=== PATIENT | male | born 1930 | race Caucasian/White ===

== ENCOUNTER 2017-02-25 15:06 | Inpatient (IN) | payer OTHER ==
[~2017-02-25] VITALS: Ht 185.4 cm; Wt 75.6 kg
[~2017-02-25 15:06] MED LIST: FLUT0.15 NAE; FOLI1TAB7 PO; HYDR200T5 PO; METH2.5T PO; MULTTAB58 PO; NUTR-706 PO; PRED1SUS OPL; SENN-61 PO
[2017-02-25] MEDS ORDERED: ONDANSETRON INJ 2 MG/ML 2 ML VIAL ONE (15:18)
[2017-02-25] MEDS ORDERED: PRED-301 PO (15:47)
[2017-02-25] MEDS ORDERED: SODIUM CHLORIDE 0.9% 1000ML 1,000 ML IV STA ×3 (16:12→21:43)
[2017-02-25] MEDS ORDERED: FAMOTIDINE 20MG/102 ML D5W IV STA (16:12)
--- NOTE | 2017-02-25 16:18 | EMERGENCY ROOM VISIT NOTE ---
History Report prepared by Michele: Mikki Riggs Under the Supervision of: Dr. Sampson Kenny M.D. First contact with patient: 16:02 Chief Complaint: VOMITING Stated Complaint: difficulty swallowing Nursing Triage Summary: pt arrived als reported felt throat closing then started with thick mucus and drive heving then to vomiting bile pt and report this happened before pt had to have 1/2 stomach removed 2011 ( stomach tissue) caused buring in the throat was on feeding tube for 8 months bladder [id number] History of Present Illness The patient is a 86 year old male who presents to the Emergency Room with complaints of sudden difficulty swallowing beginning today. He states that he feels as if something is closing his throat and that it is painful to swallow. Per his , he had these symptoms 5 years ago and had a stomach resection and was placed on a feeding tube for 8 months. The patient has also been vomiting and has had bile in his stool. He denies fevers, chills, diarrhea, and constipation. The patient also denies chest pain and shortness of breath. He reports that he is not on any blood thinners. The patient has an ostomy because he has bladder cancer. Source of History: patient, spouse/significant other Onset: today Position: throat Quality: other (difficulty swallowing ) Timing: other (sudden) Associated Symptoms: + vomiting, + urinary symptoms (bile in stool), No fevers, No chills, No chest pain, No SOB, No diarrhea Review of Systems See HPI for pertinent positives and negatives. A total of ten systems were reviewed and were otherwise negative. Past Medical & Surgical Medical Problems: (1) Benign hypertension (2) Benign prostatic hyperplasia (3) Bladder cancer (4) Chronic ischemic heart disease (5) Gastroesophageal reflux disease (6) History of polyp of colon (7) Hyperlipidemia (8) Hypotension (9) s/p colonoscopy with polypectomy (10) s/p hemorrhoidectomy (11) s/p hernia repair (12) s/p lap cholecystectomy (13) s/p tonsillectomy (14) SBO (small bowel obstruction) Family History No pertinent family history stated. Social History Smoking Status: Never Smoker Alcohol Use: none Marital Status: Housing Status: lives with family Current/Historical Medications Scheduled Enteral Nutrition Formula (Ensure), 1 DOSE PO TID Hydroxychloroquine Sulfate (Plaquenil), 400 MG PO QPM Multiple Vitamin (Multivitamin), 1 TAB PO QAM Prednisone (Prednisone), 5 MG PO BID Senna (Senokot), 1 TAB PO BID Scheduled PRN Fluticasone Propionate (Nasal) (Flonase Allergy Relief), 2 SPRAYS BRITTNEY DAILY PRN for Nasal Congestion Allergies Coded Allergies: Piperacillin (Verified Allergy, Severe, SHORTNESS OF BREATH, 02/25/17) Tazobactam (Verified Allergy, Severe, SHORTNESS OF BREATH, 02/25/17) Sulfa Antibiotics (Verified Allergy, Unknown, SWELLING, 02/25/17) Propoxyphene (Verified Adverse Reaction, Unknown, BLOOD PRESSURE DROPS, ) Physical Exam Vital Signs Date Time Temp Pulse Resp B/P (MAP) Pulse Ox O2 Delivery O2 Flow Rate FiO2 02/25/17 21:59 75 22 104/77 93 Nasal Cannula 2.0 02/25/17 21:44 83 02/25/17 21:09 82 02/25/17 20:05 84 22 133/82 92 02/25/17 18:26 81 24 146/97 98 Room Air 02/25/17 17:05 72 18 174/93 100 Room Air 02/25/17 16:16 80 02/25/17 15:29 36.8 76 18 166/90 98 Room Air Physical Exam GENERAL: Awake, alert, chronically ill-appearing, fatigued HENT: Normocephalic, atraumatic. Oropharynx unremarkable. Dry mucous membranes. EYES: Normal conjunctiva. Sclera non-icteric. NECK: Supple. No nuchal rigidity. FROM. No JVD. RESPIRATORY: Clear to auscultation. CARDIAC: Regular rate, normal rhythm. Extremities warm and well perfused. Pulses equal. ABDOMEN: Soft, non-distended. No tenderness to palpation. No rebound or guarding. No masses. RECTAL: Deferred. MUSCULOSKELETAL: Chest examination reveals no tenderness. The back is symmetrical on inspection without obvious abnormality. There is no CVA tenderness to palpation. No joint edema. LOWER EXTREMITIES: Calves are equal size bilaterally and non-tender. No edema. No discoloration. NEURO: Normal sensorium. No sensory or motor deficits noted. SKIN: No rash or jaundice noted. Medical Decision & Procedures ER Provider Diagnostic Interpretation: X-ray: Per my interpretation, radiologist review. CHEST ONE VIEW PORTABLE CLINICAL HISTORY: sob dyspnea COMPARISON STUDY: 06/04/2012 FINDINGS: Interval radiopaque densities of both lung bases. Mild chronic right apical pleural thickening. No focal infiltrate. No cardiac enlargement. IMPRESSION: Chronic change. No acute process. The above report was generated using voice recognition software. It may contain grammatical, syntax or spelling errors. Electronically signed by: Shahbaz Chandra M.D. 02/25/2017 4:44 PM Dictated Date/Time: 02/25/2017 4:43 PM Radiology results as stated below per my review and radiologist interpretation: SOFT TISSUE NECK WITH CLINICAL HISTORY: dysphagia h/o cancer neoplasm. Dysphagia. TECHNIQUE: Transaxial acquisition with multi axial reformatted images COMPARISON STUDY: None FINDINGS: Major salivary glands appear unremarkable. The parotid and submandibular glands are unremarkable. No evidence for major airway compromise. The epiglottis is normal. Mild to moderate fullness of the soft tissues in the region of the larynx. The glottic and subglottic regions are unremarkable. Pulmonary apices show mild apical fibrotic changes in the right. There is no significant cervical adenopathy. IMPRESSION: 1. Mild/moderate laryngeal general edema. 2. No evidence for significant airway compromise. 3. No significant adenopathy, mass, or collection. The above report was generated using voice recognition software. It may contain grammatical, syntax or spelling errors. Electronically signed by: Shahbaz Chandra M.D. 02/25/2017 7:17 PM Dictated Date/Time: 02/25/2017 7:[address] WITH CONTRAST CT DOSE: HISTORY: dysphagia h/o cancer TECHNIQUE: Multiaxial CT images of the chest were performed following the intravenous administration of contrast. A dose lowering technique was utilized adhering to the principles of ALARA. COMPARISON: None. FINDINGS: No pneumothorax. No pleural effusions. Right middle lobe and left basilar clustered densities suggestive of prior barium aspiration. Mild laryngeal edema. Mild esophageal wall thickening/submucosal edema. No mediastinal or hilar lymphadenopathy. The heart is normal in size. No pericardial effusion. A single prominent left axillary lymph node measuring 16 x 9 mm. This measures subcentimeter in short axis diameter and therefore does not meet CT criteria for pathologic involvement. Coronary artery calcifications. The ascending thoracic aorta measures up to 3.8 cm in diameter. No evidence for aortic dissection. The main pulmonary arteries are patent. No suspicious lytic or blastic osseous lesions. Mild central bronchial wall thickening. The central airways are patent. Mild nodular groundglass densities within the infrahilar locations adjacent to the multiple clustered calcifications. A few faint tree-in-bud nodular opacities within the periphery the right lower lobe. A few linear scarlike densities within the lingula. IMPRESSION: 1. Mild laryngeal and esophageal submucosal edema. This is nonspecific but could be due to posttreatment changes. Clinical correlation recommended. 2. Bilateral infrahilar groundglass densities which could be due to mild inflammatory/infectious change or post radiation changes. 3. A few groundglass nodular/tree-in-bud densities seen within the lower lobes. This favors a a mild infectious bronchiolitis. 4. Cluster of calcifications/densities within the right middle lobe and left lower lobe. This may represent prior aspiration of barium. 5. A single prominent left axillary lymph node. Electronically signed by: Jayce Raman M.D. 02/25/2017 7:26 PM Dictated Date/Time: 02/25/2017 7:14 PM ABDOMEN AND PELVIS CT WITH IV CONTRAST CT DOSE: 2072.33 mGycm HISTORY: epigastric pain h/o cancer TECHNIQUE: Multiaxial CT images of the abdomen and pelvis were performed following the use of intravenous contrast. A dose lowering technique was utilized adhering to the principles of ALARA. COMPARISON STUDY: Abdomen and pelvis CT 10/07/2011. FINDINGS: A cluster of densities within the base of the left lower lobe may be due to prior aspiration of barium. Pneumatosis within the mid small bowel. Mild mesenteric edema surrounding the left side of the small bowel. Multiple small bowel diverticula. Distended loops of small bowel seen throughout the majority of the abdomen. The distal ileum is decompressed. Possible transition point within an ileal loop best seen on image 204 within the right side the abdomen. Therefore, these findings favor a small bowel obstruction. Normal appendix. Stomach is mild distended and fluid-filled. Postoperative changes within the stomach are again noted. Right lower quadrant ostomy. Bladder is identified and is likely surgically absent. Suggestion of an ileal loop diversion. Small bilateral renal cysts. No hydronephrosis. The adrenal glands, liver, and spleen are unremarkable. The pancreas enhances normally. Cholecystectomy. No retroperitoneal lymphadenopathy. The prostate gland is also surgically absent. No suspicious lytic or blastic osseous lesions. Multiple small bowel diverticula are noted. IMPRESSION: 1. Multiple distended gas and fluid-filled loops of small bowel seen throughout the abdomen. Possible transition point within the ileum within the right lower quadrant as described above. Therefore, this likely represents a small bowel obstruction. In addition, there are few small bowel loops within the right mid abdomen which demonstrate pneumatosis. This raises the possibility of ischemic bowel. Clinical correlation recommended. 2. Postoperative changes as described above. 3. Findings were discussed with Dr. Kenny at 7:15PM on 02/25/2017. Electronically signed by: Jayce Raman M.D. 02/25/2017 7:13 PM Dictated Date/Time: 02/25/2017 6:58 PM X-ray: Per my interpretation, radiologist review. CHEST ONE VIEW PORTABLE HISTORY: Hypoxia. COMPARISON: Chest CT 02/17/2017. FINDINGS: No pneumothorax. Stable basilar medial densities suggesting prior aspiration of barium. No new focal lung consolidations. No evidence for pulmonary edema. A few linear density left lung base and left midlung zone favor scarring/atelectasis. IMPRESSION: 1. Chronic changes as described above. No new focal lung consolidations. 2. Of note, the same day chest CT demonstrated laryngeal edema which may represent an allergic reaction. 3. Findings discussed with Dr. Kenny at 9:22 PM on 02/25/2017. Electronically signed by: Jayce Raman M.D. 02/25/2017 9:22 PM Dictated Date/Time: 02/25/2017 9:17 PM Laboratory Results 02/25/17 15:45 Red Blood Count 4.96, Mean Corpuscular Volume 89.3, Mean Corpuscular Hemoglobin 28.0, Mean Corpuscular Hemoglobin Concent 31.4, Mean Platelet Volume 9.7, Neutrophils (%) (Auto) 78.4, Lymphocytes (%) (Auto) 12.1, Monocytes (%) (Auto) 6.4, Eosinophils (%) (Auto) 1.6, Basophils (%) (Auto) 0.2, Neutrophils # (Auto) 6.73, Lymphocytes # (Auto) 1.04, Monocytes # (Auto) 0.55, Eosinophils # (Auto) 0.14, Basophils # (Auto) 0.02 02/25/17 15:45 Test 02/25/17 15:45 02/25/17 16:33 02/25/17 17:05 White Blood Count 8.59 K/uL (4.8-10.8) Red Blood Count 4.96 M/uL (4.7-6.1) Hemoglobin 13.9 g/dL (14.0-18.0) Hematocrit 44.3 % (42-52) Mean Corpuscular Volume 89.3 fL (80-100) Mean Corpuscular Hemoglobin 28.0 pg (25-34) Mean Corpuscular Hemoglobin Concent 31.4 g/dl (32-36) Platelet Count 232 K/uL (130-400) Mean Platelet Volume 9.7 fL (7.4-10.4) Neutrophils (%) (Auto) 78.4 % Lymphocytes (%) (Auto) 12.1 % Monocytes (%) (Auto) 6.4 % Eosinophils (%) (Auto) 1.6 % Basophils (%) (Auto) 0.2 % Neutrophils # (Auto) 6.73 K/uL (1.4-6.5) Lymphocytes # (Auto) 1.04 K/uL (1.2-3.4) Monocytes # (Auto) 0.55 K/uL (0.11-0.59) Eosinophils # (Auto) 0.14 K/uL (0-0.5) Basophils # (Auto) 0.02 K/uL (0-0.2) RDW Standard Deviation 48.7 fL (36.4-46.3) RDW Coefficient of Variation 15.0 % (11.5-14.5) Immature Granulocyte % (Auto) 1.3 % Immature Granulocyte # (Auto) 0.11 K/uL (0.00-0.02) Anion Gap 9.0 mmol/L (3-11) Est Creatinine Clear Calc Drug Dose 62.6 ml/min Estimated GFR () 85.9 Estimated GFR (Non- 74.2 BUN/Creatinine Ratio 31.0 (10-20) Calcium Level 9.0 mg/dl (8.5-10.1) Magnesium Level 2.2 mg/dl (1.8-2.4) Total Bilirubin 0.4 mg/dl (0.2-1) Direct Bilirubin 0.1 mg/dl (0-0.2) Aspartate Amino Transf (AST/SGOT) 21 U/L (15-37) Alanine Aminotransferase (ALT/SGPT) 24 U/L (12-78) Alkaline Phosphatase 68 U/L (45-117) Troponin I < 0.015 ng/ml (0-0.045) Total Protein 6.8 gm/dl (6.4-8.2) Albumin 3.2 gm/dl (3.4-5.0) Lipase 144 U/L (73-393) Lactic Acid Level 0.9 mmol/L (0.4-2.0) Urine Color DK YELLOW Urine Appearance CLOUDY (CLEAR) Urine pH 8.5 (4.5-7.5) Urine Specific [place] 1.015 (1.000-1.030) Urine Protein TRACE (NEG) Urine Glucose (UA) NEG (NEG) Urine Ketones NEG (NEG) Urine Occult Blood NEG (NEG) Urine Nitrite POS (NEG) Urine Bilirubin NEG (NEG) Urine Urobilinogen NEG (NEG) Urine Leukocyte Esterase MODERATE (NEG) Urine WBC (Auto) 10-30 /hpf (0-5) Urine RBC (Auto) 0-4 /hpf (0-4) Urine Hyaline Casts (Auto) 1-5 /lpf (0-5) Urine Epithelial Cells (Auto) 0-5 /lpf (0-5) Urine Bacteria (Auto) 2+ (NEG) Urine Crystals TRIPLE PHOSPHATE Laboratory results reviewed by me Medications Administered Medications (Trade) Dose Ordered Sig/Russ Route Start Time Stop Time Status Last Admin Dose Admin Ondansetron HCl (Zofran Inj) 4 mg STK-MED ONCE .ROUTE 02/25/17 15:18 02/25/17 15:19 DC 02/25/17 15:18 4 MG Sodium Chloride 1,000 ml @ 999 mls/hr Q1H1M STAT IV 02/25/17 16:12 02/25/17 17:12 DC 02/25/17 16:12 999 MLS/HR Famotidine (Pepcid 20mg/100 ml) 20 mg ONE STAT IV 02/25/17 16:12 02/25/17 16:20 DC 02/25/17 16:54 20 MG Ondansetron HCl (Zofran Inj) 4 mg NOW STAT IV 02/25/17 18:19 02/25/17 18:21 DC 02/25/17 18:23 4 MG Piperacillin Sod/ Tazobactam Sod (Zosyn Iv) 4.5 gm NOW STAT IV 02/25/17 19:31 02/25/17 19:36 DC 02/25/17 20:04 4.5 GM Sodium Chloride 1,000 ml @ 999 mls/hr Q1H1M STAT IV 02/25/17 19:31 02/25/17 20:31 DC 02/25/17 19:31 999 MLS/HR Vancomycin HCl 1500 mg/Sodium Chloride 530 ml @ 200 mls/hr NOW ONCE IV 02/25/17 20:00 02/25/17 22:38 DC 02/25/17 20:00 200 MLS/HR Cefepime HCl 2000 mg/Dextrose 112.5 ml @ 200 mls/hr NOW STAT IV 02/25/17 20:30 02/25/17 21:03 DC 02/25/17 20:30 200 MLS/HR Metronidazole (Flagyl / Nss) 500 mg NOW STAT IV 02/25/17 20:30 02/25/17 20:35 DC 02/25/17 20:59 500 MG Dexamethasone Sodium Phosphate (Decadron Inj) 10 mg NOW ONCE IV 02/25/17 21:30 02/25/17 21:31 DC 02/25/17 22:16 10 MG Sodium Chloride 1,000 ml @ 125 mls/hr Q8H STAT IV 02/25/17 21:43 02/26/17 00:35 DC 02/25/17 21:43 125 MLS/HR ECG Indication: vomiting Rate (beats per minute): 64 Rhythm: sinus with SA Findings: 1st degree AV block, nonspecific-ST abn (Anterolateral), other (no overt signs of acute ischemia, non-specific T wave abnormality anterolaterally) ED Course 1600: The patient was evaluated in room C8. A complete history and physical exam was performed. 1611: Ordered Famotidine 20 mg IV, Sodium Chloride 1,000 ml @ 999 mls/hr IV. 1818: Ordered Zofran Inj 4 mg IV. 1930: Ordered Sodium Chloride 1,000 ml @ 999 mls/hr IV, Zosyn Iv 4.5 gm IV, Vancomycin HCl 1.5 mg/Sodium Chloride 500.03 @ 200 mls/hr IV. 1941: Dr. Murphy discussed the case with Dr. Raman. 1954: Dr. Murphy discussed with me what Dr. Raman of radiology told him regarding the patient's radiology reports. 1999: Ordered Vancomycin HCl 1,500 mg/Sodium Chloride 530 ml @ 200 mls/hr IV. 2025: Dr. Murphy discussed the patient's case with Dr. Lopez, as I was on the phone. 2029: Ordered Metronidazole 500 mg IV, Cefepime HCl 2,000 mg/Dextrose 112.5 @ 200 mls/hr IV, Decadron Inj 10 mg IV. 2031: Dr. Murphy discussed with me what Dr. Lopez discussed about the patient. She will come down to evaluate the patient. 2109: I discussed the patient's case with Dr. Lopez. 2142: Ordered Sodium Chloride 1,000 ml @ 125 mls/hr IV. 2144: I spoke to Dr. Chu of [facility] who will admit him. 2199: Upon reexamination, the patient was resting. I discussed the test results and treatment plan with him. The patient will be evaluated for further management. Medical Decision I reviewed the patient's past medical history, medications, and the nursing notes as described above. Differentials include: gastritis, peptic ulcer, malignancy, ACS, pneumonia, and bronchitis. 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 On arrival patient appears chronically ill and uncomfortable but in no acute distress. Patient has mild epigastric discomfort but otherwise no peritoneal signs. Lungs are diminished at the bases otherwise clear. CT of the patient's abdomen and pelvis chest and soft tissue neck notable for numerous concerning finding including SBO with pneumatosis and concerning for ischemia, laryngeal edema likely secondary the patient's persistent bilious vomiting, numerous areas of ground glass opacities concerning for infection and inflammatory process question history of prior barium aspiration. Patient ordered for VAnc/zosyn but had allergic reaction to Zosyn with diffuse erythematous rash. Thus given Cefepime/flagyl. Of note, patient developed low blood pressure with systolic in the 90s after allergic episode without any wheezing. Bedside ultrasound shows collapsed IVC suggesting intravascular depletion. Thus the patient was given IV fluids with good effect with systolic blood pressure in the 100s. It is also possible that his blood pressure possibly due to his allergic reaction however considering patient was fluid responsive, no indication for epinephrine at this time. Given dexamethasone for his residual edema and has no signs of stridor at this time. Case d/w Dr. Lopez who evaluated patient and will follow the patient but given multiple processes ongoing at this time not surgical candidate. N/v controlled thus no need for NGT at this time. Case d/w [facility] hospitalist, Dr. Colon, who will admit the patient for further management. Medication Reconcilliation Current Medication List: was personally reviewed by me Blood Pressure Screening Patient's blood pressure: Elevated blood pressure Blood pressure disposition: Elevated BP felt to be situational Consults Time Called: 1939 Consulting Physician: Dr. Raman-Radiology Returned Call: 1941 Dr. Murphy discussed the case with Dr. Raman. Additional Consults: Time Called: 1949 Consulted Physician: Dr. Murphy Returned Call: 1954 Additional Comments: Dr. Murphy discussed with me what Dr. Raman of radiology told him regarding the patient's radiology reports. Time Called: 2019 Consulted Physician: Dr. Lopez-General Surgery Returned Call: 2025 Additional Comments: Dr. Murphy discussed the patient's case with Dr. Lopez, as I was on the phone. Impression Primary Impression: Sepsis Additional Impressions: Pneumonia Bowel obstruction UTI (urinary tract infection) Laryngeal edema Allergic reaction Critical Care I have personally spent greater than 50 minutes of critical care time in the direct management of this patient. This includes bedside care, interpretation of diagnostic studies, and testing, discussion with consultants, patient, and family members, and other required patient management activities. This 50 minutes is in excess of all separately billable procedures. Scribe Attestation The scribe's documentation has been prepared under my direction and personally reviewed by me in its entirety. I confirm that the note above accurately reflects all work, treatment, procedures, and medical decision making performed by me. Departure Information Dispostion Being Evaluated By Hospitalist Referrals (PCP) Patient Instructions My [facility] Problem Qualifiers
[2017-02-25 16:27] LABS: BASO % 0.2 %; BASO ABS # 0.02 K/uL (0-0.2); COMPLETE YES; EOS % 1.6 %; HEMATOCRIT 44.3 % (42-52); IG% 1.3 %; LYMPH % 12.1 %; LYMPH ABS # 1.04 K/uL (1.2-3.4); MEAN CELL VOLUME 89.3 fL (80-100); MEAN CORPUSCULAR HGB CONC 31.4 g/dl (32-36); MEAN PLATELET VOLUME 9.7 fL (7.4-10.4); MONO % 6.4 %; NEUT % 78.4 %; PLATELET COUNT 232 K/uL (130-400); RED BLOOD COUNT 4.96 M/uL (4.7-6.1); WHITE BLOOD COUNT 8.59 K/uL (4.8-10.8)
[2017-02-25 16:36] LABS: ALT/SGPT 24 U/L (12-78); BLOOD UREA NITROGEN 29 mg/dl (7-18); CARBON DIOXIDE 24 mmol/L (21-32); CHLORIDE 105 mmol/L (98-107); CREATININE 0.94 mg/dl (0.60-1.40); GLUCOSE 90 mg/dl (70-99); POTASSIUM 3.9 mmol/L (3.5-5.1); SODIUM 138 mmol/L (136-145)
[2017-02-25 16:43] LABS: ALKALINE PHOSPHATASE 68 U/L (45-117); AST/SGOT 21 U/L (15-37)
--- NOTE | 2017-02-25 16:45 | DIAGNOSTIC IMAGING REPORT ---
CHEST ONE VIEW PORTABLE CLINICAL HISTORY: sob dyspnea COMPARISON STUDY: 06/04/2012 FINDINGS: Interval radiopaque densities of both lung bases. Mild chronic right apical pleural thickening. No focal infiltrate. No cardiac enlargement. IMPRESSION: Chronic change. No acute process. The above report was generated using voice recognition software. It may contain grammatical, syntax or spelling errors. Electronically signed by: Shahbaz Chandra M.D. 02/25/2017 4:44 PM Dictated Date/Time: 02/25/2017 4:43 PM
[2017-02-25 17:31] LABS: URINE APPEARANCE CLOUDY (CLEAR); URINE BILIRUBIN NEG (NEG); URINE COLOR DK YELLOW; URINE EPITHELIAL CELL AUTO 0-5 /lpf (0-5); URINE NITRITE POS (NEG); URINE PH 8.5 (4.5-7.5); URINE SPECIFIC GRAVITY 1.015 (1.000-1.030); UROBILINOGEN NEG (NEG); ZZUR CULT IF INDIC CLEAN CATCH YES
[2017-02-25 17:32] LABS: MANUAL MICROSCOPIC REQUIRED? NO; REVIEW REQ? YES
[2017-02-25 17:34] LABS: SULFASALICYLIC ACID POS (NEG)
[2017-02-25] MEDS ORDERED: OPTIRAY 320 IV PRN (17:45)
[2017-02-25] MEDS ORDERED: ONDANSETRON INJ 2 MG/ML 2 ML VIAL IV STA (18:19)
--- NOTE | 2017-02-25 19:16 | DIAGNOSTIC IMAGING REPORT ---
ADDENDUM Findings were discussed with Dr. Murphy and not Dr. Kenny at 7:42 PM on 02/25/2017. Electronically signed by: Jayce Raman M.D. 02/25/2017 7:43 PM Dictated Date/Time: 02/25/2017 7:41 PM ORIGINAL REPORT ABDOMEN AND PELVIS CT WITH IV CONTRAST CT DOSE: 2072.33 mGycm HISTORY: epigastric pain h/o cancer TECHNIQUE: Multiaxial CT images of the abdomen and pelvis were performed following the use of intravenous contrast. A dose lowering technique was utilized adhering to the principles of ALARA. COMPARISON STUDY: Abdomen and pelvis CT 10/07/2011. FINDINGS: A cluster of densities within the base of the left lower lobe may be due to prior aspiration of barium. Pneumatosis within the mid small bowel. Mild mesenteric edema surrounding the left side of the small bowel. Multiple small bowel diverticula. Distended loops of small bowel seen throughout the majority of the abdomen. The distal ileum is decompressed. Possible transition point within an ileal loop best seen on image 204 within the right side the abdomen. Therefore, these findings favor a small bowel obstruction. Normal appendix. Stomach is mild distended and fluid-filled. Postoperative changes within the stomach are again noted. Right lower quadrant ostomy. Bladder is identified and is likely surgically absent. Suggestion of an ileal loop diversion. Small bilateral renal cysts. No hydronephrosis. The adrenal glands, liver, and spleen are unremarkable. The pancreas enhances normally. Cholecystectomy. No retroperitoneal lymphadenopathy. The prostate gland is also surgically absent. No suspicious lytic or blastic osseous lesions. Multiple small bowel diverticula are noted. IMPRESSION: 1. Multiple distended gas and fluid-filled loops of small bowel seen throughout the abdomen. Possible transition point within the ileum within the right lower quadrant as described above. Therefore, this likely represents a small bowel obstruction. In addition, there are few small bowel loops within the right mid abdomen which demonstrate pneumatosis. This raises the possibility of ischemic bowel. Clinical correlation recommended. 2. Postoperative changes as described above. 3. Findings were discussed with Dr. Kenny at 7:15PM on 02/25/2017. Electronically signed by: Jayce Raman M.D. 02/25/2017 7:13 PM Dictated Date/Time: 02/25/2017 6:58 PM
--- NOTE | 2017-02-25 19:19 | DIAGNOSTIC IMAGING REPORT ---
SOFT TISSUE NECK WITH CLINICAL HISTORY: dysphagia h/o cancer neoplasm. Dysphagia. TECHNIQUE: Transaxial acquisition with multi axial reformatted images COMPARISON STUDY: None FINDINGS: Major salivary glands appear unremarkable. The parotid and submandibular glands are unremarkable. No evidence for major airway compromise. The epiglottis is normal. Mild to moderate fullness of the soft tissues in the region of the larynx. The glottic and subglottic regions are unremarkable. Pulmonary apices show mild apical fibrotic changes in the right. There is no significant cervical adenopathy. IMPRESSION: 1. Mild/moderate laryngeal general edema. 2. No evidence for significant airway compromise. 3. No significant adenopathy, mass, or collection. The above report was generated using voice recognition software. It may contain grammatical, syntax or spelling errors. Electronically signed by: Shahbaz Chandra M.D. 02/25/2017 7:17 PM Dictated Date/Time: 02/25/2017 7:11 PM
--- NOTE | 2017-02-25 19:30 | DIAGNOSTIC IMAGING REPORT ---
CHEST CT WITH CONTRAST CT DOSE: HISTORY: dysphagia h/o cancer TECHNIQUE: Multiaxial CT images of the chest were performed following the intravenous administration of contrast. A dose lowering technique was utilized adhering to the principles of ALARA. COMPARISON: None. FINDINGS: No pneumothorax. No pleural effusions. Right middle lobe and left basilar clustered densities suggestive of prior barium aspiration. Mild laryngeal edema. Mild esophageal wall thickening/submucosal edema. No mediastinal or hilar lymphadenopathy. The heart is normal in size. No pericardial effusion. A single prominent left axillary lymph node measuring 16 x 9 mm. This measures subcentimeter in short axis diameter and therefore does not meet CT criteria for pathologic involvement. Coronary artery calcifications. The ascending thoracic aorta measures up to 3.8 cm in diameter. No evidence for aortic dissection. The main pulmonary arteries are patent. No suspicious lytic or blastic osseous lesions. Mild central bronchial wall thickening. The central airways are patent. Mild nodular groundglass densities within the infrahilar locations adjacent to the multiple clustered calcifications. A few faint tree-in-bud nodular opacities within the periphery the right lower lobe. A few linear scarlike densities within the lingula. IMPRESSION: 1. Mild laryngeal and esophageal submucosal edema. This is nonspecific but could be due to posttreatment changes. Clinical correlation recommended. 2. Bilateral infrahilar groundglass densities which could be due to mild inflammatory/infectious change or post radiation changes. 3. A few groundglass nodular/tree-in-bud densities seen within the lower lobes. This favors a a mild infectious bronchiolitis. 4. Cluster of calcifications/densities within the right middle lobe and left lower lobe. This may represent prior aspiration of barium. 5. A single prominent left axillary lymph node. Electronically signed by: Jayce Raman M.D. 02/25/2017 7:26 PM Dictated Date/Time: 02/25/2017 7:14 PM
[2017-02-25] MEDS ORDERED: PIPERACILLIN/TAZOBACTAM 4.5 GM/100ML D5W IV STA (19:31)
[2017-02-25] MEDS ORDERED: SODIUM CHLORIDE 0.9% IV STA (19:31)
[2017-02-25] MEDS ORDERED: VANCOMYCIN IV STA (19:31)
[2017-02-25] MEDS ORDERED: VANCOMYCIN INJ 1,500 MG in SODIUM CHLORIDE 0.9% 500ML 500 ML IV ONE (20:00)
[2017-02-25] MEDS ORDERED: CEFEPIME IV 2,000 MG in DEXTROSE 5% 100ML 100 ML IV STA (20:30)
[2017-02-25] MEDS ORDERED: METRONIDAZOLE 500MG / 100ML NSS IV STA (20:30)
--- NOTE | 2017-02-25 21:23 | DIAGNOSTIC IMAGING REPORT ---
CHEST ONE VIEW PORTABLE HISTORY: Hypoxia. COMPARISON: Chest CT 02/17/2017. FINDINGS: No pneumothorax. Stable basilar medial densities suggesting prior aspiration of barium. No new focal lung consolidations. No evidence for pulmonary edema. A few linear density left lung base and left midlung zone favor scarring/atelectasis. IMPRESSION: 1. Chronic changes as described above. No new focal lung consolidations. 2. Of note, the same day chest CT demonstrated laryngeal edema which may represent an allergic reaction. 3. Findings discussed with Dr. Kenny at 9:22 PM on 02/25/2017. Electronically signed by: Jayce Raman M.D. 02/25/2017 9:22 PM Dictated Date/Time: 02/25/2017 9:17 PM
[2017-02-25] MEDS ORDERED: DEXAMETHASONE SOD INJ 10 MG/ML VIAL IV ONE (21:30)
--- NOTE | 2017-02-25 21:50 | Surgery Consultation ---
Consultation Date of Consultation: Feb 25, 2017. Attending Physician: Reason for Consultation: Abdominal pain, nausea and vomiting, concern for SBO History of Present Illness Jeffrey Gutierrez is an 86 year old man with history of gastric volvulus s/p partial gastrectomy, gastrostomy tube x 8 months, bladder cancer s/p resection with ileal conduit creation who presented to the ED with complaint of difficulty swallowing and sensation that his throat was closing. Per his , he started having abdominal pain with burning feeling from reflux and eventual vomiting around 10am this morning. She states he frequently has reflux symptoms which cause burning of his esophagus and throat, and chronically has issues with swallowing. After he had the vomiting, he began having the difficulty swallowing and sensation of throat closing. He may have aspirated, because around the same time he started coughing and has had a cough productive of white sputum (notes earlier it was greenish) since this morning. Notes the coughing spells trigger gagging and retching, which exacerbate his throat symptoms. On exam, he currently denies any abdominal pain, nausea or vomiting. He was observed to start coughing and spit out white sputum, which triggered retching. Abdomen is soft, non distended, non tender to palpation, no rebound / guarding. Last BM was reported to be last night - normal / solid / formed, denies melena / hematochezia. States at baseline he has constipation for which he takes a daily stool softener; there have been no recent changes to his normal pattern. Ileal conduit has been functioning normally with clear / yellow urine reported. Denies fever, chills, headaches, dizziness, vision changes, chest pain, SOB, pain / numbness / swelling / tingling in extremities. Does not take any anticoagulation. Patient has a surgical history as follows: -Right inguinal hernia repair -Hemorrhoidectomy -Laparoscopic cholecystectomy -Partial gastrectomy -Gastrostomy tube -Bladder resection with ileal conduit creation Past Medical/Surgical History Medical History: (1) Benign hypertension (2) Benign prostatic hyperplasia (3) Bladder cancer (4) Chronic ischemic heart disease (5) Gastroesophageal reflux disease (6) History of polyp of colon (7) Hyperlipidemia Surgical History: (1) Colonoscopy with polypectomy (2) Hemorrhoidectomy (3) Right inguinal hernia repair (4) Laparoscopic cholecystectomy (5) Tonsillectomy (6) Partial Gastrectomy with gastrostomy tube placement (7) Bladder resection with ileal conduit creation Social History Smoking Status: Never Smoker Marital Status: Housing Status: lives with family Allergies Coded Allergies: Piperacillin (Verified Allergy, Severe, SHORTNESS OF BREATH, 02/25/17) Tazobactam (Verified Allergy, Severe, SHORTNESS OF BREATH, 02/25/17) Sulfa Antibiotics (Verified Allergy, Unknown, SWELLING, 02/25/17) Propoxyphene (Verified Adverse Reaction, Unknown, BLOOD PRESSURE DROPS, ) Home Medications Scheduled Enteral Nutrition Formula (Ensure), 1 DOSE PO TID Hydroxychloroquine Sulfate (Plaquenil), 400 MG PO QPM Multiple Vitamin (Multivitamin), 1 TAB PO QAM Prednisone (Prednisone), 5 MG PO BID Senna (Senokot), 1 TAB PO BID Scheduled PRN Fluticasone Propionate (Nasal) (Flonase Allergy Relief), 2 SPRAYS BRITTNEY DAILY PRN for Nasal Congestion Current Inpatient Medications Current Inpatient Medications Medications (Trade) Dose Ordered Sig/Russ Route Start Time Stop Time Status Last Admin Dose Admin Ioversol (Optiray 320) 100 ml UD PRN IV 02/25/17 17:45 03/01/17 17:44 Vancomycin HCl 1500 mg/Sodium Chloride 530 ml @ 200 mls/hr NOW ONCE IV 02/25/17 20:00 02/25/17 22:38 Review of Systems Constitutional: No fever, No chills, No sweats Eyes: No worsening of vision, No eye pain Respiratory: + cough, + sputum, + dyspnea on exertion Cardiovascular: No chest pain, No edema Abdomen: + pain, + nausea, + vomiting Integumentary: + rash (in ED s/p Zosyn administration) Physical Exam Date Time Temp Pulse Resp B/P (MAP) Pulse Ox O2 Delivery O2 Flow Rate FiO2 02/25/17 21:09 82 02/25/17 20:05 84 22 133/82 92 02/25/17 18:26 81 24 146/97 98 Room Air 02/25/17 17:05 72 18 174/93 100 Room Air 02/25/17 16:16 80 02/25/17 15:29 36.8 76 18 166/90 98 Room Air General Appearance: WD/WN, no apparent distress Head: normocephalic, atraumatic Eyes: normal inspection Neck: supple Respiratory/Chest: no respiratory distress, no accessory muscle use, + rhonchi (Coarse breath sounds bilaterally, cough productive of white sputum) Cardiovascular: regular rate, rhythm, no edema Abdomen/GI: non tender, soft (no rebound / guarding), + abnormal bowel sounds ( hypoactive), + pertinent finding (well healed midline incision, ileal conduit functioning) Extremities/Musculoskelatal: no pedal edema Neurologic/Psych: alert, normal mood/affect, oriented x 3 Skin: + pertinent finding (diffuse whole body erythema s/p zosyn administration ) Laboratory Results Last 24 Hours Test 02/25/17 15:45 02/25/17 16:33 02/25/17 17:05 White Blood Count 8.59 K/uL Red Blood Count 4.96 M/uL Hemoglobin 13.9 g/dL Hematocrit 44.3 % Mean Corpuscular Volume 89.3 fL Mean Corpuscular Hemoglobin 28.0 pg Mean Corpuscular Hemoglobin Concent 31.4 g/dl Platelet Count 232 K/uL Mean Platelet Volume 9.7 fL Neutrophils (%) (Auto) 78.4 % Lymphocytes (%) (Auto) 12.1 % Monocytes (%) (Auto) 6.4 % Eosinophils (%) (Auto) 1.6 % Basophils (%) (Auto) 0.2 % Neutrophils # (Auto) 6.73 K/uL Lymphocytes # (Auto) 1.04 K/uL Monocytes # (Auto) 0.55 K/uL Eosinophils # (Auto) 0.14 K/uL Basophils # (Auto) 0.02 K/uL RDW Standard Deviation 48.7 fL RDW Coefficient of Variation 15.0 % Immature Granulocyte % (Auto) 1.3 % Immature Granulocyte # (Auto) 0.11 K/uL Sodium Level 138 mmol/L Potassium Level 3.9 mmol/L Chloride Level 105 mmol/L Carbon Dioxide Level 24 mmol/L Anion Gap 9.0 mmol/L Blood Urea Nitrogen 29 mg/dl Creatinine 0.94 mg/dl Est Creatinine Clear Calc Drug Dose 62.6 ml/min Estimated GFR () 85.9 Estimated GFR (Non- 74.2 BUN/Creatinine Ratio 31.0 Random Glucose 90 mg/dl Calcium Level 9.0 mg/dl Total Bilirubin 0.4 mg/dl Direct Bilirubin 0.1 mg/dl Aspartate Amino Transf (AST/SGOT) 21 U/L Alanine Aminotransferase (ALT/SGPT) 24 U/L Alkaline Phosphatase 68 U/L Troponin I < 0.015 ng/ml Total Protein 6.8 gm/dl Albumin 3.2 gm/dl Lipase 144 U/L Lactic Acid Level 0.9 mmol/L Urine Color DK YELLOW Urine Appearance CLOUDY Urine pH 8.5 Urine Specific [place] 1.015 Urine Protein TRACE Urine Glucose (UA) NEG Urine Ketones NEG Urine Occult Blood NEG Urine Nitrite POS Urine Bilirubin NEG Urine Urobilinogen NEG Urine Leukocyte Esterase MODERATE Urine WBC (Auto) 10-30 /hpf Urine RBC (Auto) 0-4 /hpf Urine Hyaline Casts (Auto) 1-5 /lpf Urine Epithelial Cells (Auto) 0-5 /lpf Urine Bacteria (Auto) 2+ Urine Crystals TRIPLE PHOSPHATE Imagin02/25/17 CXR: FINDINGS: Interval radiopaque densities of both lung bases. Mild chronic right apical pleural thickening. No focal infiltrate. No cardiac enlargement. IMPRESSION: Chronic change. No acute process. 02/25/17 CT Neck: IMPRESSION: 1. Mild/moderate laryngeal general edema. 2. No evidence for significant airway compromise. 3. No significant adenopathy, mass, or collection. 02/25/17 CT Chest: IMPRESSION: 1. Mild laryngeal and esophageal submucosal edema. This is nonspecific but could be due to posttreatment changes. Clinical correlation recommended. 2. Bilateral infrahilar groundglass densities which could be due to mild inflammatory/infectious change or post radiation changes. 3. A few groundglass nodular/tree-in-bud densities seen within the lower lobes. This favors a a mild infectious bronchiolitis. 4. Cluster of calcifications/densities within the right middle lobe and left lower lobe. This may represent prior aspiration of barium. 5. A single prominent left axillary lymph node. 02/25/17 CT Abd / Pelvis with IV contrast (no PO): IMPRESSION: 1. Multiple distended gas and fluid-filled loops of small bowel seen throughout the abdomen. Possible transition point within the ileum within the right lower quadrant as described above. Therefore, this likely represents a small bowel obstruction. In addition, there are few small bowel loops within the right mid abdomen which demonstrate pneumatosis. This raises the possibility of ischemic bowel. Clinical correlation recommended. 2. Postoperative changes as described above. Assessment & Plan Jeffrey Gutierrez is an 86 year old man with extensive past surgical history including partial gastrectomy with temporary gastrostomy tube for gastric volvulus and bladder resection with ileal conduit creation (and reported repair of bowel injury during operation) for bladder cancer who presents with signs and symptoms concerning for a partial small bowel obstruction. He may have also had an aspiration event with the nausea and vomiting episodes earlier today. CT scan is concerning for partial small bowel obstruction, some loops with pneumatosis. He is currently comfortable, denies abdominal pain, abdominal exam benign. No current nausea or vomiting, although coughing spells do trigger gagging / retching. He is afebrile, vitals are stable and normal. No leukocytosis or lactic acidosis; labs are otherwise unremarkable. Recommend non operative management of small bowel obstruction at this time; with his surgical history, an operation would be extremely difficulty with high risk of potential complications. -Recommend medicine evaluation for admission to manage comorbidities and improve respiratory status -No acute surgical intervention indicated at this time. -Recommend antibiotics - IV Cipro / flagyl -NPO, consider NGT if nausea and vomiting return - however this may make the gagging / retching with throat irritation worse -Bowel rest, IV hydration, replete electrolytes as needed -Will closely trend abdominal exam -Trend labs - CBC, BMP, lactic acid -Will continue to follow closely. Carla Lopez MD 02/25/17
[2017-02-26] VITALS (7 sets, daily range): BP systolic 122–142; BP diastolic 76–87; PULSE 62–104; TEMP 36.4–37.3; O2SAT 95–100; Ht 185.4 cm; Wt 75.6 kg
[2017-02-26] MEDS ORDERED: ALBUT/IPRATROP 3MG/0.5MG NEB 3 ML VIAL INH STA (00:07)
[2017-02-26] MEDS ORDERED: ACETAMINOPHEN IV 650 MG in EMPTY BAG 0 ML IV PRN (00:15)
[2017-02-26] MEDS ORDERED: PROMETHAZINE HCL INJ 12.5 MG in SODIUM CHLORIDE 0.9% 50ML 50 ML IV PRN (00:15)
[2017-02-26] MEDS ORDERED: ONDANSETRON INJ 2 MG/ML 2 ML VIAL IV PRN (00:15)
[2017-02-26] MEDS ORDERED: KETOROLAC TROMETHAMINE 15 MG/ML VIAL IV. PRN (00:15)
[2017-02-26] MEDS ORDERED: ALBUT/IPRATROP 3MG/0.5MG NEB 3 ML VIAL INH PRN (00:15)
[2017-02-26] MEDS ORDERED: HYDROmorphone INJ 0.5 MG/0.5 ML SYR IV PRN (00:15)
[2017-02-26] MEDS ORDERED: INVANZ~PHARMACY CONSULT IN PROGRESS PRN (00:45)
[2017-02-26] MEDS ORDERED: NSS + 20MEQ KCL 1000ML 1,000 ML IV SCH (01:30)
[2017-02-26] MEDS: ERTAPENEM IV 1 GM in SODIUM CHLOR 0.9% AD-VAN 50ML IV SCH (01:51)
--- NOTE | 2017-02-26 03:34 | HISTORY & PHYSICAL EXAMINATION ---
DATE OF ADMISSION: 02/25/2017 PRIMARY CARE DOCTOR: Dr. Nash. CHIEF COMPLAINT: Vomiting, dysphagia . HISTORY OF PRESENT ILLNESS: History obtained from patient and records. Medical history significant for CAD, hypertension as per records, skin cancer status post surgery, bladder cancer status post surgery, rheumatoid arthritis on chronic steroid therapy, past tobacco abuse, aspiration risk, bowel obstruction sp surgery. History of MRSA Recent confinement last 2012 for dehydration. Yesterday, patient noted trouble swallowing, subsequent emesis, not much abdominal pain, good bowel movement, worsening of usual cough symptoms, productive of creamy yellow sputum after emesis. Patient brought to the Emergency Room. CT of the soft tissue neck showed moderate laryngeal edema. CT of the abdomen and pelvis showed multiple distended gas filled bowel loops with possible transition point, ileal right lower quadrant, possible small-bowel obstruction, possible ischemic colitis. CT chest showed bilateral ground-glass densities, infection versus post-radiation change. Patient given IV Vancomycin and Zosyn in the Emergency Room. Patient developed erythema after Zosyn infusion. Subsequently given Decadron. Patient currently feeling better. MEDICAL HISTORY: As above. Known aspiration risk as per swallow eval from September 2011 confinement. At that time, the patient was having PEG tube feedings. SURGERIES: Prostate biopsy, fulguration of large bladder tumor, hemorrhoidectomy, ex-lap bowel surgery, cataract surgery, complete cystectomy with ureteral ileal conduit at [facility] in July 2015, partial gastrectomy, hernia repair, skin cancer surgery. HOME MEDICATIONS: Include Ensure, fluticasone, Plaquenil, multivitamins, prednisone, and senna. ALLERGIES: PROPOXYPHENE, SULFA, ZOSYN. FAMILY HISTORY: There is a family history of throat, thyroid cancer, heart disease, diabetes, colon cancer. PERSONAL AND SOCIAL HISTORY: Past tobacco abuse, no chronic intake of alcoholic beverages. 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 REVIEW OF SYSTEMS: As per HPI. All other ROS negative. PHYSICAL EXAMINATION: VITAL SIGNS: Blood pressure was noted to be 130/82, pulse rate 84, RR 22, temperature 37 sats 92% on room air. GENERAL: Noted to be comfortable, no respiratory distress. SKIN: Flushed, dry and warm. HEENT: [place] palpebral conjunctivae. Dry mucosa. NECK: Supple, nontender. CHEST: Decreased breath sounds. Occasional wheeze. No chest wall tenderness. ABDOMEN: Healed incisional scars, ostomy noted. No overt tenderness. CARDIOVASCULAR: Regular rate and rhythm. Palpable lower extremity pulses. EXTREMITIES: No edema. No tenderness NEUROLOGIC: No gross focality, coherent. LABORATORY AND IMAGING DATA: Hemoglobin was noted to be 13.9, hematocrit 40 white cell count 8.5, platelets 232. Sodium 138, potassium 3.9, chloride 105, CO2 24, BUN 20, creatinine 0.9, glucose was noted to be 90. UA, nitrite positive. CT results as above. ASSESSMENT: 1. Small-bowel obstruction, possibly ischemic bowel history of recurrent bowel obstruction sp surgery history of bladder cancer status post surgery. Hx gastrectomy in the past. 2. Aspiration pneumonia secondary to above known aspiration risk. px not septic 3. Coronary artery disease as per records. 4. Hypertension, stable not on maintenance medications. 5. Past tobacco abuse. 6. Steroid dependent rheumatoid arthritis 7. hx MRSA PLAN: GMF bowel rest, IV fluids. Ertapenem for aspiration pneumonia and ischemic bowel, Surgery consult. RE SBO, possible ischemic bowel Patient has already been seen by Dr. Cedeno in the Emergency Room,. She recommends NGT decompression if w further emesis. Hydrocortisone 20 mg IV BID (home prednisone equivalent) while patient strictly NPO to avert adrenal insufficiency Resume home prednisone once diet advanced. Ffup swallow eval once diet advanced. DVT prophylaxis Lovenox subQ Full code DNR. MTDD
[2017-02-26 06:08] LABS: HEMATOCRIT 39.9 % (42-52); MEAN CELL VOLUME 89.9 fL (80-100); MEAN CORPUSCULAR HEMOGLOBIN 28.6 pg (25-34); MEAN CORPUSCULAR HGB CONC 31.8 g/dl (32-36); MEAN PLATELET VOLUME 9.2 fL (7.4-10.4); PLATELET COUNT 204 K/uL (130-400); RED BLOOD COUNT 4.44 M/uL (4.7-6.1); WHITE BLOOD COUNT 8.01 K/uL (4.8-10.8)
[2017-02-26 06:16] LABS: PROTHROMBIN TIME (PATIENT) 10.6 SECONDS (9.0-12.0)
[2017-02-26 06:33] LABS: COMPLETE YES; IG% 0.4 %; LYMPH % 4.4 %; LYMPH ABS # 0.35 K/uL (1.2-3.4); NEUT % 93.2 %
[2017-02-26 06:46] LABS: BUN/CREATININE RATIO 32.3 (10-20); CREATININE 0.81 mg/dl (0.60-1.40); POTASSIUM 4.8 mmol/L (3.5-5.1)
[2017-02-26] MEDS: SODIUM CHLORIDE 0.45% 1000ML 1,000 ML IV SCH ×2 (08:38→21:39)
[2017-02-26] MEDS: BISACODYL 10 MG SUPP PR SCH (08:39)
--- NOTE | 2017-02-26 08:43 | Surgery Progress Note ---
Surgery Progress Note Date of Service Feb 26, 2017. Subjective Post OP Day: HD # 1 + feeling well, + bowel movement, + pain controlled, No complaints, No chest pain, No SOB, No nausea, No vomiting No further nausea Throat does not hurt just slightly sore, no difficulty swallowing +bowel movement, no abdominal pain Objective Vital Signs: Date Time Temp Pulse Resp B/P (MAP) Pulse Ox O2 Delivery O2 Flow Rate FiO2 02/26/17 07:03 37.3 79 17 131/82 (98) 95 Room Air 02/26/17 06:21 96 Room Air 02/26/17 06:15 100 Nasal Cannula 2.0 02/26/17 01:31 37.2 104 18 122/83 (96) 100 Nasal Cannula 4.0 02/26/17 01:15 Nasal Cannula 2.0 02/26/17 00:22 90 18 121/73 93 Nasal Cannula 2.0 02/25/17 21:59 75 22 104/77 93 Nasal Cannula 2.0 02/25/17 21:44 83 02/25/17 21:09 82 02/25/17 20:05 84 22 133/82 92 02/25/17 18:26 81 24 146/97 98 Room Air 02/25/17 17:05 72 18 174/93 100 Room Air 02/25/17 16:16 80 02/25/17 15:29 36.8 76 18 166/90 98 Room Air General Appearance: WD/WN, no apparent distress Head: normocephalic, atraumatic Neck: trachea midline Respiratory/Chest: no respiratory distress, no accessory muscle use Abdomen: non tender, non distended, soft, + pertinent finding (Ileal Conduit funcition, clear yellow output) Laboratory Results: Results Past 24 Hours Test 02/25/17 15:45 02/25/17 16:33 02/25/17 17:05 02/26/17 05:53 Range/Units White Blood Count 8.59 8.01 4.8-10.8 K/uL Red Blood Count 4.96 4.44 4.7-6.1 M/uL Hemoglobin 13.9 12.7 14.0-18.0 g/dL Hematocrit 44.3 39.9 42-52 % Mean Corpuscular Volume 89.3 89.9 80-100 fL Mean Corpuscular Hemoglobin 28.0 28.6 25-34 pg Mean Corpuscular Hemoglobin Concent 31.4 31.8 32-36 g/dl Platelet Count 232 204 130-400 K/uL Mean Platelet Volume 9.7 9.2 7.4-10.4 fL Neutrophils (%) (Auto) 78.4 93.2 % Lymphocytes (%) (Auto) 12.1 4.4 % Monocytes (%) (Auto) 6.4 2.0 % Eosinophils (%) (Auto) 1.6 0.0 % Basophils (%) (Auto) 0.2 0.0 % Neutrophils # (Auto) 6.73 7.47 1.4-6.5 K/uL Lymphocytes # (Auto) 1.04 0.35 1.2-3.4 K/uL Monocytes # (Auto) 0.55 0.16 0.11-0.59 K/uL Eosinophils # (Auto) 0.14 0.00 0-0.5 K/uL Basophils # (Auto) 0.02 0.00 0-0.2 K/uL RDW Standard Deviation 48.7 50.3 36.4-46.3 fL RDW Coefficient of Variation 15.0 15.1 11.5-14.5 % Immature Granulocyte % (Auto) 1.3 0.4 % Immature Granulocyte # (Auto) 0.11 0.03 0.00-0.02 K/uL Sodium Level 138 143 136-145 mmol/L Potassium Level 3.9 4.8 3.5-5.1 mmol/L Chloride Level 105 114 98-107 mmol/L Carbon Dioxide Level 24 23 21-32 mmol/L Anion Gap 9.0 6.0 3-11 mmol/L Blood Urea Nitrogen 29 26 7-18 mg/dl Creatinine 0.94 0.81 0.60-1.40 mg/dl Est Creatinine Clear Calc Drug Dose 62.6 72.6 ml/min Estimated GFR () 85.9 94.6 Estimated GFR (Non- 74.2 81.6 BUN/Creatinine Ratio 31.0 32.3 10-20 Random Glucose 90 120 70-99 mg/dl Calcium Level 9.0 8.0 8.5-10.1 mg/dl Magnesium Level 2.2 1.8-2.4 mg/dl Total Bilirubin 0.4 0.2-1 mg/dl Direct Bilirubin 0.1 0-0.2 mg/dl Aspartate Amino Transf (AST/SGOT) 21 15-37 U/L Alanine Aminotransferase (ALT/SGPT) 24 12-78 U/L Alkaline Phosphatase 68 45-117 U/L Troponin I < 0.015 0-0.045 ng/ml Total Protein 6.8 6.4-8.2 gm/dl Albumin 3.2 3.4-5.0 gm/dl Lipase 144 73-393 U/L Lactic Acid Level 0.9 0.4-2.0 mmol/L Urine Color DK YELLOW Urine Appearance CLOUDY CLEAR Urine pH 8.5 4.5-7.5 Urine Specific [place] 1.015 1.000-1.030 Urine Protein TRACE NEG Urine Glucose (UA) NEG NEG Urine Ketones NEG NEG Urine Occult Blood NEG NEG Urine Nitrite POS NEG Urine Bilirubin NEG NEG Urine Urobilinogen NEG NEG Urine Leukocyte Esterase MODERATE NEG Urine WBC (Auto) 10-30 0-5 /hpf Urine RBC (Auto) 0-4 0-4 /hpf Urine Hyaline Casts (Auto) 1-5 0-5 /lpf Urine Epithelial Cells (Auto) 0-5 0-5 /lpf Urine Bacteria (Auto) 2+ NEG Urine Crystals TRIPLE PHOSPHATE NONE PRSENT Prothrombin Time 10.6 9.0-12.0 SECONDS Prothromb Time International Ratio 1.0 0.9-1.1 Test 02/26/17 07:42 Range/Units Lactic Acid Level 1.1 0.4-2.0 mmol/L Microbiology Results 02/25/17 Blood Culture, Received Pending 02/25/17 Blood Culture, Received Pending 02/26/17 Gram Stain, Received Pending 02/26/17 Sputum Culture, Received Pending 02/25/17 Urine Culture - Final, Complete THREE TYPES OF ORGANISMS PRESENT, ALL... Assessment & Plan 86 year-old male who presented to emergency department last evening with complaint of difficulty swallowing, sensation of throat closing, and vomiting. CT scan concerning for partial small bowel obstruction and pneumatosis. Feeling much better today. No abdominal pain. Afebrile, no leukocytosis, and lactic acid normal at 1.1 this am. Abdominal examination benign and positive bowel function overnight. Plan: Swallow eval, if normal may advance diet to clear liquids, advised to back off if any nausea or vomiting Continue IV fluids and pain management as needed Continue IV antibiotics Continue current medical management will follow, Dr. Little to cover this weekend Dr. Lopez has seen and examined patient, agrees with above
[2017-02-26] MEDS: ENOXAPARIN 30 MG/0.3 ML SYR SQ SCH (09:30)
[2017-02-26] MEDS: HYDROCORTISONE IV 20 MG in SYRINGE 0 ML IV SCH ×2 (09:30→21:39)
--- NOTE | 2017-02-26 16:43 | Progress Note ---
Internal Med Progress Note Date of Service: Feb 26, 2017. Provider Documentation: SUBJECTIVE: resting comfortably since he had gastric surgery he had couple of stretching of oesophagus with help of speech therapy he was able to eat almost regular diet if he can chew it last night had nausea and vomiting and abdominal pain feeling fine now no nausea no abdominal pain moved bowels today morning OBJECTIVE: Vital Signs-as noted below Exam: General-alert and awake. not in distress ENT-normal hearing Neck-no neck masses supple Lungs-cta b/l no wheezing or crackles Heart-s1 and s2 heard regular rate and rhythm no murmurs Abdomen-soft bowel sounds present non tender no distension Extremities-no erythema no edema Neuro-alert and awake moves extremities Lab data as noted below. 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 Hx gastrectomy in the past. improving moved bowels today lactic acid normal surgery on board 2. Aspiration pneumonia secondary to above known aspiration risk. on invanz 3. Dysphagia had speech therapy in past\ npo until evaluated by speech. 4. Coronary artery disease as per records. . 5. Past tobacco abuse. 6. 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 7. hx MRSA DVT PROPHYLAXIS Lovenox DISPOSITION to be determined Vital Signs: Date Time Temp Pulse Resp B/P (MAP) Pulse Ox O2 Delivery O2 Flow Rate FiO2 02/26/17 15:55 36.7 67 18 142/87 (105) 97 Room Air 02/26/17 09:10 75 95 02/26/17 07:18 Room Air 02/26/17 07:03 37.3 79 17 131/82 (98) 95 Room Air 02/26/17 06:21 96 Room Air 02/26/17 06:15 100 Nasal Cannula 2.0 02/26/17 01:31 37.2 104 18 122/83 (96) 100 Nasal Cannula 4.0 02/26/17 01:15 Nasal Cannula 2.0 02/26/17 00:22 90 18 121/73 93 Nasal Cannula 2.0 02/25/17 21:59 75 22 104/77 93 Nasal Cannula 2.0 02/25/17 21:44 83 02/25/17 21:09 82 02/25/17 20:05 84 22 133/82 92 02/25/17 18:26 81 24 146/97 98 Room Air 02/25/17 17:05 72 18 174/93 100 Room Air Lab Results: Results Past 24 Hours Test 02/25/17 17:05 02/26/17 05:53 02/26/17 07:42 Range/Units Urine Color DK YELLOW Urine Appearance CLOUDY CLEAR Urine pH 8.5 4.5-7.5 Urine Specific [place] 1.015 1.000-1.030 Urine Protein TRACE NEG Urine Glucose (UA) NEG NEG Urine Ketones NEG NEG Urine Occult Blood NEG NEG Urine Nitrite POS NEG Urine Bilirubin NEG NEG Urine Urobilinogen NEG NEG Urine Leukocyte Esterase MODERATE NEG Urine WBC (Auto) 10-30 0-5 /hpf Urine RBC (Auto) 0-4 0-4 /hpf Urine Hyaline Casts (Auto) 1-5 0-5 /lpf Urine Epithelial Cells (Auto) 0-5 0-5 /lpf Urine Bacteria (Auto) 2+ NEG Urine Crystals TRIPLE PHOSPHATE NONE PRSENT White Blood Count 8.01 4.8-10.8 K/uL Red Blood Count 4.44 4.7-6.1 M/uL Hemoglobin 12.7 14.0-18.0 g/dL Hematocrit 39.9 42-52 % Mean Corpuscular Volume 89.9 80-100 fL Mean Corpuscular Hemoglobin 28.6 25-34 pg Mean Corpuscular Hemoglobin Concent 31.8 32-36 g/dl Platelet Count 204 130-400 K/uL Mean Platelet Volume 9.2 7.4-10.4 fL Neutrophils (%) (Auto) 93.2 % Lymphocytes (%) (Auto) 4.4 % Monocytes (%) (Auto) 2.0 % Eosinophils (%) (Auto) 0.0 % Basophils (%) (Auto) 0.0 % Neutrophils # (Auto) 7.47 1.4-6.5 K/uL Lymphocytes # (Auto) 0.35 1.2-3.4 K/uL Monocytes # (Auto) 0.16 0.11-0.59 K/uL Eosinophils # (Auto) 0.00 0-0.5 K/uL Basophils # (Auto) 0.00 0-0.2 K/uL RDW Standard Deviation 50.3 36.4-46.3 fL RDW Coefficient of Variation 15.1 11.5-14.5 % Immature Granulocyte % (Auto) 0.4 % Immature Granulocyte # (Auto) 0.03 0.00-0.02 K/uL Prothrombin Time 10.6 9.0-12.0 SECONDS Prothromb Time International Ratio 1.0 0.9-1.1 Sodium Level 143 136-145 mmol/L Potassium Level 4.8 3.5-5.1 mmol/L Chloride Level 114 98-107 mmol/L Carbon Dioxide Level 23 21-32 mmol/L Anion Gap 6.0 3-11 mmol/L Blood Urea Nitrogen 26 7-18 mg/dl Creatinine 0.81 0.60-1.40 mg/dl Est Creatinine Clear Calc Drug Dose 72.6 ml/min Estimated GFR () 94.6 Estimated GFR (Non- 81.6 BUN/Creatinine Ratio 32.3 10-20 Random Glucose 120 70-99 mg/dl Calcium Level 8.0 8.5-10.1 mg/dl Lactic Acid Level 1.1 0.4-2.0 mmol/L Microbiology Results 02/25/17 Blood Culture, Received Pending 02/25/17 Blood Culture, Received Pending 02/26/17 Gram Stain - Final, Resulted 02/26/17 Sputum Culture, Resulted Pending 02/25/17 Urine Culture - Final, Complete THREE TYPES OF ORGANISMS PRESENT, ALL...
[2017-02-27] MEDS: ERTAPENEM IV 1 GM in SODIUM CHLOR 0.9% AD-VAN 50ML IV SCH (02:19)
[2017-02-27 07:35] VITALS: BP 153/87; PULSE 55; TEMP 36.5; O2SAT 98
[2017-02-27] MEDS: BISACODYL 10 MG SUPP PR SCH (09:00)
[2017-02-27] MEDS: HYDROCORTISONE IV 20 MG in SYRINGE 0 ML IV SCH ×3 (09:00→20:56)
--- NOTE | 2017-02-27 10:20 | Surgery Progress Note ---
Surgery Progress Note Date of Service Feb 27, 2017. Subjective +BM feeling much better. no n/v. no pain Objective Vital Signs: Date Time Temp Pulse Resp B/P (MAP) Pulse Ox O2 Delivery O2 Flow Rate FiO2 02/27/17 07:35 36.5 55 16 153/87 (109) 98 Room Air 02/27/17 00:15 Room Air 02/26/17 23:06 36.4 62 18 135/76 (95) 98 Room Air 02/26/17 16:10 Room Air 02/26/17 15:55 36.7 67 18 142/87 (105) 97 Room Air General Appearance: no apparent distress Head: normocephalic, atraumatic Neck: supple Respiratory/Chest: no respiratory distress, no accessory muscle use Abdomen: non tender, non distended, soft, + pertinent finding (ilioconduit functioning. ) Assessment & Plan 02/27/17 SBO clinically seems to have resolved ok to advance diet and d/c when tolerating pt requesting not to have swallowing test done. will continue to follow with you.
[2017-02-27] MEDS: ENOXAPARIN 30 MG/0.3 ML SYR SQ SCH (10:52)
[2017-02-27] MEDS: SODIUM CHLORIDE 0.45% 1000ML 1,000 ML IV SCH (12:17)
[2017-02-27 15:35] VITALS: BP 149/82; PULSE 58; TEMP 36.6; O2SAT 99
--- NOTE | 2017-02-27 18:13 | Progress Note ---
Internal Med Progress Note Date of Service: Feb 27, 2017. Provider Documentation: SUBJECTIVE: resting comfortably had a small amount of bowel movement today afebrile no nausea or sob will decide about swallow evaluation tomorrow OBJECTIVE: Vital Signs-as noted below Exam: General-alert and awake. not in distress ENT-normal hearing Neck-no neck masses supple Lungs-cta b/l no wheezing or crackles Heart-s1 and s2 heard regular rate and rhythm no murmurs Abdomen-soft bowel sounds present non tender no distension Extremities-no erythema no edema Neuro-alert and awake moves extremities Lab data as noted below. 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 Hx gastrectomy in the past. improving moved bowels today lactic acid normal surgery on board resolved 2. Aspiration pneumonia secondary to above known aspiration risk. on invanz 3. Dysphagia had speech therapy in past\ npo until evaluated by speech. patient to decide about video swallow evaluation tomorrow after again discussing with speech in presence of his 4. Coronary artery disease as per records. . 5. Past tobacco abuse. 6. 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 7. hx MRSA DVT PROPHYLAXIS Lovenox DISPOSITION to be determined Vital Signs: Date Time Temp Pulse Resp B/P (MAP) Pulse Ox O2 Delivery O2 Flow Rate FiO2 02/27/17 15:35 36.6 58 18 149/82 (104) 99 Room Air 02/27/17 07:57 Room Air 02/27/17 07:35 36.5 55 16 153/87 (109) 98 Room Air 02/27/17 00:15 Room Air 02/26/17 23:06 36.4 62 18 135/76 (95) 98 Room Air
[2017-02-27] MEDS: D5W AND NSS 1,000 ML IV SCH (20:56)
[2017-02-27 23:10] VITALS: BP 131/71; PULSE 57; TEMP 36.4; O2SAT 97
[2017-02-28] MEDS: ERTAPENEM IV 1 GM in SODIUM CHLOR 0.9% AD-VAN 50ML IV SCH (01:40)
[2017-02-28] MEDS: D5W AND NSS 1,000 ML IV SCH ×2 (05:05→14:54)
[2017-02-28 06:58] VITALS: BP 156/81; PULSE 51; TEMP 36.6; O2SAT 99
[2017-02-28] MEDS: BISACODYL 10 MG SUPP PR SCH (09:00)
[2017-02-28] MEDS: ENOXAPARIN 30 MG/0.3 ML SYR SQ SCH (09:02)
[2017-02-28] MEDS: HYDROCORTISONE IV 20 MG in SYRINGE 0 ML IV SCH ×2 (09:02→20:21)
--- NOTE | 2017-02-28 11:08 | Surgery Progress Note ---
Surgery Progress Note Date of Service Feb 28, 2017. Subjective + feeling well no pain or nausea. +BM yesterday Objective Vital Signs: Date Time Temp Pulse Resp B/P (MAP) Pulse Ox O2 Delivery O2 Flow Rate FiO2 02/28/17 07:15 Room Air 02/28/17 06:58 36.6 51 18 156/81 (106) 99 Room Air 02/27/17 23:34 Room Air 02/27/17 23:10 36.4 57 18 131/71 (91) 97 Room Air 02/27/17 15:40 Room Air 02/27/17 15:35 36.6 58 18 149/82 (104) 99 Room Air General Appearance: no apparent distress Head: normocephalic, atraumatic Neck: no JVD Respiratory/Chest: no respiratory distress, no accessory muscle use Abdomen: non tender, non distended, soft Assessment & Plan 02/28/17 continues to do well clinically awaiting swallowing test which pt has now agreed to after that can advance diet/discharge planning. no surgical plans 02/27/17 SBO clinically seems to have resolved ok to advance diet and d/c when tolerating pt requesting not to have swallowing test done. will continue to follow with you. 02/27/17 SBO clinically seems to have resolved ok to advance diet and d/c when tolerating pt requesting not to have swallowing test done. will continue to follow with you.
[2017-02-28 15:30] VITALS: BP 150/79; PULSE 74; TEMP 36.5; O2SAT 98
--- NOTE | 2017-02-28 17:59 | Progress Note ---
Internal Med Progress Note Date of Service: Feb 28, 2017. Provider Documentation: SUBJECTIVE: resting comfortably tolerating clears no cough or sob afebrile ok for video swallow test in am OBJECTIVE: Vital Signs-as noted below Exam: General-alert and awake. not in distress ENT-normal hearing Neck-no neck masses supple Lungs-cta b/l no wheezing or crackles Heart-s1 and s2 heard regular rate and rhythm no murmurs Abdomen-soft bowel sounds present non tender no distension Extremities-no erythema no edema Neuro-alert and awake moves extremities Lab data as noted below. 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 Hx gastrectomy in the past. lactic acid normal surgery on board resolved tolerating clears 2. Aspiration pneumonia secondary to above known aspiration risk. on Invanz 3. Dysphagia had speech therapy in past\ npo until evaluated by speech. tolerating clears plan for video swallow in am 4. Coronary artery disease as per records. . 5. Past tobacco abuse. 6. 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 7. hx MRSA DVT PROPHYLAXIS Lovenox DISPOSITION to be determined pt/ot Vital Signs: Date Time Temp Pulse Resp B/P (MAP) Pulse Ox O2 Delivery O2 Flow Rate FiO2 02/28/17 15:30 36.5 74 20 150/79 (102) 98 Room Air 02/28/17 07:15 Room Air 02/28/17 06:58 36.6 51 18 156/81 (106) 99 Room Air 02/27/17 23:34 Room Air 02/27/17 23:10 36.4 57 18 131/71 (91) 97 Room Air
[2017-02-28 23:30] VITALS: BP 148/85; PULSE 61; TEMP 36.7; O2SAT 96
[2017-03-01] MEDS: D5W AND NSS 1,000 ML IV SCH ×2 (00:23→11:06)
[2017-03-01] MEDS ORDERED: SODIUM CHLOR 0.9% IV SCH (02:00)
[2017-03-01] MEDS ORDERED: ERTAPENEM IV SCH (02:00)
[2017-03-01] MEDS ORDERED: AD VAN IV SCH (02:00)
[2017-03-01 07:13] VITALS: BP 163/94; PULSE 58; TEMP 36.9; O2SAT 97
[2017-03-01 07:31] LABS: BASO % 0.2 %; BASO ABS # 0.01 K/uL (0-0.2); COMPLETE YES; EOS % 3.2 %; HEMATOCRIT 38.1 % (42-52); IG% 1.1 %; LYMPH % 22.6 %; LYMPH ABS # 1.07 K/uL (1.2-3.4); MEAN CELL VOLUME 88.8 fL (80-100); MEAN CORPUSCULAR HEMOGLOBIN 28.4 pg (25-34); MEAN PLATELET VOLUME 9.3 fL (7.4-10.4); MONO % 8.4 %; NEUT % 64.5 %; PLATELET COUNT 208 K/uL (130-400); RED BLOOD COUNT 4.29 M/uL (4.7-6.1); WHITE BLOOD COUNT 4.74 K/uL (4.8-10.8)
[2017-03-01 07:57] LABS: BUN/CREATININE RATIO 12.7 (10-20); CREATININE 0.59 mg/dl (0.60-1.40); MAGNESIUM 1.9 mg/dl (1.8-2.4); POTASSIUM 3.3 mmol/L (3.5-5.1)
[2017-03-01] MEDS: BISACODYL 10 MG SUPP PR SCH (08:44)
[2017-03-01] MEDS: ENOXAPARIN 30 MG/0.3 ML SYR SQ SCH (08:44)
[2017-03-01] MEDS: HYDROCORTISONE IV 20 MG in SYRINGE 0 ML IV SCH (08:50)
--- NOTE | 2017-03-01 12:37 | DIAGNOSTIC IMAGING REPORT ---
VIDEO SWALLOW CLINICAL HISTORY: 86 years-old Male presenting with assess for aspiration, please schedule per order, dysphasia, history of GI bleed. TECHNIQUE: Video fluoroscopic evaluation of swallowing was performed in the AP and lateral projections in conjunction with speech pathology. The patient was administered various textures, including nectar-thick and thin liquid barium, a barium coated wafer, and barium pudding. COMPARISON: 10/12/2011. FINDINGS: There is delayed swallow reflex. Silent aspiration observed with thin liquids and nectar thick liquids. Intraesophageal reflux and residual in the valleculae and piriform sinuses noted. Administration of pudding consistency also demonstrated deep penetration/aspiration to the level of the vocal folds. No aspiration observed with administration of solids. Tertiary contractions also demonstrated. Fluoroscopy dosage (mGy): Not available. Fluoroscopy time: 2.8 minutes. Number of fluoroscopic spot images: 0. IMPRESSION: 1. Silent aspiration with thin liquids, nectar thick liquids, and pudding. No aspiration of solids. 2. 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 3. Please see the speech pathologist report for detailed findings and recommendations. Electronically signed by: Ken Baker M.D. 03/01/2017 12:36 PM Dictated Date/Time: 03/01/2017 12:32 PM
--- NOTE | 2017-03-01 14:04 | Surgery Progress Note ---
Surgery Progress Note Date of Service Mar 01, 2017. Subjective Post OP Day: HD # 4 + feeling well, + bowel movement, + flatus, + diet (tolerating clear liquids), No complaints, No chest pain, No SOB, No nausea, No vomiting Objective Vital Signs: Date Time Temp Pulse Resp B/P (MAP) Pulse Ox O2 Delivery O2 Flow Rate FiO2 03/01/17 07:15 Room Air 03/01/17 07:13 36.9 58 19 163/94 (117) 97 Room Air 02/28/17 23:30 36.7 61 16 148/85 (106) 96 Room Air 02/28/17 20:56 Room Air 02/28/17 15:30 36.5 74 20 150/79 (102) 98 Room Air General Appearance: WD/WN, no apparent distress Head: normocephalic, atraumatic Neck: trachea midline Respiratory/Chest: no respiratory distress, no accessory muscle use Abdomen: normal bowel sounds, non tender, non distended, soft, no organomegaly , no pulsatile mass, + pertinent finding (urostomy bag present) Laboratory Results: Results Past 24 Hours Test 03/01/17 07:04 Range/Units White Blood Count 4.74 4.8-10.8 K/uL Red Blood Count 4.29 4.7-6.1 M/uL Hemoglobin 12.2 14.0-18.0 g/dL Hematocrit 38.1 42-52 % Mean Corpuscular Volume 88.8 80-100 fL Mean Corpuscular Hemoglobin 28.4 25-34 pg Mean Corpuscular Hemoglobin Concent 32.0 32-36 g/dl Platelet Count 208 130-400 K/uL Mean Platelet Volume 9.3 7.4-10.4 fL Neutrophils (%) (Auto) 64.5 % Lymphocytes (%) (Auto) 22.6 % Monocytes (%) (Auto) 8.4 % Eosinophils (%) (Auto) 3.2 % Basophils (%) (Auto) 0.2 % Neutrophils # (Auto) 3.06 1.4-6.5 K/uL Lymphocytes # (Auto) 1.07 1.2-3.4 K/uL Monocytes # (Auto) 0.40 0.11-0.59 K/uL Eosinophils # (Auto) 0.15 0-0.5 K/uL Basophils # (Auto) 0.01 0-0.2 K/uL RDW Standard Deviation 48.1 36.4-46.3 fL RDW Coefficient of Variation 14.8 11.5-14.5 % Immature Granulocyte % (Auto) 1.1 % Immature Granulocyte # (Auto) 0.05 0.00-0.02 K/uL Sodium Level 145 136-145 mmol/L Potassium Level 3.3 3.5-5.1 mmol/L Chloride Level 114 98-107 mmol/L Carbon Dioxide Level 20 21-32 mmol/L Anion Gap 11.0 3-11 mmol/L Blood Urea Nitrogen 8 7-18 mg/dl Creatinine 0.59 0.60-1.40 mg/dl Est Creatinine Clear Calc Drug Dose 99.7 ml/min Estimated GFR () 107.8 Estimated GFR (Non- 93.0 BUN/Creatinine Ratio 12.7 10-20 Random Glucose 100 70-99 mg/dl Calcium Level 8.0 8.5-10.1 mg/dl Magnesium Level 1.9 1.8-2.4 mg/dl Assessment & Plan 86 year-old male who presented to emergency department om 02/25/2017 with complaint of difficulty swallowing, sensation of throat closing, and vomiting. CT scan concerning for partial small bowel obstruction and pneumatosis. Today feeling well, tolerating clears, slight leukocytosis but stable, afebrile. No abdominal pain, abdomen soft and nontender, + bowel sounds. Plan: From surgical standpoint, small bowel obstruction has resolved, no surgical intervention required May advance diet as tolerated and when appropriate given swallow test results. Continue medical management Surgical services signing off, please call with questions or concerns Discussed with Dr. Lopez who agrees with above.
[2017-03-01] MEDS ORDERED: POTASSIUM CHLORIDE 10 MEQ TABCR PO STA (14:24)
[2017-03-01 15:23] VITALS: BP 143/87; PULSE 64; TEMP 36.8; O2SAT 98
--- NOTE | 2017-03-01 16:57 | Discharge Instructions ---
Discharge Instructions Date of Service Mar 01, 2017. Admission Reason for Admission: SBO Discharge Discharge Diagnosis / Problem: SBO, aspiration? Discharge Goals Goal(s): Decrease discomfort, Improve function Activity Recommendations Activity Limitations: resume your previous activity . Instructions / Follow-Up Instructions / Follow-Up FOLLOWUP WITH FAMILY DOCTOR Bret Bonilla ON Feb AT 11:05AM. OUT PATIENT SPEECH THERAPY PER FAMILY DOCTOR REFERRAL. SPEECH THERAPY RECOMMENDATIONS: Speech Therapy Discharge Instructions * 1. Advance diet as tolerated to slippery mechanical soft. Avoid foods that are dry, thick, pasty, doughy. Use condiments such as butter/gravy/sauce to assist in making foods moist. 2. STRICT Aspiration and GERD precautions, NO straws. Fully upright for meals and for 30 minutes after meals are complete. Head of bed should be elevated to at least 30 degrees at all times, to include while asleep. 3. Safe swallow strategies: Chin tuck (hold chin to chest with food/liquid bolus in mouth, swallow with chin down) with Double swallow with each bite/sip. 4. Stringent oral care, to include brushing all surfaces of the mouth and tongue prior to and after meals, as well as before bed. This will reduce oral bacteria that can be aspirated in saliva. 5. Would benefit from outpatient speech therapy with focus on general pharyngeal strengthening exercises and further education/carryover of diet and safe swallow strategies. FOLLOWUP WITH ENT FOR MILD LARYNGEAL EDEMA Current Hospital Diet Patient's current hospital diet: AHA Diet (Heart Healthy), Regular Diet Discharge Diet Recommended Diet: AHA Diet (Heart Healthy) Diet Texture: Mechanical Soft (ground) Pending Studies Studies pending at discharge: no Medical Emergencies . Who to Call and When: Medical Emergencies: If at any time you feel your situation is an emergency, please call 911 immediately. . Non-Emergent Contact Non-Emergency issues call your: Primary Care Provider . . "Provider Documentation" section prepared by James Pedroza. . VTE Core Measure Inpt VTE Proph given/why not?: Enoxaparin (Lovenox)SQ
[2017-03-01 17:45] VITALS: BP 143/87; PULSE 64; TEMP 36.8; O2SAT 98
--- NOTE | 2017-03-01 19:07 | Progress Note ---
Internal Med Progress Note Date of Service: Mar 01, 2017. Provider Documentation: SUBJECTIVE: resting comfortably tolerated soft diet no cough or sob afebrile s/p video swallow today ok for discharge OBJECTIVE: Vital Signs-as noted below Exam: General-alert and awake. not in distress ENT-normal hearing Neck-no neck masses supple Lungs-cta b/l no wheezing or crackles Heart-s1 and s2 heard regular rate and rhythm no murmurs Abdomen-soft bowel sounds present non tender no distension Extremities-no erythema no edema Neuro-alert and awake moves extremities Lab data as noted below. 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 Hx gastrectomy in the past. lactic acid normal surgery on board resolved tolerating soft diet 2. Aspiration pneumonia secondary to above known aspiration risk. on Invanz cxr no infiltrates stable 3. Dysphagia had speech therapy in past\ npo until evaluated by speech. tolerating clears s/p video swallow and showed intermittent aspiration. patient want to be on mechanical soft diet out patient speech therapy. Speech therapy recommendations: Speech Therapy Discharge Instructions * 1. Advance diet as tolerated to slippery mechanical soft. Avoid foods that are dry, thick, pasty, doughy. Use condiments such as butter/gravy/sauce to assist in making foods moist. 2. STRICT Aspiration and GERD precautions, NO straws. Fully upright for meals and for 30 minutes after meals are complete. Head of bed should be elevated to at least 30 degrees at all times, to include while asleep. 3. Safe swallow strategies: Chin tuck (hold chin to chest with food/liquid bolus in mouth, swallow with chin down) with Double swallow with each bite/sip. 4. Stringent oral care, to include brushing all surfaces of the mouth and tongue prior to and after meals, as well as before bed. This will reduce oral bacteria that can be aspirated in saliva. 5. Would benefit from outpatient speech therapy with focus on general pharyngeal strengthening exercises and further education/carryover of diet and safe swallow strategies. 4. Coronary artery disease as per records. . 5. Past tobacco abuse. 6. 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 7. hx MRSA Discharged home Vital Signs: Date Time Temp Pulse Resp B/P (MAP) Pulse Ox O2 Delivery O2 Flow Rate FiO2 03/01/17 17:45 36.8 64 18 98 Room Air 10/2/17 15:45 Room Air 03/01/17 15:23 36.8 64 18 143/87 (105) 98 Room Air 03/01/17 07:15 Room Air 03/01/17 07:13 36.9 58 19 163/94 (117) 97 Room Air 02/28/17 23:30 36.7 61 16 148/85 (106) 96 Room Air 02/28/17 20:56 Room Air Lab Results: Results Past 24 Hours Test 03/01/17 07:04 Range/Units White Blood Count 4.74 4.8-10.8 K/uL Red Blood Count 4.29 4.7-6.1 M/uL Hemoglobin 12.2 14.0-18.0 g/dL Hematocrit 38.1 42-52 % Mean Corpuscular Volume 88.8 80-100 fL Mean Corpuscular Hemoglobin 28.4 25-34 pg Mean Corpuscular Hemoglobin Concent 32.0 32-36 g/dl Platelet Count 208 130-400 K/uL Mean Platelet Volume 9.3 7.4-10.4 fL Neutrophils (%) (Auto) 64.5 % Lymphocytes (%) (Auto) 22.6 % Monocytes (%) (Auto) 8.4 % Eosinophils (%) (Auto) 3.2 % Basophils (%) (Auto) 0.2 % Neutrophils # (Auto) 3.06 1.4-6.5 K/uL Lymphocytes # (Auto) 1.07 1.2-3.4 K/uL Monocytes # (Auto) 0.40 0.11-0.59 K/uL Eosinophils # (Auto) 0.15 0-0.5 K/uL Basophils # (Auto) 0.01 0-0.2 K/uL RDW Standard Deviation 48.1 36.4-46.3 fL RDW Coefficient of Variation 14.8 11.5-14.5 % Immature Granulocyte % (Auto) 1.1 % Immature Granulocyte # (Auto) 0.05 0.00-0.02 K/uL Sodium Level 145 136-145 mmol/L Potassium Level 3.3 3.5-5.1 mmol/L Chloride Level 114 98-107 mmol/L Carbon Dioxide Level 20 21-32 mmol/L Anion Gap 11.0 3-11 mmol/L Blood Urea Nitrogen 8 7-18 mg/dl Creatinine 0.59 0.60-1.40 mg/dl Est Creatinine Clear Calc Drug Dose 99.7 ml/min Estimated GFR () 107.8 Estimated GFR (Non- 93.0 BUN/Creatinine Ratio 12.7 10-20 Random Glucose 100 70-99 mg/dl Calcium Level 8.0 8.5-10.1 mg/dl Magnesium Level 1.9 1.8-2.4 mg/dl
--- NOTE | 2017-03-01 19:35 | Discharge Summary ---
Discharge Summary Date of Service Mar 01, 2017. Discharge Summary Admission Date: Feb 25, 2017 at 23:37 Discharge Date: Mar 01, 2017 Discharge Disposition: Home Principal Diagnosis: SBO ASPIRATION? Secondary Diagnoses/Problems: CAD, hypertension as per records, skin cancer status post surgery, bladder cancer status post surgery, rheumatoid arthritis on chronic steroid therapy, past tobacco abuse, aspiration risk, bowel obstruction sp surgery. History of MRSA Procedures: CT SOFT TISSUE NECK: 1. Mild/moderate laryngeal general edema. 2. No evidence for significant airway compromise. 3. No significant adenopathy, mass, or collection. CT CHEST: 1. Mild laryngeal and esophageal submucosal edema. This is nonspecific but could be due to posttreatment changes. Clinical correlation recommended. 2. Bilateral infrahilar groundglass densities which could be due to mild inflammatory/infectious change or post radiation changes. 3. A few groundglass nodular/tree-in-bud densities seen within the lower lobes. This favors a a mild infectious bronchiolitis. 4. Cluster of calcifications/densities within the right middle lobe and left lower lobe. This may represent prior aspiration of barium. 5. A single prominent left axillary lymph node. CT ABD/PELVIS: 1. Multiple distended gas and fluid-filled loops of small bowel seen throughout the abdomen. Possible transition point within the ileum within the right lower quadrant as described above. Therefore, this likely represents a small bowel obstruction. In addition, there are few small bowel loops within the right mid abdomen which demonstrate pneumatosis. This raises the possibility of ischemic bowel. Clinical correlation recommended. VIDEO SWALLOW: 1. Silent aspiration with thin liquids, nectar thick liquids, and pudding. No aspiration of solids. 2. 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 Consultations: GENERAL SURGERY Medication Reconciliation Continued Medications: Enteral Nutrition Formula (Ensure) Liq 1 DOSE PO TID Fluticasone Propionate (Nasal) (Flonase Allergy Relief) 50 Mcg/Act Spr 2 SPRAYS BRITTNEY DAILY PRN for Nasal Congestion Hydroxychloroquine Sulfate (Plaquenil) 200 Mg Tab 400 MG PO QPM, TAB Multiple Vitamin (Multivitamin) 1 Tab Tab 1 TAB PO QAM, TAB Prednisone (Prednisone) 5 Mg Tab 5 MG PO BID, TAB Senna (Senokot) 8.6 Mg Tab 1 TAB PO BID Admission Information HPI (per Admitting provider): History obtained from patient and records. Medical history significant for CAD, hypertension as per records, skin cancer status post surgery, bladder cancer status post surgery, rheumatoid arthritis on chronic steroid therapy, past tobacco abuse, aspiration risk, bowel obstruction sp surgery. History of MRSA Recent confinement last 2012 for dehydration. Yesterday, patient noted trouble swallowing, subsequent emesis, not much abdominal pain, good bowel movement, worsening of usual cough symptoms, productive of creamy yellow sputum after emesis. Patient brought to the Emergency Room. CT of the soft tissue neck showed moderate laryngeal edema. CT of the abdomen and pelvis showed multiple distended gas filled bowel loops with possible transition point, ileal right lower quadrant, possible small-bowel obstruction, possible ischemic colitis. CT chest showed bilateral ground-glass densities, infection versus post-radiation change. Patient given IV Vancomycin and Zosyn in the Emergency Room. Patient developed erythema after Zosyn infusion. Subsequently given Decadron. Patient currently feeling better. Physical Exam (per Admitting): VITAL SIGNS: Blood pressure was noted to be 130/82, pulse rate 84, RR 22, temperature 37 sats 92% on room air. GENERAL: Noted to be comfortable, no respiratory distress. SKIN: Flushed, dry and warm. HEENT: [place] palpebral conjunctivae. Dry mucosa. NECK: Supple, nontender. CHEST: Decreased breath sounds. Occasional wheeze. No chest wall tenderness. ABDOMEN: Healed incisional scars, ostomy noted. No overt tenderness. CARDIOVASCULAR: Regular rate and rhythm. Palpable lower extremity pulses. EXTREMITIES: No edema. No tenderness NEUROLOGIC: No gross focality, coherent Hospital Course 1.Partial Small-bowel obstruction, history of recurrent bowel obstruction sp surgery history of bladder cancer status post surgery. Hx gastrectomy in the past. question of ischemic bowel on ct scan .lactic acid normal surgery on board asymptomatic .resolved tolerating soft diet 2. Aspiration pneumonia secondary to above known aspiration risk. on Invanz cxr no infiltrates stable 3. Dysphagia had speech therapy in past\\ npo until evaluated by speech. tolerating clears s/p video swallow and showed intermittent aspiration. patient want to be on mechanical soft diet out patient speech therapy. Speech therapy recommendations: Speech Therapy Discharge Instructions * 1. Advance diet as tolerated to slippery mechanical soft. Avoid foods that are dry, thick, pasty, doughy. Use condiments such as butter/gravy/sauce to assist in making foods moist. 2. STRICT Aspiration and GERD precautions, NO straws. Fully upright for meals and for 30 minutes after meals are complete. Head of bed should be elevated to at least 30 degrees at all times, to include while asleep. 3. Safe swallow strategies: Chin tuck (hold chin to chest with food/liquid bolus in mouth, swallow with chin down) with Double swallow with each bite/sip. 4. Stringent oral care, to include brushing all surfaces of the mouth and tongue prior to and after meals, as well as before bed. This will reduce oral bacteria that can be aspirated in saliva. 5. Would benefit from outpatient speech therapy with focus on general pharyngeal strengthening exercises and further education/carryover of diet and safe swallow strategies. 4. Mild laryngeal edema f/u with ENT.received iv steroids. 5. Coronary artery disease as per records. . 6. Past tobacco abuse. 7. 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 8. hx MRSA Discharged home Total time spent on discharge = 35MINUTES This includes examination of the patient, discharge planning, medication reconciliation, and communication with other providers. Discharge Instructions Please take this sheet to every appointment for the next month Discharge Instructions Date of Service Mar 01, 2017. Admission Reason for Admission: SBO Discharge Discharge Diagnosis / Problem: SBO, aspiration? Discharge Goals Goal(s): Decrease discomfort, Improve function Activity Recommendations Activity Limitations: resume your previous activity . Instructions / Follow-Up Instructions / Follow-Up FOLLOWUP WITH FAMILY DOCTOR Bret Bonilla ON Feb AT 11:05AM. OUT PATIENT SPEECH THERAPY PER FAMILY DOCTOR REFERRAL. SPEECH THERAPY RECOMMENDATIONS: Speech Therapy Discharge Instructions * 1. Advance diet as tolerated to slippery mechanical soft. Avoid foods that are dry, thick, pasty, doughy. Use condiments such as butter/gravy/sauce to assist in making foods moist. 2. STRICT Aspiration and GERD precautions, NO straws. Fully upright for meals and for 30 minutes after meals are complete. Head of bed should be elevated to at least 30 degrees at all times, to include while asleep. 3. Safe swallow strategies: Chin tuck (hold chin to chest with food/liquid bolus in mouth, swallow with chin down) with Double swallow with each bite/sip. 4. Stringent oral care, to include brushing all surfaces of the mouth and tongue prior to and after meals, as well as before bed. This will reduce oral bacteria that can be aspirated in saliva. 5. Would benefit from outpatient speech therapy with focus on general pharyngeal strengthening exercises and further education/carryover of diet and safe swallow strategies. Current Hospital Diet Patient's current hospital diet: AHA Diet (Heart Healthy), Regular Diet Discharge Diet Recommended Diet: AHA Diet (Heart Healthy) Diet Texture: Mechanical Soft (ground) Pending Studies Studies pending at discharge: no Medical Emergencies . Who to Call and When: Medical Emergencies: If at any time you feel your situation is an emergency, please call 911 immediately. . Non-Emergent Contact Non-Emergency issues call your: Primary Care Provider . . "Provider Documentation" section prepared by James Pedroza. . VTE Core Measure Inpt VTE Proph given/why not?: Enoxaparin (Lovenox)SQ
== END 2017-03-01 18:00 | disposition home or self-care (01) | DRG 388 ==
LOC: EDBD 15:06 → C.EDC 15:08 → C.MSW 23:37 → ENRESERV 23:58
PROVIDERS: ADMIT Internal Medicine; ATTEND Internal Medicine
DX: K56.600 Partial intestinal obstruction, unspecified as to cause (principal); J69.0 Pneumonitis due to inhalation of food and vomit; I10 Essential (primary) hypertension; N40.0 Benign prostatic hyperplasia without lower urinary tract symptoms; E78.5 Hyperlipidemia, unspecified; K21.9 Gastro-esophageal reflux disease without esophagitis; Z88.2 Allergy status to sulfonamides; J38.4 Edema of larynx; R13.10 Dysphagia, unspecified; I25.10 Atherosclerotic heart disease of native coronary artery without angina pectoris; M06.9 Rheumatoid arthritis, unspecified; Z79.52 Long term (current) use of systemic steroids; Z86.14 Personal history of Methicillin resistant Staphylococcus aureus infection; Z86.51 Personal history of combat and operational stress reaction; Z90.3 Acquired absence of stomach [part of]

== ENCOUNTER 2017-04-05 20:22 | Observation (INO) | payer OTHER ==
[~2017-04-05] VITALS: Ht 185.4 cm; Wt 73.8 kg
[~2017-04-05 20:22] MED LIST changes: -FOLI1TAB7 PO; -METH2.5T PO; +PRED-301 PO; -PRED1SUS OPL
--- NOTE | 2017-04-05 21:03 | EMERGENCY ROOM VISIT NOTE ---
History Report prepared by Michele: Mallory Mckeon Under the Supervision of: Dr. Flavio Rain M.D. First contact with patient: 20:49 Chief Complaint: FEVER Stated Complaint: TEMP 102 COUGH,NOISE IN LUNGS History of Present Illness The patient is a 86 year old male who presents to the Emergency Room with complaints of a constant fever beginning today. The patient states that he developed a cough this morning and a fever of 102. He reports that he has a history of difficulty swallowing, fluid around the lungs, and aspiration. He denies any leg swelling, chest pain, syncope, changes in eating habits, and recent antibiotics. The patient notes that he has been having some headaches. Per review of the patient's history, the patient had a CT 1 month ago that showed a small bowel obstruction vs. ileus. He had evidence of aspiration with thin liquids. Source of History: patient Onset: today Position: other (global) Symptom Intensity: 102 Quality: other (fever) Timing: constant Associated Symptoms: + headache, + cough, No LOC, No chest pain Note: Denies any leg swelling. Review of Systems See HPI for pertinent positives & negatives. A total of 10 systems reviewed and were otherwise negative. Past Medical & Surgical Medical Problems: (1) Benign hypertension (2) Benign prostatic hyperplasia (3) Bladder cancer (4) Chronic ischemic heart disease (5) Gastroesophageal reflux disease (6) History of polyp of colon (7) Hyperlipidemia (8) Hypotension (9) s/p colonoscopy with polypectomy (10) s/p hemorrhoidectomy (11) s/p hernia repair (12) s/p lap cholecystectomy (13) s/p tonsillectomy (14) SBO (small bowel obstruction) Family History No pertinent family history stated. Social History Smoking Status: Never Smoker Alcohol Use: none Marital Status: Housing Status: lives with family Occupation Status: retired Current/Historical Medications Scheduled Enteral Nutrition Formula (Ensure), 1 DOSE PO TID Hydroxychloroquine Sulfate (Plaquenil), 400 MG PO QPM Magnesium Oxide (Magnesium), 500 MG PO QAM [place]-3 Fatty Acids (Fish Oil), 1,000 MG PO DAILY Prednisone (Prednisone), 5 MG PO BID Senna (Senokot), 1 TAB PO BID Scheduled PRN Fluticasone Propionate (Nasal) (Flonase Allergy Relief), 2 SPRAYS BRITTNEY DAILY PRN for Nasal Congestion Allergies Coded Allergies: Piperacillin (Verified Allergy, Severe, SHORTNESS OF BREATH, 04/05/17) Tazobactam (Verified Allergy, Severe, SHORTNESS OF BREATH, 04/05/17) Sulfa Antibiotics (Verified Allergy, Unknown, SWELLING, 04/05/17) Propoxyphene (Verified Adverse Reaction, Unknown, BLOOD PRESSURE DROPS, ) Physical Exam Vital Signs Date Time Temp Pulse Resp B/P (MAP) Pulse Ox O2 Delivery O2 Flow Rate FiO2 04/05/17 23:12 37.0 80 20 126/76 93 Room Air 04/05/17 20:46 37.5 100 20 138/84 92 Room Air Physical Exam GENERAL: Patient is ill appearing and in mild distress. HEENT: No acute trauma, normocephalic atraumatic, mucous membranes moist, no nasal congestion, no scleral icterus. NECK: No stridor, no adenopathy, no meningismus, trachea is midline. LUNGS: Diffuse crackles through the right lung field, mild crackles through the left. The patient is hypoxic at 89% on room air. HEART: Regular rate and rhythm. No murmurs, rubs, gallops appreciated. ABDOMEN: Soft, nontender, bowel sounds positive, no masses appreciated, no peritonitis. BACK: No midline tenderness, no CVA tenderness EXTREMITIES: Normal motion all extremities, no cyanosis, no edema. NEUROLOGIC: Alert and oriented, no acute motor or sensory deficits, no focal weakness, cranial nerves grossly intact. SKIN: No rash, no jaundice, no diaphoresis. Medical Decision & Procedures ER Provider Diagnostic Interpretation: X ray results are stated below per my interpretation and the radiologist's interpretation. CHEST ONE VIEW PORTABLE FINDINGS: Chronic changes at both lung bases including radiopaque densities at the mid and medial left base as well as right infrahilar region. As described previously this may be secondary to a prior episode of barium aspiration. Chronic atelectatic changes bilaterally considered chronic. No focal infiltrate. No acute infiltrate. IMPRESSION: Chronic change. No acute process. The above report was generated using voice recognition software. It may contain grammatical, syntax or spelling errors. Electronically signed by: Shahbaz Chandra M.D. 04/05/2017 9:43 PM Dictated Date/Time: 04/05/2017 9:41 PM Laboratory Results 04/05/17 21:12 Red Blood Count 4.58, Mean Corpuscular Volume 91.9, Mean Corpuscular Hemoglobin 29.3, Mean Corpuscular Hemoglobin Concent 31.8, Mean Platelet Volume 9.4, Neutrophils (%) (Auto) 79.8, Lymphocytes (%) (Auto) 8.1, Monocytes (%) (Auto) 10.2, Eosinophils (%) (Auto) 1.1, Basophils (%) (Auto) 0.3, Neutrophils # (Auto ) 6.29, Lymphocytes # (Auto) 0.64, Monocytes # (Auto) 0.80, Eosinophils # (Auto ) 0.09, Basophils # (Auto) 0.02 04/05/17 21:12 Test 04/05/17 21:12 04/05/17 21:20 White Blood Count 7.88 K/uL (4.8-10.8) Red Blood Count 4.58 M/uL (4.7-6.1) Hemoglobin 13.4 g/dL (14.0-18.0) Hematocrit 42.1 % (42-52) Mean Corpuscular Volume 91.9 fL (80-100) Mean Corpuscular Hemoglobin 29.3 pg (25-34) Mean Corpuscular Hemoglobin Concent 31.8 g/dl (32-36) Platelet Count 206 K/uL (130-400) Mean Platelet Volume 9.4 fL (7.4-10.4) Neutrophils (%) (Auto) 79.8 % Lymphocytes (%) (Auto) 8.1 % Monocytes (%) (Auto) 10.2 % Eosinophils (%) (Auto) 1.1 % Basophils (%) (Auto) 0.3 % Neutrophils # (Auto) 6.29 K/uL (1.4-6.5) Lymphocytes # (Auto) 0.64 K/uL (1.2-3.4) Monocytes # (Auto) 0.80 K/uL (0.11-0.59) Eosinophils # (Auto) 0.09 K/uL (0-0.5) Basophils # (Auto) 0.02 K/uL (0-0.2) RDW Standard Deviation 50.1 fL (36.4-46.3) RDW Coefficient of Variation 14.8 % (11.5-14.5) Immature Granulocyte % (Auto) 0.5 % Immature Granulocyte # (Auto) 0.04 K/uL (0.00-0.02) Prothrombin Time 10.3 SECONDS (9.0-12.0) Prothromb Time International Ratio 1.0 (0.9-1.1) Anion Gap 7.0 mmol/L (3-11) Est Creatinine Clear Calc Drug Dose 58.5 ml/min Estimated GFR () 77.9 Estimated GFR (Non- 67.2 BUN/Creatinine Ratio 33.1 (10-20) Calcium Level 9.0 mg/dl (8.5-10.1) Magnesium Level 2.1 mg/dl (1.8-2.4) Troponin I < 0.015 ng/ml (0-0.045) Pro-B-Type Natriuretic Peptide 352 pg/ml (0-1800) Bedside Lactic Acid Venous 0.99 mmol/L (0.90-1.70) Laboratory results as reviewed by me. Medications Administered Medications (Trade) Dose Ordered Sig/Russ Route Start Time Stop Time Status Last Admin Dose Admin Clindamycin Phosphate 600 mg/ Dextrose 54 ml @ 100 mls/hr ONE ONCE IV 04/05/17 22:15 04/05/17 22:47 DC 04/05/17 23:14 100 MLS/HR ECG Indication: other (fever) Rate (beats per minute): 91 Rhythm: normal sinus Findings: RBBB, ST depression (Anterior), no ectopy, other (no STEMI, QTC 474) ED Course 2048: The patient was evaluated in room B4. A complete history and physical exam was performed. 2158: I spoke to the patient. He wants to go home and wants and antibiotic. 2215: Clindamycin Phosphate 600mg/Dextrose 54ml @ 100mls/hr IV. 2215: Discussed the patient's case with Dr. Chu of [facility]. The patient will be evaluated for further treatment and disposition. 8: Upon reevaluation, the patient is doing well. Discussed results and treatment plan with the patient. He verbalized understanding and agreement with the treatment plan. The patient will be evaluated for further management. Medical Decision Differential: Infectious, Reactive Airway Disease, Pneumonia, Pneumothorax, COPD , CHF, ACS, Pulmonary Embolism, MSK, GI, Dissection, amongst other etiologies entertained. Pleasant 86 yr old male with known aspiration risk arrives with fevers and cough from home. No fever here though notes 102 at home. Right lung is quite poor sounding though CXR unremarkable which may be partially dehydration and likely it being early infection. Labs looking OK. Patient prefers to go home thus ambulatory trial attempted and he desaturates in to the 80s. I do not feel it safe for him to go home with this issue. Will start IV Clinda given likely aspiration in setting of recent hospitalization. He is not septic nor in shock. Discussed with Hospitalist who will evaluate further. Medication Reconcilliation Current Medication List: was personally reviewed by me Blood Pressure Screening Patient's blood pressure: Elevated blood pressure Blood pressure disposition: Elevated BP felt to be situational Consults Time Called: 2211 Consulting Physician: Dr. Kimberley Samuelskaycee Returned Call: 2214 Discussed the patient's case with Dr. Chu of [facility]. The patient will be evaluated for further treatment and disposition. Impression Primary Impression: Aspiration pneumonia Additional Impression: Hypoxia Scribe Attestation The scribe's documentation has been prepared under my direction and personally reviewed by me in its entirety. I confirm that the note above accurately reflects all work, treatment, procedures, and medical decision making performed by me. Departure Information Dispostion Being Evaluated By Hospitalist Referrals Bret Nash MD (PCP) Patient Instructions My [facility] Problem Qualifiers
[2017-04-05 21:25] LABS: HEMATOCRIT 42.1 % (42-52); MEAN CELL VOLUME 91.9 fL (80-100); MEAN CORPUSCULAR HEMOGLOBIN 29.3 pg (25-34); MEAN CORPUSCULAR HGB CONC 31.8 g/dl (32-36); MEAN PLATELET VOLUME 9.4 fL (7.4-10.4); PLATELET COUNT 206 K/uL (130-400); RED BLOOD COUNT 4.58 M/uL (4.7-6.1); WHITE BLOOD COUNT 7.88 K/uL (4.8-10.8)
[2017-04-05 21:33] LABS: PROTHROMBIN TIME (PATIENT) 10.3 SECONDS (9.0-12.0)
[2017-04-05 21:42] LABS: BLOOD UREA NITROGEN 34 mg/dl (7-18); BUN/CREATININE RATIO 33.1 (10-20); CARBON DIOXIDE 24 mmol/L (21-32); CHLORIDE 105 mmol/L (98-107); CREATININE 1.02 mg/dl (0.60-1.40); GLUCOSE 98 mg/dl (70-99); MAGNESIUM 2.1 mg/dl (1.8-2.4); POTASSIUM 4.2 mmol/L (3.5-5.1); SODIUM 136 mmol/L (136-145)
--- NOTE | 2017-04-05 21:44 | DIAGNOSTIC IMAGING REPORT ---
CHEST ONE VIEW PORTABLE CLINICAL HISTORY: fever dyspnea COMPARISON STUDY: 02/25/2017 FINDINGS: Chronic changes at both lung bases including radiopaque densities at the mid and medial left base as well as right infrahilar region. As described previously this may be secondary to a prior episode of barium aspiration. Chronic atelectatic changes bilaterally considered chronic. No focal infiltrate. No acute infiltrate. IMPRESSION: Chronic change. No acute process. The above report was generated using voice recognition software. It may contain grammatical, syntax or spelling errors. Electronically signed by: Shahbaz Chandra M.D. 04/05/2017 9:43 PM Dictated Date/Time: 04/05/2017 9:41 PM
[2017-04-05] MEDS ORDERED: OMEG10002 PO (22:07)
[2017-04-05] MEDS ORDERED: MAGN1CAP4 PO (22:08)
[2017-04-05 22:13] LABS: BASO % 0.3 %; BASO ABS # 0.02 K/uL (0-0.2); COMPLETE YES; EOS % 1.1 %; IG% 0.5 %; LYMPH % 8.1 %; LYMPH ABS # 0.64 K/uL (1.2-3.4); MONO % 10.2 %; NEUT % 79.8 %
[2017-04-05] MEDS ORDERED: CLINDAMYCIN IV 600 MG in DEXTROSE 5% 50ML 50 ML IV ONE (22:15)
[2017-04-05] MEDS ORDERED: SODIUM CHLORIDE 0.9% 1000ML 1,000 ML IV ONE (23:30)
[2017-04-06] VITALS (9 sets, daily range): BP systolic 104–149; BP diastolic 66–92; PULSE 61–81; TEMP 36.4–36.7; O2SAT 93–98; Ht 185.4 cm; Wt 73.8 kg
[2017-04-06] MEDS ORDERED: LEVALBUTEROL/IPRATROPIUM NEB INH STA (00:52)
[2017-04-06] MEDS ORDERED: ONDANSETRON INJ 2 MG/ML 2 ML VIAL IV PRN (01:00)
[2017-04-06] MEDS ORDERED: LEVALBUTEROL/IPRATROPIUM NEB INH PRN (01:00)
[2017-04-06] MEDS ORDERED: FLUTICASONE PROPIONATE NA SPR 16 GM BTL NAE PRN (01:00)
[2017-04-06] MEDS ORDERED: TRAMADOL HCL 50 MG TAB PO PRN (01:00)
[2017-04-06] MEDS ORDERED: ACETAMINOPHEN 325 MG TAB PO PRN (01:00)
[2017-04-06] MEDS ORDERED: IPRATROPIUM BROMIDE NEB SOLN 0.02% 2.5 ML VIAL INH STA (02:18)
[2017-04-06] MEDS ORDERED: LEVALBUTEROL 1.25MG/0.5ML NEB INH STA (02:18)
[2017-04-06] MEDS: LEVALBUTEROL 1.25MG/0.5ML NEB INH SCH ×3 (02:51→14:35)
[2017-04-06] MEDS: IPRATROPIUM BROMIDE NEB SOLN 0.02% 2.5 ML VIAL INH SCH ×3 (02:51→14:35)
[2017-04-06] MEDS ORDERED: LEVALBUTEROL/IPRATROPIUM NEB INH SCH (03:00)
[2017-04-06] MEDS ORDERED: METHYLPREDNISOLONE IV 20 MG in SYRINGE 0 ML IV STA (03:56)
[2017-04-06] MEDS: CLINDAMYCIN HCL 150 MG CAP PO SCH ×2 (06:00→14:05)
[2017-04-06] MEDS ORDERED: ENOXAPARIN 30 MG/0.3 ML SYR SQ SCH (06:00)
--- NOTE | 2017-04-06 07:29 | HISTORY & PHYSICAL EXAMINATION ---
DATE OF ADMISSION: 04/06/2017 PRIMARY CARE PHYSICIAN: Dr. Nash. CHIEF COMPLAINT: Cough. HISTORY OF PRESENT ILLNESS: History obtained from the patient and records. Medical history is significant for CVA, hypertension not on meds, skin cancer sp surgery; bladder cancer post surgery, RA on chronic steroid therapy, past tobacco abuse; history of aspiration risk; bowel obstruction status post surgery, hx MRSA; chronic anemia (baseline hemoglobin 12-13). known aspiration risk, Recent confinement last month for partial recurrent bowel obstruction. Resolved with conservative management. Patient also developed aspiration pneumonia. Patient completed Invanz. Speech evaluation by speech therapy, Discharge instructions given. This morning, the patient coughed junky yellow sputum. No chest pain, no shortness of breath. May have aspirated as per patient. Fever 102. Raspy cough symptoms. Patient seen at urgent care center and subsequently directed to the ER. Px received IV Clindamycin for possible aspiration pneumonitis. Later on, noted to be hypoxemic in the ER, 88 on room air. MEDICAL HISTORY: As above. SURGERIES: Urologic prostate biopsy, bladder tumor surgery, hemorrhoidectomy, bowel surgery, cataract surgery, partial gastrectomy, hernia, skin cancer surgery. HOME MEDICATIONS: Include Ensure, Flonase, Plaquenil, magnesium, fish oil, prednisone, and Senokot. ALLERGIES: ZOSYN, PROPOXYPHENE, SULFA, TAZOBACTAM. FAMILY HISTORY: Stroke, thyroid cancer, heart disease, diabetes. PERSONAL AND SOCIAL HISTORY: Past tobacco abuse. No chronic intake of alcohol. 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 REVIEW OF SYSTEMS: As per HPI, all other ROS negative. PHYSICAL EXAMINATION: VITAL SIGNS: Blood pressure was noted to be 126/76, pulse rate 80, RR 20, temperature 36.7, sats 88 on room air, 90 on 2 liters. GENERAL: Noted to be comfortable, slightly anxious, no respiratory distress. SKIN: Pallor, warm. HEENT: Partial alopecia , pale palpebral conjuctivae, edentulous, dry buccal mucosa. NECK: No JVD. Supple. No tenderness. CHEST: bilateral rhonchi, no tenderness. CV : Regular rate and rhythm, palpable LE pulses. ABDOMEN: Soft, nontender. Ostomy noted. EXTREMITIES: No edema, no tenderness, no gross deformity. NEUROLOGIC: Coherent, no gross focality. LABS: Hemoglobin 13.4, white blood cell count 9, platelets 206. Sodium 140, potassium 4.2, chloride 105, CO2 of 24, BUN 34, creatinine 1, glucose of 98. Chest x-ray showed chronic change, no focal infiltrate. ASSESSMENT: 1. Acute hypoxemic respiratory failure secondary to possible aspiration pneumonitis known aspiration risk no sepsis for now. No clear new infiltrates on x-ray 2. Rheumatoid arthritis on chronic prednisone 3. bladder cancer sp surgery 4. HTN not on meds 5. hx CAD as per records 6. Skin cancer status post surgery 7. chronic anemia, hemoglobin baseline 8. Past tobacco abuse 9. hx MRSA PLAN: GMF supplemental O2. Clindamycin, aspiration precautions. Nebs, RTC, p.r.n. Solu-Medrol 1 dose Followup swallow eval. DVT prophylaxis with Lovenox subQ. Full code. MTDD
[2017-04-06] MEDS ORDERED: CLINDAMYCIN CONSULT ACTIVE PRN ×2 (08:00)
[2017-04-06 08:44] LABS: BASO % 0.2 %; BASO ABS # 0.01 K/uL (0-0.2); COMPLETE YES; EOS % 0.5 %; HEMATOCRIT 39.6 % (42-52); IG% 0.5 %; LYMPH % 11.4 %; LYMPH ABS # 0.73 K/uL (1.2-3.4); MEAN CELL VOLUME 92.3 fL (80-100); MEAN CORPUSCULAR HEMOGLOBIN 28.9 pg (25-34); MEAN CORPUSCULAR HGB CONC 31.3 g/dl (32-36); MEAN PLATELET VOLUME 9.5 fL (7.4-10.4); MONO % 4.2 %; NEUT % 83.2 %; PLATELET COUNT 188 K/uL (130-400); RED BLOOD COUNT 4.29 M/uL (4.7-6.1); WHITE BLOOD COUNT 6.41 K/uL (4.8-10.8)
[2017-04-06] MEDS ORDERED: IV FLUIDS COMPLETED PRN (10:15)
[2017-04-06] MEDS ORDERED: SENNA 8.6 MG TAB PO SCH (13:00)
[2017-04-06] MEDS ORDERED: MOXI400T2 PO (14:58)
[2017-04-06] MEDS ORDERED: LCTX PO ×2 (14:58→15:02)
[2017-04-06] MEDS ORDERED: CLIN150C15 PO (15:02)
--- NOTE | 2017-04-06 15:04 | Discharge Instructions ---
Discharge Instructions Date of Service Apr 06, 2017. Admission Reason for Admission: COUGH Discharge Discharge Diagnosis / Problem: cough. aspiration pneumonitis? Discharge Goals Goal(s): Decrease discomfort, Improve function Activity Recommendations Activity Limitations: resume your previous activity . Instructions / Follow-Up Instructions / Follow-Up FOLLOWUP WITH FAMILY DOCTOR ON Mar AT 12:45PM. OUT PATIENT SPEECH THERAPY REFERRAL PER FAMILY DOCTOR. Speech Therapy Discharge Instructions * 1. Slippery mechanical soft. Avoid foods that are dry, thick, pasty, doughy. Use condiments such as butter/gravy/sauce to assist in making foods moist. 2. STRICT Aspiration and GERD precautions, NO straws. Fully upright for meals and for 30 minutes after meals are complete. Head of bed should be elevated to at least 30 degrees at all times, to include while asleep. 3. Safe swallow strategies: Chin tuck (hold chin to chest with food/liquid bolus in mouth, swallow with chin down) with Double swallow with each bite/sip. 4. Stringent oral care, to include brushing all surfaces of the mouth and tongue prior to and after meals, as well as before bed. This will reduce oral bacteria that can be aspirated in saliva. 5. Would benefit from outpatient speech therapy with focus on general pharyngeal strengthening exercises and further education/carryover of diet and safe swallow strategies. Current Hospital Diet Patient's current hospital diet: Regular Diet Discharge Diet Recommended Diet: Regular Diet Diet Texture: Mechanical Soft (ground) Pending Studies Studies pending at discharge: no Medical Emergencies . Who to Call and When: Medical Emergencies: If at any time you feel your situation is an emergency, please call 911 immediately. . Non-Emergent Contact Non-Emergency issues call your: Primary Care Provider . . "Provider Documentation" section prepared by James Pedroza. . VTE Core Measure Inpt VTE Proph given/why not?: Enoxaparin (Lovenox)SQ
--- NOTE | 2017-04-06 19:04 | Progress Note ---
Internal Med Progress Note Date of Service: Apr 06, 2017. Provider Documentation: SUBJECTIVE: resting comfortably cough much improved no sob now afebrile no chest pain wants to go home wants to continue mechanical soft diet though explained risk of aspiration and fatal out come OBJECTIVE: Vital Signs-as noted below Exam: General-alert and oriented. Not in distress ENT-normal hearing Neck-no neck masses Lungs- cta b/l no wheezing or crackles Heart-s1 and s2 heard regular rate and rhythm no murmurs Abdomen-soft bowel sounds present no tenderness present no distension Extremities-no edema no erythema Neuro-alert and oriented moves extremities Lab data as noted below. ASSESSMENT & PLAN: 1. Acute hypoxemic respiratory failure secondary to possible aspiration pneumonitis known aspiration risk No clear new infiltrates on x-ray started on clindamycin 'symptoms improved seen by speech patient doesn't want any tube feeds he wants to continue current mechanical soft diet though explained about recurrent aspiration and possible fatal out come wants to be discharged as feeling well now discharged on po clindamycin dn probiotic out patient speech therapy as per pcp. As per H and P: 2. Rheumatoid arthritis on chronic prednisone 3. bladder cancer sp surgery 4. HTN not on meds 5. hx CAD as per records 6. Skin cancer status post surgery 7. chronic anemia, hemoglobin baseline 8. Past tobacco abuse 9. hx MRSA discharged home Vital Signs: Date Time Temp Pulse Resp B/P (MAP) Pulse Ox O2 Delivery O2 Flow Rate FiO2 04/06/17 15:39 36.6 64 22 98 Room Air 04/06/17 15:08 36.6 64 22 116/75 (89) 98 Nasal Cannula 2.0 04/06/17 14:35 69 18 98 Room Air 04/06/17 11:16 95 04/06/17 11:09 36.6 81 20 148/92 (110) 94 Room Air 04/06/17 08:00 Room Air 04/06/17 07:53 36.4 61 18 104/66 (79) 98 Room Air 04/06/17 07:09 66 18 95 Room Air 04/06/17 03:46 36.7 81 18 121/77 93 Room Air 04/06/17 02:47 81 18 96 Nasal Cannula 2.0 04/06/17 01:22 71 20 118/71 93 04/06/17 01:21 71 20 118/71 93 Nasal Cannula 2.0 04/06/17 01:16 88 Room Air 04/06/17 01:16 Nasal Cannula 2.0 04/05/17 23:12 37.0 80 20 126/76 93 Room Air 04/05/17 20:46 37.5 100 20 138/84 92 Room Air Lab Results: Results Past 24 Hours Test 04/05/17 21:12 04/05/17 21:20 04/06/17 08:37 Range/Units White Blood Count 7.88 6.41 4.8-10.8 K/uL Red Blood Count 4.58 4.29 4.7-6.1 M/uL Hemoglobin 13.4 12.4 14.0-18.0 g/dL Hematocrit 42.1 39.6 42-52 % Mean Corpuscular Volume 91.9 92.3 80-100 fL Mean Corpuscular Hemoglobin 29.3 28.9 25-34 pg Mean Corpuscular Hemoglobin Concent 31.8 31.3 32-36 g/dl Platelet Count 206 188 130-400 K/uL Mean Platelet Volume 9.4 9.5 7.4-10.4 fL Neutrophils (%) (Auto) 79.8 83.2 % Lymphocytes (%) (Auto) 8.1 11.4 % Monocytes (%) (Auto) 10.2 4.2 % Eosinophils (%) (Auto) 1.1 0.5 % Basophils (%) (Auto) 0.3 0.2 % Neutrophils # (Auto) 6.29 5.34 1.4-6.5 K/uL Lymphocytes # (Auto) 0.64 0.73 1.2-3.4 K/uL Monocytes # (Auto) 0.80 0.27 0.11-0.59 K/uL Eosinophils # (Auto) 0.09 0.03 0-0.5 K/uL Basophils # (Auto) 0.02 0.01 0-0.2 K/uL RDW Standard Deviation 50.1 51.1 36.4-46.3 fL RDW Coefficient of Variation 14.8 15.1 11.5-14.5 % Immature Granulocyte % (Auto) 0.5 0.5 % Immature Granulocyte # (Auto) 0.04 0.03 0.00-0.02 K/uL Prothrombin Time 10.3 9.0-12.0 SECONDS Prothromb Time International Ratio 1.0 0.9-1.1 Sodium Level 136 136-145 mmol/L Potassium Level 4.2 3.5-5.1 mmol/L Chloride Level 105 98-107 mmol/L Carbon Dioxide Level 24 21-32 mmol/L Anion Gap 7.0 3-11 mmol/L Blood Urea Nitrogen 34 7-18 mg/dl Creatinine 1.02 0.60-1.40 mg/dl Est Creatinine Clear Calc Drug Dose 58.5 ml/min Estimated GFR () 77.9 Estimated GFR (Non- 67.2 BUN/Creatinine Ratio 33.1 10-20 Random Glucose 98 70-99 mg/dl Calcium Level 9.0 8.5-10.1 mg/dl Magnesium Level 2.1 1.8-2.4 mg/dl Troponin I < 0.015 0-0.045 ng/ml Pro-B-Type Natriuretic Peptide 352 0-1800 pg/ml Bedside Lactic Acid Venous 0.99 0.90-1.70 mmol/L Microbiology Results 04/05/17 Blood Culture, Received Pending 04/05/17 Blood Culture, Received Pending 04/06/17 Gram Stain - Final, Resulted 04/06/17 Sputum Culture, Resulted Pending
--- NOTE | 2017-04-06 19:26 | Discharge Summary ---
Discharge Summary Date of Service Apr 06, 2017. Discharge Summary Admission Date: Apr 06, 2017 at 00:41 Discharge Date: Apr 06, 2017 Discharge Disposition: Home Principal Diagnosis: COUGH ASPIRATION PNEUMONITIS? Secondary Diagnoses/Problems: CVA, hypertension not on meds, skin cancer sp surgery; bladder cancer post surgery, RA on chronic steroid therapy, past tobacco abuse; history of aspiration risk; bowel obstruction status post surgery, hx MRSA; chronic anemia (baseline hemoglobin 12-13). known aspiration risk Procedures: CXR: Chronic change. No acute process. Medication Reconciliation New Medications: Clindamycin Hcl (Clindamycin Hcl) 150 Mg Cap 450 MG PO TID for 6 Days Lactobacillus Acidophilus (Lactinex) Tab 4 TAB PO TID for 10 Days, TAB Continued Medications: Enteral Nutrition Formula (Ensure) Liq 1 DOSE PO TID Fluticasone Propionate (Nasal) (Flonase Allergy Relief) 50 Mcg/Act Spr 2 SPRAYS BRITTNEY DAILY PRN for Nasal Congestion Hydroxychloroquine Sulfate (Plaquenil) 200 Mg Tab 400 MG PO QPM, TAB Magnesium Oxide (Magnesium) 500 Mg Cap 500 MG PO QAM Rifle-3 Fatty Acids (Fish Oil) 1,000 Mg Cap 1000 MG PO DAILY Prednisone (Prednisone) 5 Mg Tab 5 MG PO BID, TAB Senna (Senokot) 8.6 Mg Tab 1 TAB PO BID Admission Information HPI (per Admitting provider): History obtained from the patient and records. Medical history is significant for CVA, hypertension not on meds, skin cancer sp surgery; bladder cancer post surgery, RA on chronic steroid therapy, past tobacco abuse; history of aspiration risk; bowel obstruction status post surgery, hx MRSA; chronic anemia (baseline hemoglobin 12-13). known aspiration risk, Recent confinement last month for partial recurrent bowel obstruction. Resolved with conservative management. Patient also developed aspiration pneumonia. Patient completed Invanz. Speech evaluation by speech therapy, Discharge instructions given. This morning, the patient coughed junky yellow sputum. No chest pain, no shortness of breath. May have aspirated as per patient. Fever 102. Raspy cough symptoms. Patient seen at urgent care center and subsequently directed to the ER. Px received IV Clindamycin for possible aspiration pneumonitis. Later on, noted to be hypoxemic in the ER, 88 on room air. Physical Exam (per Admitting): VITAL SIGNS: Blood pressure was noted to be 126/76, pulse rate 80, RR 20, temperature 36.7, sats 88 on room air, 90 on 2 liters. GENERAL: Noted to be comfortable, slightly anxious, no respiratory distress. SKIN: Pallor, warm. HEENT: Partial alopecia , pale palpebral conjuctivae, edentulous, dry buccal mucosa. NECK: No JVD. Supple. No tenderness. CHEST: bilateral rhonchi, no tenderness. CV : Regular rate and rhythm, palpable LE pulses. ABDOMEN: Soft, nontender. Ostomy noted. EXTREMITIES: No edema, no tenderness, no gross deformity. NEUROLOGIC: Coherent, no gross focality. Hospital Course 1. Acute hypoxemic respiratory failure secondary to possible aspiration pneumonitis known aspiration risk No clear new infiltrates on x-ray started on clindamycin 'symptoms improved seen by speech patient doesn't want any tube feeds he wants to continue current mechanical soft diet though explained about recurrent aspiration and possible fatal out come wants to be discharged as feeling well now discharged on po clindamycin dn probiotic out patient speech therapy as per pcp. As per H and P: 2. Rheumatoid arthritis on chronic prednisone 3. bladder cancer sp surgery 4. HTN not on meds 5. hx CAD as per records 6. Skin cancer status post surgery 7. chronic anemia, hemoglobin baseline 8. Past tobacco abuse 9. hx MRSA discharged home Total time spent on discharge = 35MINUTES This includes examination of the patient, discharge planning, medication reconciliation, and communication with other providers. Discharge Instructions Discharge Instructions Date of Service Apr 06, 2017. Admission Reason for Admission: COUGH Discharge Discharge Diagnosis / Problem: cough. aspiration pneumonitis? Discharge Goals Goal(s): Decrease discomfort, Improve function Activity Recommendations Activity Limitations: resume your previous activity . Instructions / Follow-Up Instructions / Follow-Up FOLLOWUP WITH FAMILY DOCTOR ON Mar AT 12:45PM. OUT PATIENT SPEECH THERAPY REFERRAL PER FAMILY DOCTOR. Speech Therapy Discharge Instructions * 1. Slippery mechanical soft. Avoid foods that are dry, thick, pasty, doughy. Use condiments such as butter/gravy/sauce to assist in making foods moist. 2. STRICT Aspiration and GERD precautions, NO straws. Fully upright for meals and for 30 minutes after meals are complete. Head of bed should be elevated to at least 30 degrees at all times, to include while asleep. 3. Safe swallow strategies: Chin tuck (hold chin to chest with food/liquid bolus in mouth, swallow with chin down) with Double swallow with each bite/sip. 4. Stringent oral care, to include brushing all surfaces of the mouth and tongue prior to and after meals, as well as before bed. This will reduce oral bacteria that can be aspirated in saliva. 5. Would benefit from outpatient speech therapy with focus on general pharyngeal strengthening exercises and further education/carryover of diet and safe swallow strategies. Current Hospital Diet Patient's current hospital diet: Regular Diet Discharge Diet Recommended Diet: Regular Diet Diet Texture: Mechanical Soft (ground) Pending Studies Studies pending at discharge: no Medical Emergencies . Who to Call and When: Medical Emergencies: If at any time you feel your situation is an emergency, please call 911 immediately. . Non-Emergent Contact Non-Emergency issues call your: Primary Care Provider . . "Provider Documentation" section prepared by James Pedroza. . VTE Core Measure Inpt VTE Proph given/why not?: Enoxaparin (Lovenox)SQ
[2017-04-06] MEDS ORDERED: HYDROXYCHLOROQUINE SULFATE 200 MG TAB PO SCH (21:00)
== END 2017-04-06 16:15 | disposition home or self-care (01) ==
LOC: C.EDB 20:23 → C.4E 04-06 00:41 → ENRESERV 04-06 01:03
PROVIDERS: ADMIT Internal Medicine; ATTEND Internal Medicine
DX: R05 Cough (principal); J96.01 Acute respiratory failure with hypoxia; I10 Essential (primary) hypertension; I25.9 Chronic ischemic heart disease, unspecified; M06.9 Rheumatoid arthritis, unspecified; I25.10 Atherosclerotic heart disease of native coronary artery without angina pectoris; Z79.52 Long term (current) use of systemic steroids; D53.9 Nutritional anemia, unspecified; K21.9 Gastro-esophageal reflux disease without esophagitis; Z87.891 Personal history of nicotine dependence; Z86.14 Personal history of Methicillin resistant Staphylococcus aureus infection; Z98.49 Cataract extraction status, unspecified eye; Z85.820 Personal history of malignant melanoma of skin; Z90.3 Acquired absence of stomach [part of]; Z88.2 Allergy status to sulfonamides; Z86.73 Personal history of transient ischemic attack (TIA), and cerebral infarction without residual deficits; Z82.3 Family history of stroke; Z82.49 Family history of ischemic heart disease and other diseases of the circulatory system; Z83.3 Family history of diabetes mellitus; Z90.49 Acquired absence of other specified parts of digestive tract; Z90.89 Acquired absence of other organs

== ENCOUNTER 2018-11-28 20:01 | Inpatient (IN) ==
--- OUTSIDE RECORDS SUMMARY | 2018-11-28 20:04 | External Medical Summary | Continuity of Care Document ---
:1930 Author Name Maureen Forbes Address Unavailable Unavailable , Care Team Providers Name Role Phone Heriberto Forbes Unavailable [email or web address] Meggan YANES Unavailable Unavailable Unavailable Unavailable Unavailable Problems Routine history and physical examination of adult (V70.0) (Z 00.00) Allergies and Adverse Reactions Propoxyphene HCl CAPS (Allergy) Sulfa Drugs (Allergy) Medications Peptamen 1.5 Oral Liquid; 90 ML/HR FOR 14 HOURS VIA J-TUBE 1 0hours off Start: 18-Nov-2011 Refills: 0 Aspirin 81 MG Oral Tablet Chewable; TAKE 4 TABLET Daily Refills: 0 Dulcolax 10 MG Rectal Suppository; INSERT 1 SUPPOSITORY RECT ALLY ONCE DAILY. Refills: 0 Finasteride 5 MG Oral Tablet; TAKE 1 TABLET DAILY. Refills: 0 Ferrous Sulfate 325 (65 Fe) MG Oral Tablet; TAKE 1 TABLET DA YANICK WITH FOOD. Refills: 0 Multi Vitamin/Minerals TABS; TAKE 1 TABLET DAILY. Refills: 0 Procedures Procedures not documented Immunizations Pneumococcal polysaccharide vaccine, 23 valent On: 09-Nov-19 12 0:00 Social History - Smoking Status Never smoker Plan of Treatment Planned Observations Planned Goals not documented Results No Known Results Results not documented
[2018-11-28] MEDS ORDERED: SODIUM CHLORIDE 0.9% 1000ML 1,000 ML IV ONE (20:40)
[2018-11-28 21:14] LABS: Appearance Urine Cloudy (Clear); Bacteria Urine Automated 4+ (Negative); Bilirubin Urine Negative (Negative); Blood Urine Negative (Negative); Color Urine Dark Yellow; Epithelial Cell Urine Auto >30 /lpf (0-5); Glucose Urine UA Negative (Negative); Ketones Urine Negative (Negative); Leukocyte Esterase Urine Negative (Negative); Nitrite Urine Negative (Negative); Specific Gravity Urine 1.015 (1.000-1.030); Urobilinogen Urine Negative (Negative); pH Urine >= 9.0 (4.5-7.5)
[2018-11-28 21:20] LABS: Basophils # (auto) 0.02 K/uL (0-0.2); Basophils % (auto) 0.1 %; Eosinophils # (auto) 0.08 K/uL (0-0.5); Eosinophils % (auto) 0.6 %; Hematocrit (blood only) 38.7 % (42-52); Hemoglobin 12.5 g/dL (14.0-18.0); Immature Granulocytes # (auto) 0.08 K/uL (0.00-0.02); Immature Granulocytes % (auto) 0.6 %; Lymphocytes # (auto) 0.99 K/uL (1.2-3.4); Lymphocytes % (auto) 7.2 %; Mean Corpuscular Hgb Conc 32.3 g/dL (32-36); Mean Corpuscular Volume 91.5 fL (80-100); Mean Platelet Volume 9.5 fL (7.4-10.4); Monocytes # (auto) 0.68 K/uL (0.11-0.59); Monocytes % (auto) 4.9 %; Neutrophils # (auto) 11.95 K/uL (1.4-6.5); Neutrophils % (auto) 86.6 %; Platelet Count 197 K/uL (130-400); RDW Coefficient of Variation 14.3 % (11.5-14.5); RDW Standard Deviation 48.1 fL (36.4-46.3); Red Blood Count 4.23 M/uL (4.7-6.1)
[2018-11-28 21:31] LABS: Protein Urine 1+ (Negative)
[2018-11-28 21:33] LABS: Renal Epithelial Cells Urine 0-5 /lpf (0-5); Triple Phosphate Crystal Urine Present (None Prsent)
[2018-11-28 21:37] LABS: Albumin Level 2.6 gm/dl (3.4-5.0); BUN Creatinine Ratio 29.7 (10-20); Calcium 8.5 mg/dl (8.5-10.1); Creatinine Clr Calc Pharmacy 51.9 ml/min; Est GFR (African American) 72.5; Est GFR (Non-African American) 62.5; Potassium 3.9 mmol/L (3.5-5.1)
[2018-11-28 21:42] LABS: Albumin Globulin Ratio 0.8 (0.9-2); Bilirubin,Total 0.5 mg/dl (0.2-1); Globulin 3.2 gm/dl (2.5-4.0); INR 1.1 (0.9-1.1); Prothrombin Time 10.9 Seconds (9.0-12.0); Total Protein 5.8 gm/dl (6.4-8.2); Troponin I 0.035 ng/ml (0-0.045)
[2018-11-28] MEDS ORDERED: CLINDAMYCIN 600 MG/54 ML BAG IV ONE (21:52)
--- NOTE | 2018-11-28 21:55 | XRay Report ---
XR chest 1V portable CLINICAL HISTORY: Cough. COMPARISON STUDY: Chest CT February 25, 2017. Chest radiograph April 05, 2017. FINDINGS: Bibasilar hyperdensities are again noted. Bibasilar opacities are noted, left greater than right. There is no pneumothorax or pleural effusion. There is no evidence for pulmonary edema. Cardio mediastinal silhouette is stable. IMPRESSION: Bibasilar opacities, left greater than right, which may reflect atelectasis or pneumonia . Electronically signed by: Ned Lassiter M.D. 11/28/2018 9:54 PM
[2018-11-28] MEDS ORDERED: OPTIRAY 320 125ml IV PRN (22:21)
--- NOTE | 2018-11-28 23:20 | CT Scan Report ---
CT ANGIOGRAPHY OF THE CHEST, PULMONARY EMBOLUS PROTOCOL CLINICAL HISTORY: PE, +dimer COMPARISON STUDY: Chest CT February 25, 2017. Chest radiograph performed earlier today. TECHNIQUE: Following IV administration of 114 mL of Optiray-320, helical axial images of the chest we re obtained utilizing the pulmonary embolus protocol. Maximal intensity projections and sagittal and coronal reformats were viewed on an independent 3D workstation. IV contrast was administered withou t complication. Automated exposure control was utilized for the study. A dose lowering technique wa s utilized adhering to the principles of ALARA. CT DOSE: 331.82 mGy.cm FINDINGS: No pulmonary emboli are identified. The heart is mildly enlarged. There is extensive coron [place] artery calcification. There is no thoracic or dissection. No enlarged thoracic lymph nodes are no fitz. Moderate left lower lobe airspace opacity is noted. There is mild right lower lobe airspace opac ity. Hyperdensities within the left lower lobe and right middle lobe are unchanged from CT of Septemb 2016. There has been interval development of a 4.7 x 21.6 cm branching tubular opacity within the right lower lobe. Secretions and mucoid impaction within the left lower lobe are noted. There is no pneumothorax or pleural effusion. Old bilateral rib fractures are noted. Postoperative findings in volving the stomach are noted. There are multiple locules of extraluminal gas within the right upper quadrant which are partially imaged on this exam. These are located anterior and inferior to the hepa tic flexure. IMPRESSION: 1. No pulmonary emboli identified. 2. Bilateral lower lobe airspace opacities, greater on the left. The findings favor pneumonia, potent ially on the basis of aspiration. 3. Interval development of a branching tubular structure within the right lower lobe which favors muc oid impacted bronchi. A neoplastic process is considered less likely however a follow-up chest CT in 3 months is recommended. 4. Multiple locules of extraluminal gas within the right upper quadrant. These are nonspecific and pa rtially imaged on this exam. This could be correlated with abdominal pain and CT of the abdomen and p kendal as indicated. Electronically signed by: Ned Lassiter M.D. 11/28/2018 11:18 PM
[2018-11-28] MEDS ORDERED: ACETAMINOPHEN 500 MG TAB PO STA (23:31)
--- NOTE | 2018-11-29 00:48 | Emergency Department Note ---
Entered by Stephanie Mercedes acting as a scribe for Barrington Aparicio M.D. History of Present Illness General Chief complaint: Illness Source: patient History of Present Illness Provider complaint: fever Onset (ago): hour(s) 8 Location: head Pain Consistency: + constant Associated symptoms: + cough, + fever/chills and + other (-abdominal pain, +lightheadedness); no nausea/vomiting and no syncope Treatments prior to arrival: none The patient is a 88 year old male who presents to the Emergency Room with complaints of a constant fever. The patient states that he has had a fever since 1200 today and has been experiencing lightheadedness, chills, and cough. The patients states that he has been coughing up phlegm and denies any choking events. The patient denies any nausea, vomiting, abdominal pain, or loss of consciousness. He states that he was working out in his yard this morning and was fine. He reports a history of aspiration pneumonia. He denies any cardiac history of diabetes mellitus. He denies any treatment prior to arrival. Home Medications Home Medications Medication Instructions Recorded Confirmed Type hydroxychloroquine 200 mg PO BID 11/29/18 11/29/18 History magnesium oxide 500 mg PO DAILY 11/29/18 11/29/18 History prednisone 5 mg PO BID 11/29/18 11/29/18 History sennosides [senna] 8.6 mg PO BID 11/29/18 11/29/18 History Allergies Allergy/AdvReac Type Severity Reaction Status Date / Time piperacillin Allergy Severe SHORTNESS Verified 11/29/18 00:09 OF BREATH tazobactam Allergy Severe SHORTNESS Verified 11/29/18 00:09 OF BREATH Sulfa (Sulfonamide Allergy Unknown SWELLING Verified 11/29/18 00:09 Antibiotics) propoxyphene AdvReac Unknown BLOOD Verified 11/29/18 00:09 PRESSURE DROPS Past Med/Surg History Medical History Aspiration pneumonia (Acute) Social History Feels Safe at Home: Yes Smoking Status: Former smoker Review of Systems See HPI for pertinent positives & negatives. and A total of 10 systems reviewed and were otherwise negative Physical Exam Vital Signs Vital Signs - 24 hr 11/28/18 19:55 11/28/18 20:08 11/28/18 22:42 Temperature 36.1 C L 36.1 C L Temperature Source Oral Oral Sepsis Recent Fever Within 48 Hours No Sepsis New/Unexplained Change in Mental Status No Sepsis Action Taken by Nursing No Action Required Pulse Rate 92 H Pulse Rate [Right Finger] 92 H 90 Respiratory Rate 21 21 18 Respiratory Depth Normal Blood Pressure 119/60 Blood Pressure [Right Arm] 119/60 112/66 Blood Pressure Mean 79 Blood Pressure Mean [Right Arm] 79 81 Blood Pressure Position Lying Pulse Oximetry 97 94 94 Oxygen Delivery Method Room Air Room Air Room Air GENERAL: Awake, alert, well-appearing, in no distress HENT: Normocephalic, atraumatic. EYES: Normal conjunctiva. Sclera non-icteric. NECK: Supple. No nuchal rigidity. RESPIRATORY: Clear to auscultation. No wheezes. Decreased base lower breath sounds. CARDIAC: Normal rate. Normal rhythm. Extremities warm and well perfused. GI: Soft, non-distended. RLQ urostomy. No rebound or guarding. No masses. RECTAL: Deferred. MUSCULOSKELETAL: Atraumatic. Chest examination reveals no tenderness. There is no CVA tenderness to palpation. LOWER EXTREMITIES: Calves are equal size bilaterally and non-tender. No edema NEURO: Normal sensorium. No sensory or motor deficits noted. No facial droop. SKIN: Flushed. Very warm and dry. No rash or jaundice noted. Course 2033: The patient was evaluated in room B9, and a complete history and physical examination were performed. 2229: I reviewed the patient's case with Dr. Kirk Lou. He will evaluate the patient for further management. Consultations Consultation #1: Dr. Kirk Lou Time: 22:30 Administered Medications Ioversol (Optiray 320 125ml) 114 ml IV ONCE PRN PRN Reason: Interaction Checking Stop: 12/02/18 22:20 Last Admin: 11/28/18 22:22 Dose: 114 ml Documented by: [id number] Discontinued Medications Acetaminophen (Tylenol) 1,000 mg PO NOW STA Stop: 11/28/18 23:32 Last Admin: 11/28/18 23:53 Dose: 1,000 mg Documented by: [id number] Sodium Chloride (Nss 1000ml) 1,000 mls @ 999 mls/hr IV .Q1H1M ONE Stop: 11/28/18 21:40 Last Infusion: 11/28/18 21:55 Dose: 0 mls/hr Documented by: [id number] Admin: 11/28/18 20:56 Dose: 999 mls/hr Documented by: [id number] Clindamycin Phosphate (Cleocin) 600 mg in 54 mls @ 100 mls/hr IV ONE ONE Stop: 11/28/18 22:24 Last Infusion: 11/28/18 23:58 Dose: 0 mls/hr Documented by: [id number] Admin: 11/28/18 22:48 Dose: 100 mls/hr Documented by: [id number] Medical Decision Making Differential Diagnosis Differential diagnosis: Etiologies such as viral syndrome, otitis, pharyngitis, pneumonia, influenza, meningitis, urinary tract infection, sepsis, bacteremia, as well as others were entertained. Medical Records Attestation: I reviewed the patient's medical records. Home Medications Current Medication List: was personally reviewed by me Laboratory Data Attestation: I reviewed the patient's lab results. Result diagrams: 11/28/18 21:09 11/28/18 21:09 Lab Results 11/28/18 11/28/18 11/28/18 Range/Units 21:05 21:09 21:09 WBC 13.80 H (4.8-10.8) K/uL RBC 4.23 L (4.7-6.1) M/uL Hgb 12.5 L (14.0-18.0) g/dL Hct 38.7 L (42-52) % MCV 91.5 (80-100) fL MCH 29.6 (25-34) pg MCHC 32.3 (32-36) g/dL RDW Std Deviation 48.1 H (36.4-46.3) fL RDW Coeff of Angela 14.3 (11.5-14.5) % Plt Count 197 (130-400) K/uL MPV 9.5 (7.4-10.4) fL Immature Gran % (Auto) 0.6 % Neut % (Auto) 86.6 % Lymph % (Auto) 7.2 % [place] % (Auto) 4.9 % Eos % (Auto) 0.6 % Baso % (Auto) 0.1 % Immature Gran # (Auto) 0.08 H (0.00-0.02) K/uL Neut # (Auto) 11.95 H (1.4-6.5) K/uL Lymph # (Auto) 0.99 L (1.2-3.4) K/uL [place] # (Auto) 0.68 H (0.11-0.59) K/uL Eos # (Auto) 0.08 (0-0.5) K/uL Baso # (Auto) 0.02 (0-0.2) K/uL PT 10.9 (9.0-12.0) Seconds INR 1.1 (0.9-1.1) POC D-Dimer (0-450) ng/mlFEU Sodium (136-145) mmol/L Potassium (3.5-5.1) mmol/L Chloride (98-107) mmol/L Carbon Dioxide (21-32) mmol/L Anion Gap (3-11) BUN (7-18) mg/dl Creatinine (0.6-1.4) mg/dl Est Cr Clr Drug Dosing ml/min Est GFR ( Amer) Est GFR (Non-Af Amer) BUN/Creatinine Ratio (10-20) Glucose (70-99) mg/dl Lactate (0.4-2.0) mmol/L Calcium (8.5-10.1) mg/dl Total Bilirubin (0.2-1) mg/dl AST (15-37) U/L ALT (12-78) U/L Alkaline Phosphatase (45-117) U/L Troponin I (0-0.045) ng/ml Total Protein (6.4-8.2) gm/dl Albumin (3.4-5.0) gm/dl Globulin (2.5-4.0) gm/dl Albumin/Globulin Ratio (0.9-2) Lipase (73-393) U/L Urine Color Dark Yellow Urine Appearance Cloudy A (Clear) Urine pH >= 9.0 H (4.5-7.5) Ur Specific [place] 1.015 (1.000-1.030) Urine Protein 1+ H (Negative) Urine Glucose (UA) Negative (Negative) Urine Ketones Negative (Negative) Urine Blood Negative (Negative) Urine Nitrite Negative (Negative) Urine Bilirubin Negative (Negative) Urine Urobilinogen Negative (Negative) Ur Leukocyte Esterase Negative (Negative) Urine WBC (Auto) 10-30 H (0-5) /hpf Urine RBC (Auto) 5-10 H (0-4) /hpf U Hyaline Cast (Auto) 1-5 (0-5) /lpf U Epithel Cells (Auto) >30 H (0-5) /lpf Urine Bacteria (Auto) 4+ H (Negative) Ur Renal Epithelial Cell 0-5 (0-5) /lpf Triple Phos Crystals Present A (None Prsent) 11/28/18 11/28/18 11/28/18 Range/Units 21:09 21:09 21:13 WBC (4.8-10.8) K/uL RBC (4.7-6.1) M/uL Hgb (14.0-18.0) g/dL Hct (42-52) % MCV (80-100) fL MCH (25-34) pg MCHC (32-36) g/dL RDW Std Deviation (36.4-46.3) fL RDW Coeff of Angela (11.5-14.5) % Plt Count (130-400) K/uL MPV (7.4-10.4) fL Immature Gran % (Auto) % Neut % (Auto) % Lymph % (Auto) % [place] % (Auto) % Eos % (Auto) % Baso % (Auto) % Immature Gran # (Auto) (0.00-0.02) K/uL Neut # (Auto) (1.4-6.5) K/uL Lymph # (Auto) (1.2-3.4) K/uL [place] # (Auto) (0.11-0.59) K/uL Eos # (Auto) (0-0.5) K/uL Baso # (Auto) (0-0.2) K/uL PT (9.0-12.0) Seconds INR (0.9-1.1) POC D-Dimer > 450 H* (0-450) ng/mlFEU Sodium 140 (136-145) mmol/L Potassium 3.9 (3.5-5.1) mmol/L Chloride 107 (98-107) mmol/L Carbon Dioxide 25 (21-32) mmol/L Anion Gap 8.0 (3-11) BUN 32 H (7-18) mg/dl Creatinine 1.07 (0.6-1.4) mg/dl Est Cr Clr Drug Dosing 51.9 ml/min Est GFR ( Amer) 72.5 Est GFR (Non-Af Amer) 62.5 BUN/Creatinine Ratio 29.7 H (10-20) Glucose 89 (70-99) mg/dl Lactate 1.5 (0.4-2.0) mmol/L Calcium 8.5 (8.5-10.1) mg/dl Total Bilirubin 0.5 (0.2-1) mg/dl AST 25 (15-37) U/L ALT 26 (12-78) U/L Alkaline Phosphatase 65 (45-117) U/L Troponin I 0.035 (0-0.045) ng/ml Total Protein 5.8 L (6.4-8.2) gm/dl Albumin 2.6 L (3.4-5.0) gm/dl Globulin 3.2 (2.5-4.0) gm/dl Albumin/Globulin Ratio 0.8 L (0.9-2) Lipase 101 (73-393) U/L Urine Color Urine Appearance (Clear) Urine pH (4.5-7.5) Ur Specific [place] (1.000-1.030) Urine Protein (Negative) Urine Glucose (UA) (Negative) Urine Ketones (Negative) Urine Blood (Negative) Urine Nitrite (Negative) Urine Bilirubin (Negative) Urine Urobilinogen (Negative) Ur Leukocyte Esterase (Negative) Urine WBC (Auto) (0-5) /hpf Urine RBC (Auto) (0-4) /hpf U Hyaline Cast (Auto) (0-5) /lpf U Epithel Cells (Auto) (0-5) /lpf Urine Bacteria (Auto) (Negative) Ur Renal Epithelial Cell (0-5) /lpf Triple Phos Crystals (None Prsent) Imaging Data Radiologist's Impression: Radiology results as stated below per my review and the radiologist's interpretation: XR chest 1V portable CLINICAL HISTORY: Cough. COMPARISON STUDY: Chest CT February 25, 2017. Chest radiograph April 05, 2017. FINDINGS: Bibasilar hyperdensities are again noted. Bibasilar opacities are noted, left greater than right. There is no pneumothorax or pleural effusion. There is no evidence for pulmonary edema. Cardiomediastinal silhouette is stable. IMPRESSION: Bibasilar opacities, left greater than right, which may reflect atelectasis or pneumonia. Electronically signed by: Ned Lassiter M.D. 11/28/2018 9:[address] ANGIOGRAPHY OF THE CHEST, PULMONARY EMBOLUS PROTOCOL CLINICAL HISTORY: PE, +dimer COMPARISON STUDY: Chest CT February 25, 2017. Chest radiograph performed earlier today. TECHNIQUE: Following IV administration of 114 mL of Optiray-320, helical axial images of the chest were obtained utilizing the pulmonary embolus protocol. Maximal intensity projections and sagittal and coronal reformats were viewed on an independent 3D workstation. IV contrast was administered without complication. Automated exposure control was utilized for the study. A dose lowering technique was utilized adhering to the principles of ALARA. CT DOSE: 331.82 mGy.cm FINDINGS: No pulmonary emboli are identified. The heart is mildly enlarged. There is extensive coronary artery calcification. There is no thoracic or dissection. No enlarged thoracic lymph nodes are noted. Moderate left lower lobe airspace opacity is noted. There is mild right lower lobe airspace opacity. Hyperdensities within the left lower lobe and right middle lobe are unchanged from CT of February 17, 2017. There has been interval development of a 4.7 x 21.6 cm branching tubular opacity within the right lower lobe. Secretions and mucoid impaction within the left lower lobe are noted. There is no pneumothorax or pleural effusion. Old bilateral rib fractures are noted. Postoperative fin dings involving the stomach are noted. There are multiple locules of extraluminal gas within the right upper quadrant which are partially imaged on this exam. These are located anterior and inferior to the hepatic flexure. IMPRESSION: 1. No pulmonary emboli identified. 2. Bilateral lower lobe airspace opacities, greater on the left. The findings favor pneumonia, potentially on the basis of aspiration. 3. Interval development of a branching tubular structure within the right lower lobe which favors mucoid impacted bronchi. A neoplastic process is considered less likely however a follow-up chest CT in 3 months is recommended. 4. Multiple locules of extraluminal gas within the right upper quadrant. These are nonspecific and partially imaged on this exam. This could be correlated with abdominal pain and CT of the abdomen and pelvis as indicated. Electronically signed by: Ned Lassiter M.D. 11/28/2018 11:18 PM ECG Data Attestation: I personally reviewed and interpreted this ECG as follows: Indication: weakness Rate (beats per minute): 98 Rhythm: sinus rhythm Findings: + PAC; no ST elevation Comparison ECG Date: from (04/05/17) Change: no significant change Blood Pressure Blood Pressure Findings: Normal blood pressure Blood Pressure Disposition: did not require urgent referral MDM Narrative Patient is a 88-year-old gentleman past medical history of aspiration pneumonia due to swallowing issues, CVA, hypertension, bladder cancer with urostomy presenting today stating this afternoon begin develop some chills and fatigue with some productive cough. Seen in urgent care where he had a near syncopal event with hypotension. Patient states he feels improved now. Was given some fluids prior to arrival. Denies chest pain or any pain overall. Denies change in urostomy output. Concern for possible aspiration pneumonia. Patient's blood pressure is normal here and he is afebrile although he feels well warm and is flushed in appearance. EKG and troponin were completed as well as basic laboratory studies. Lactate and culture was sent. Chest x-ray obviously completed. D-dimer sent to help exclude PE. Patient does have an acute leukocytosis of 13.8 as well as concerning findings for lower lobe infiltrates. Penicillin allergy is noted. Positive d-dimer so a CT scan was complete and discussion with the patient to exclude possible life-threatening pathology of pulmonary embolism. This was negative for PE. LLL PNA noted. Given a dose of clindamycin given prior allergies. Given the near syncopal event and is other comorbidities they feel more comfortable staying in the hospital discussed with the [facility] hospitalist for observation overnight. Patient has a benign abdomen without any significant symptoms located here will defer additional imaging of the abdomen pelvis given incidental CT note of nonspecific gas locules . Did complain of a slight headache prior to admission and does not appear meningitic. Do not believe any additional imaging here. Given some Tylenol. Patient resting comfortably in no distress. Impression & Plan LLL pneumonia, Near syncope Discharge Plan Visit Data Chief Complaint: Illness ED Provider: Barrington Aparicio Discharge Problem: LLL pneumonia, Near syncope Patient Disposition: Being Evaluated by Hospitalist Forms Stand Alone Forms: My [facility] [employer] Prescriptions Prescriptions: No Action sennosides [senna] 8.6 mg Tablet 8.6 mg PO BID RF: 0 prednisone 5 mg tablet 5 mg PO BID RF: 0 magnesium oxide 500 mg Tablet 500 mg PO DAILY RF: 0 hydroxychloroquine 200 mg tablet 200 mg PO BID RF: 0 Referrals Referrals: Bret Nash MD [Primary Care Provider] - Discharge Problem: LLL pneumonia Qualifiers: Pneumonia type: aspiration pneumonia Aspiration pneumonia type: unspecified Qualified Code(s): J69.0 - Pneumonitis due to inhalation of food and vomit The scribe's documentation has been prepared under my direction and personally reviewed by me in its entirety. I confirm that the note above accurately reflects all work, treatment, procedures, and medical decision making performed by me.
[2018-11-29] MEDS ORDERED: SODIUM CHLORIDE 0.9% 500 ML IV SCH (02:30)
[2018-11-29] MEDS ORDERED: ONDANSETRON INJ 2 MG/ML 2 ML VIAL IV PRN (03:24)
[2018-11-29] MEDS ORDERED: NITROGLYCERIN SL 0.4 MG/TAB TAB SL PRN (03:24)
[2018-11-29] MEDS ORDERED: ACETAMINOPHEN 325 MG TAB PO PRN (03:24)
[2018-11-29] MEDS ORDERED: SODIUM CHLORIDE 0.9% 1000ML 1,000 ML IV SCH (03:24)
[2018-11-29] MEDS ORDERED: POLYETHYLENE (MIRALAX) 17 GM PACK PO PRN (03:24)
[2018-11-29] MEDS ORDERED: LEVOFLOXACIN CONSULT ACTIVE PRN (03:31)
[2018-11-29] MEDS ORDERED: LEVOFLOXACIN/D5W 750 MG/150 ML BAG IV SCH (04:00)
[2018-11-29] MEDS: HYDROCORTISONE SOD 50 MG in SYRINGE 0 ML IV SCH ×2 (04:17→10:39)
[2018-11-29] MEDS: HEPARIN SOD 5,000 UNIT/0.5 ML VIAL SQ SCH ×3 (05:39→20:24)
--- NOTE | 2018-11-29 05:52 | History and Physical Report ---
DATE OF ADMISSION: 11/29/2018 CHIEF COMPLAINT: Fever, cough, and dizziness. 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 History of aspiration pneumonia in the past, allergic to Zosyn, was treated with clindamycin and once with Invanz. Presents with cough and fever. The patient is supposed to be on a mechanical soft diet, but he says he is eating a regular diet, but chews very well. He gets coughing spells once in a while, but today he was coughing up greenish phlegm and was having fever and feeling dizzy and went to urgent care and was found to have hypotension and was advised to come here. His initial blood pressure was okay here, but later dropped down and improved with fluids. Currently resting comfortably and hemodynamically stable. Had some headache in the morning, but no headaches now, no blurred visions, no runny nose, no sore throat. Denies any chest pain. Has some shortness of breath now. Denies any abdominal pain, no nausea, no vomiting. His ileal conduit is working fine. He is constipated chronically and he has stool softeners. No blood in the stools. No lower extremity swelling, no rash. ALLERGIES: TO ZOSYN, SULFA ANTIBIOTICS, PROPOXYPHENE. PAST MEDICAL HISTORY: As mentioned above. PAST SURGICAL HISTORY: Biopsy of prostate, bladder instillation of anticarcinogenic agent, colonoscopy with lesion removal, cystoscopy of the bladder, cystourethroscopy with fulguration of the large bladder tumor, exploration of the abdomen, freeing of abdominal adhesions, hemorrhoidectomy x2, laparoscopic cholecystectomy, laser trabeculoplasty, Mohs surgery, proctosigmoidoscopy, tonsillectomy, cystectomy with complete ureteroileal conduit, cataract surgery, partial gastrectomy, inguinal hernia repair. MEDICATIONS: Magnesium 500 mg p.o. daily, Plaquenil 200 mg p.o. b.i.d., triamcinolone apply to affected area b.i.d. p.r.n., prednisone 5 mg p.o. b.i.d., probiotic capsule t.i.d., Motrin p.r.n., Senokot-S b.i.d., Ensure p.o. t.i.d. FAMILY HISTORY: Significant for father has heart disorder, hypertension; mother has heart disorder, diabetes; sister has diabetes; maternal uncle has lung cancer. SOCIAL HISTORY: , lives with his . Former smoker, quit in 1967. Alcohol occasional. No drug use. REVIEW OF SYSTEMS: As per HPI. Rest of review of systems negative. PHYSICAL EXAMINATION: GENERAL: The patient is old and frail, not in acute distress. VITAL SIGNS: Temperature 36.1, pulse 81, respiratory rate 20, blood pressure 92/52, oxygen 92% on room air. HEENT: No pallor, no icterus. Pupils equal, round, reactive to light. NECK: No JVD, no neck masses, no carotid bruit. CARDIOVASCULAR: S1, S2 heard, regular rate and rhythm. No murmur, no gallop. RESPIRATORY SYSTEM: Normal AP diameter. No accessory muscle use. Bilateral rhonchi heard. No wheezing. ABDOMEN: Soft, bowel sounds present. Nontender. Ileal conduit bag seen. No distention. CENTRAL NERVOUS SYSTEM: Nonfocal. EXTREMITIES: No edema, no erythema. LABORATORY DATA: WBC 13.8, hemoglobin 12.5, hematocrit 38.7, platelets 197. PT 10.9, INR 1.1. Point of care D-dimer greater than 450. Sodium 140, potassium 3.9, chloride 107, bicarbonate 25, BUN 32, creatinine 1.07, serum glucose 89. Lactate 1.5, calcium 8.5, total bilirubin 0.5, AST 25, ALT 26, alkaline phosphatase 65, troponin I 0.035. Lipase 101. Urinalysis negative for nitrate and leukocyte esterase. IMAGING DATA: CT of the chest, no PE, bilateral lower lobe airspace opacities, greater on the left. The findings favor pneumonia potentially on the basis of aspiration. Interval development of branching tubular structure in the right lower lobe which favors a mucoid-impacted bronchi. A neoplastic process is considered less likely; however, a followup CT chest in 3 months is recommended. Multiple locus of extraluminal gas in the right upper quadrant region. These are nonspecific and partially imaged on this exam. This could be correlated with abdominal pain and CT of the abdomen and pelvis is indicated. Chest x-ray, bibasilar opacities, atelectasis versus pneumonia. EKG: Sinus rhythm with PACs at rate of 98, right bundle branch block. Nonspecific T-wave abnormalities. ASSESSMENT AND PLAN: This is an 88-year-old male who presents with possible aspiration pneumonia. 1. Aspiration pneumonia, hypotension. Lactate is normal. Has white count, possible sepsis. We will give IV fluids at 500 mL bolus and IV normal saline 125 mL per hour, IV clindamycin and IV Levaquin. Follow the cultures. Placed on clear liquid diet. Re evaluation for aspiration. Nebs p.r.n. Closely monitor in the tele floor. 2. Questionable mucoid impaction of the bronchi, tubular structure in the right lower lobe. Followup CT scan in 3 months. Will consult pulmonary for possible bronchoscopy. 3. Multiple locus of extraluminal gas in the right upper quadrant, seems nonspecific. We will get a CAT scan of the abdomen and pelvis for further delineation. The patient is asymptomatic. Antibiotics as above. 4. History of rheumatoid arthritis. Chronically on prednisone 5 mg b.i.d. which we will hold and place him on stress dose steroids. We will hold Plaquenil for now. 5. Hypertension, not on any medications, currently hypotensive. We will monitor. 6. Constipation, continue home stool softeners. 7. History of bladder cancer status post surgery. 8. History of skin cancer status post surgery. 9. History of tobacco use. 10. History of chronic anemia, hemoglobin at baseline. 11. Deep venous thrombosis prophylaxis. We placed him on heparin subcutaneously. 12. Disposition: We will closely monitor in tele floor. Level 1 full code. MTDD
[2018-11-29] MEDS: CLINDAMYCIN 600 MG in DEXTROSE 5% 50 ML IV SCH ×3 (06:17→20:32)
--- NOTE | 2018-11-29 06:50 | CT Scan Report ---
CT SCAN OF THE ABDOMEN AND PELVIS WITHOUT CONTRAST CLINICAL HISTORY: Abnormal chest CT demonstrating extraluminal gas. COMPARISON STUDY: CT scan dated 11/28/2018 TECHNIQUE: CT scan of the abdomen and pelvis was performed from the lung bases to the proximal femurs . Images are reviewed in the axial, sagittal, and coronal planes. IV contrast was not administered fo r this examination. A dose lowering technique was utilized adhering to the principles of ALARA. CT DOSE: 326.31 mGy.cm FINDINGS: Lower chest: There are left lower lobe consolidative changes with areas of mucous plugging. There are scattered parenchymal calcifications. Minor right basilar airspace opacities are also present. Aspir ation must be considered. Liver: The unenhanced liver is normal in size, contour, and attenuation. There is no intrahepatic rey iary ductal dilatation. Gallbladder: Surgically absent Spleen: Normal in size and attenuation. Pancreas: Unremarkable. Adrenal glands: Unremarkable. Kidneys: There is contrast excretion secondary to a prior CT scan of the chest. There are renal hypod ensities statistically representing cysts. These measure up to 2 cm in diameter. Bowel: There are no transition zones indicate bowel obstruction. There are postsurgical changes invol ving the stomach and colon. There is a right lower quadrant urostomy. There is evidence for fecal ret ention. 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 Peritoneum: There is no ascites. Several tiny air bubbles appear to lie extrinsic to the colonic wall . Vasculature: The abdominal aorta is normal in course and caliber. Adenopathy: None. Pelvic viscera: Patient appears to be status post a prior cystectomy with a diverting urostomy Skeletal structures: No destructive osseous lesions are seen. IMPRESSION: 1. Postsurgical changes involving the stomach and colon 2. Postsurgical changes are prior cystectomy with a right lower quadrant urostomy 3. Colonic pneumatosis intestinalis. Multiple tiny locules of air appear to be extraluminal/intraperi toneal. Correlation with the patient's symptoms will be necessary, as pneumatosis intestinalis can be benign and associated with benign free intraperitoneal air 4. Fecal retention 5. Bibasilar airspace opacities left greater than right. Pneumonia/aspiration was be considered. Electronically signed by: Avtar Guerrero M.D. 11/29/2018 6:48 AM
[2018-11-29 07:25] LABS: Hematocrit (blood only) 38.2 % (42-52); Hemoglobin 12.1 g/dL (14.0-18.0); Mean Corpuscular Hgb Conc 31.7 g/dL (32-36); Mean Corpuscular Volume 92.3 fL (80-100); Mean Platelet Volume 9.6 fL (7.4-10.4); Platelet Count 192 K/uL (130-400); RDW Coefficient of Variation 14.4 % (11.5-14.5); RDW Standard Deviation 49.1 fL (36.4-46.3); Red Blood Count 4.14 M/uL (4.7-6.1); White Blood Count 14.18 K/uL (4.8-10.8)
[2018-11-29 07:55] LABS: BUN Creatinine Ratio 27.8 (10-20); Calcium 8.3 mg/dl (8.5-10.1); Creatinine Clr Calc Pharmacy 52.4 ml/min; Est GFR (African American) 78.6; Est GFR (Non-African American) 67.8; Magnesium 2.2 mg/dl (1.8-2.4); Potassium 4.3 mmol/L (3.5-5.1)
[2018-11-29 08:03] LABS: Basophils # (auto) 0.01 K/uL (0-0.2); Basophils % (auto) 0.1 %; Echinocytes 1+; Eosinophils # (auto) 0.08 K/uL (0-0.5); Eosinophils % (auto) 0.6 %; Immature Granulocytes # (auto) 0.07 K/uL (0.00-0.02); Immature Granulocytes % (auto) 0.5 %; Lymphocytes # (auto) 0.85 K/uL (1.2-3.4); Monocytes # (auto) 0.53 K/uL (0.11-0.59); Monocytes % (auto) 3.7 %; Neutrophils # (auto) 12.64 K/uL (1.4-6.5); Neutrophils % (auto) 89.1 %
[2018-11-29] MEDS: MAGNESIUM OXIDE 400 MG TAB PO SCH (08:36)
[2018-11-29] MEDS: SENNA 8.6 MG TAB PO SCH ×2 (08:36→20:24)
--- NOTE | 2018-11-29 13:20 | Hospitalist Progress Note ---
Date of Service November 29, 2018 Assessment & Plan (1) Aspiration pneumonia of both lower lobes: This is an 88-year-old male who presents aspiration pneumonia of both lower lobes Aspiration Pneumonia of Both Lower Lobes of the Lungs possible sepsis on point of arrival -received IV fluids and IV antibiotics on presentation to the ED -CTA scan 1. No pulmonary emboli identified. 2. Bilateral lower lobe airspace opacities, greater on the left. The findings favor pneumonia, potentially on the basis of aspiration. 3. Interval development of a branching tubular structure within the right lower lobe which favors mucoid impacted bronchi. A neoplastic process is considered less likely however a follow-up chest CT in 3 months is recommended. 4. Multiple locules of extraluminal gas within the right upper quadrant. These are nonspecific and partially imaged on this exam. This could be correlated with abdominal pain and CT of the abdomen and pelvis as indicated. -was started on IV clindamycin and IV Levaquin on presentation -as per pulmonary physician there is no need for bronchoscopy at this time -Speech therapist assessed the patient and reports history of silent aspiration that as patient has no desire for feeding tube. patient has been agreeable to continuing IV antibiotics in the hospital for now for aspiration pneumonia. speech therapist will recommend advancing the diet from clear liquids -sputum and blood cultures pending -will determine antibiotic type and course based on microbiology and clinical response continue IV clindamycin and IV levaquin for now abnormal CT finding CT abdomen 1. Postsurgical changes involving the stomach and colon 2. Postsurgical changes are prior cystectomy with a right lower quadrant urostomy 3. Colonic pneumatosis intestinalis. Multiple tiny locules of air appear to be extraluminal/intraperitoneal. Correlation with the patient's symptoms will be necessary, as pneumatosis intestinalis can be benign and associated with benign free intraperitoneal air 4. Fecal retention 5. Bibasilar airspace opacities left greater than right. Pneumonia/aspiration was be considered. -no acute abdomen symptoms and normal abdomen exam Initial hypotension -blood pressure improved with IV fluids History of rheumatoid arthritis -was given dose of hydrocortisone as stress dose steroid. will stop further doses -resume prednisone 5 mg b.i.d. -hold Plaquenil for now. Constipation -continue home stool softeners. History of bladder cancer status post surgery in the past History of skin cancer status post surgery in the past History of tobacco use. History of chronic anemia Deep venous thrombosis prophylaxis: heparin subcutaneously. Code Status Do not resuscitate / DO NOT INTUBATE : [phone] Subjective Patient seen and examined at the bedside. currently the blood pressure is stable off IV fluids. Patient denies acute shortness of breath. no chest pain. no abdomen pain. we had discussed when patient also had at bedside and they elaborated that patient has history of aspiration before in the past. Speech therapist assessed the patient and reports history of silent aspirationthat as patient has no desire for feeding tube. patient has been agreeable to continuing IV antibiotics in the hospital for now for aspiration pneumonia. speech therapist will recommend advancing the diet from clear liquids clarified with oatient about code status and he reports Do not resuscitate / DO NOT INTUBATE Physical Exam Constitutional: comfortable Eyes: PERRL, conjunctivae normal, anicteric sclerae EOM intact bilaterally ENMT: external ear and nose normal, oropharynx normal Neck: trachea midline, no thyromegaly normal visual inspection Respiratory: normal respiratory effort Cardiovascular: Rate/Rhythm: regular rate and + bradycardic Gastrointestinal (Abdomen): normal bowel sounds, soft, nontender, no hepatosplenomegaly Musculoskeletal: Head/Neck/Chest: normocephalic and head atraumatic Neurologic: PERRL, EOMI, accommodation nl, no face palsy, no dysarthria CN's II-XI intact bilaterally Psychiatric: A+Ox3, euthymic affect Results & Data Vital Signs (Past 12 Hours) Vital Signs Temp Pulse Pulse Resp BP BP BP 11/29/18 10:56 36.6 C 64 20 115/74 11/29/18 08:00 63 11/29/18 07:48 36.3 C L 74 19 123/76 11/29/18 05:19 82 11/29/18 03:25 36.5 C 74 18 97/60 L 11/29/18 03:03 77 21 96/53 L Pulse Ox 11/29/18 10:56 94 11/29/18 08:00 11/29/18 07:48 100 11/29/18 05:19 11/29/18 03:25 92 11/29/18 03:03 93
--- NOTE | 2018-11-29 15:27 | Pulmonary Consultation ---
Date of Consultation November 29, 2018 Assessment & Plan (1) Aspiration pneumonia of both lower lobes: pneumonia likely aspiration. continue antibiotics for 7 days. small area of mucoid impaction. marlin try flutter valve. no need for bronchoscopy repeat CT in 6-12 weeks to confirm clearance OOB as much as possible History of Present Illness Attending Physician: Felipe Person MD History of Present Illness 88 y/o male with a history of bladder CA and previous trouble with aspiration, RA presented yesterday with cough and fever. initially went to urgent care but they sent him to the ED. He said cough was productive of green sputum. Intially he was not sob but then becausem more short of breath. +fevers. no sick contacts. He says that since he has been here he is starting to feel better. Allergies Allergy/AdvReac Type Severity Reaction Status Date / Time piperacillin Allergy Severe SHORTNESS Verified 11/29/18 00:09 OF BREATH tazobactam Allergy Severe SHORTNESS Verified 11/29/18 00:09 OF BREATH Sulfa (Sulfonamide Allergy Unknown SWELLING Verified 11/29/18 00:09 Antibiotics) propoxyphene AdvReac Unknown BLOOD Verified 11/29/18 00:09 PRESSURE DROPS Home Medications Home Medications Medication Instructions Recorded Confirmed Type hydroxychloroquine 200 mg PO BID 11/29/18 11/29/18 History magnesium oxide 500 mg PO DAILY 11/29/18 11/29/18 History prednisone 5 mg PO BID 11/29/18 11/29/18 History sennosides [senna] 8.6 mg PO BID 11/29/18 11/29/18 History Patient History Medical History Aspiration pneumonia (Acute) Social History Preferred Language: Telugu Communication Ability: Effective Stogy Maker Required: No Beliefs That Will Affect Care: None Current Living Situation: Spouse Other Information That Helps Us Care for You: No Feels Safe at Home: Yes Safety Concerns: Feels Safe At This Time Smoking Status: Former smoker Do You Dip or Chew Tobacco: No Second Hand Exposure: No Tobacco Cessation Education Requested by Patient: No Hx Alcohol Use: Yes Alcohol type: beer Hx Substance Use: No Immunizations: minimal smoking history 2 pack years in the 1950s Review of Systems Review of Systems: Constitutional: + fevers no chills no weight loss Eyes: no blurry or double vision EENT: no sore throat, + congestion Respiratory: + cough + shortness of breath Cardiovascular: no chest pain no palpitations GI: no abdominal pain, no nausea, no vomiting, no diarrhea, no constipation Gu: no dysuria, no frequency MSK: no joint pain, no muscle aches Skin: no rash Neuro: no headache, no dizziness, no focal weakness Endocrine: no heat or cold intolerance heme: no easy bruising, no lymphadenopathy Psych: no depression, no anxiety Physical Exam Physical Exam: Constitutional: Comfortable NAD thin HEENT: normocephalic atraumatic. MMM. no cervical lymphadenopathy CV: RRR nl s1,s2 no murmurs rubs or gallops Lungs: crackles bilaterally. no accessory muscle use Abd: soft nontender nondistended. normal bowel sounds. urostomy Ext: no edema. no cyanosis, no clubbing Skin: warm dry Neuro: alert and oriented. moving all extremities Psych: normal mood and affect Results & Data Vital Signs (Past 12 Hours) Vital Signs Temp Pulse Pulse Resp BP BP Pulse Ox 11/29/18 10:56 36.6 C 64 20 115/74 94 11/29/18 08:00 63 11/29/18 07:48 36.3 C L 74 19 123/76 100 11/29/18 05:19 82 11/29/18 03:25 36.5 C 74 18 97/60 L 92 Laboratory Results Laboratory Results - last 24 hr 11/28/18 11/28/18 11/28/18 21:05 21:09 21:09 WBC 13.80 H RBC 4.23 L Hgb 12.5 L Hct 38.7 L MCV 91.5 MCH 29.6 MCHC 32.3 RDW Std Deviation 48.1 H RDW Coeff of Angela 14.3 Plt Count 197 MPV 9.5 Immature Gran % (Auto) 0.6 Neut % (Auto) 86.6 Lymph % (Auto) 7.2 Winkler % (Auto) 4.9 Eos % (Auto) 0.6 Baso % (Auto) 0.1 Immature Gran # (Auto) 0.08 H Neut # (Auto) 11.95 H Lymph # (Auto) 0.99 L Winkler # (Auto) 0.68 H Eos # (Auto) 0.08 Baso # (Auto) 0.02 Echinocytes PT 10.9 INR 1.1 POC D-Dimer Sodium Potassium Chloride Carbon Dioxide Anion Gap BUN Creatinine Est Cr Clr Drug Dosing Est GFR ( Amer) Est GFR (Non-Af Amer) BUN/Creatinine Ratio Glucose Lactate Calcium Magnesium Total Bilirubin AST ALT Alkaline Phosphatase Troponin I Total Protein Albumin Globulin Albumin/Globulin Ratio Lipase Urine Color Dark Yellow Urine Appearance Cloudy A Urine pH >= 9.0 H Ur Specific Regent 1.015 Urine Protein 1+ H Urine Glucose (UA) Negative Urine Ketones Negative Urine Blood Negative Urine Nitrite Negative Urine Bilirubin Negative Urine Urobilinogen Negative Ur Leukocyte Esterase Negative Urine WBC (Auto) 10-30 H Urine RBC (Auto) 5-10 H U Hyaline Cast (Auto) 1-5 U Epithel Cells (Auto) >30 H Urine Bacteria (Auto) 4+ H Ur Renal Epithelial Cell 0-5 Triple Phos Crystals Present A 11/28/18 11/28/18 11/28/18 21:09 21:09 21:13 WBC RBC Hgb Hct MCV MCH MCHC RDW Std Deviation RDW Coeff of Angela Plt Count MPV Immature Gran % (Auto) Neut % (Auto) Lymph % (Auto) Winkler % (Auto) Eos % (Auto) Baso % (Auto) Immature Gran # (Auto) Neut # (Auto) Lymph # (Auto) Winkler # (Auto) Eos # (Auto) Baso # (Auto) Echinocytes PT INR POC D-Dimer > 450 H* Sodium 140 Potassium 3.9 Chloride 107 Carbon Dioxide 25 Anion Gap 8.0 BUN 32 H Creatinine 1.07 Est Cr Clr Drug Dosing 51.9 Est GFR ( Amer) 72.5 Est GFR (Non-Af Amer) 62.5 BUN/Creatinine Ratio 29.7 H Glucose 89 Lactate 1.5 Calcium 8.5 Magnesium Total Bilirubin 0.5 AST 25 ALT 26 Alkaline Phosphatase 65 Troponin I 0.035 Total Protein 5.8 L Albumin 2.6 L Globulin 3.2 Albumin/Globulin Ratio 0.8 L Lipase 101 Urine Color Urine Appearance Urine pH Ur Specific Regent Urine Protein Urine Glucose (UA) Urine Ketones Urine Blood Urine Nitrite Urine Bilirubin Urine Urobilinogen Ur Leukocyte Esterase Urine WBC (Auto) Urine RBC (Auto) U Hyaline Cast (Auto) U Epithel Cells (Auto) Urine Bacteria (Auto) Ur Renal Epithelial Cell Triple Phos Crystals 11/29/18 11/29/18 06:57 06:57 WBC 14.18 H RBC 4.14 L Hgb 12.1 L Hct 38.2 L MCV 92.3 MCH 29.2 MCHC 31.7 L RDW Std Deviation 49.1 H RDW Coeff of Angela 14.4 Plt Count 192 MPV 9.6 Immature Gran % (Auto) 0.5 Neut % (Auto) 89.1 Lymph % (Auto) 6.0 Winkler % (Auto) 3.7 Eos % (Auto) 0.6 Baso % (Auto) 0.1 Immature Gran # (Auto) 0.07 H Neut # (Auto) 12.64 H Lymph # (Auto) 0.85 L Winkler # (Auto) 0.53 Eos # (Auto) 0.08 Baso # (Auto) 0.01 Echinocytes 1+ PT INR POC D-Dimer Sodium 139 Potassium 4.3 Chloride 108 H Carbon Dioxide 27 Anion Gap 4.0 BUN 28 H Creatinine 1.00 Est Cr Clr Drug Dosing 52.4 Est GFR ( Amer) 78.6 Est GFR (Non-Af Amer) 67.8 BUN/Creatinine Ratio 27.8 H Glucose 90 Lactate Calcium 8.3 L Magnesium 2.2 Total Bilirubin AST ALT Alkaline Phosphatase Troponin I Total Protein Albumin Globulin Albumin/Globulin Ratio Lipase Urine Color Urine Appearance Urine pH Ur Specific Regent Urine Protein Urine Glucose (UA) Urine Ketones Urine Blood Urine Nitrite Urine Bilirubin Urine Urobilinogen Ur Leukocyte Esterase Urine WBC (Auto) Urine RBC (Auto) U Hyaline Cast (Auto) U Epithel Cells (Auto) Urine Bacteria (Auto) Ur Renal Epithelial Cell Triple Phos Crystals Diagnostic Findings CT ANGIOGRAPHY OF THE CHEST, PULMONARY EMBOLUS PROTOCOL CLINICAL HISTORY: PE, +dimer COMPARISON STUDY: Chest CT February 25, 2017. Chest radiograph performed earlier today. TECHNIQUE: Following IV administration of 114 mL of Optiray-320, helical axial images of the chest were obtained utilizing the pulmonary embolus protocol. Maximal intensity projections and sagittal and coronal reformats were viewed on an independent 3D workstation. IV contrast was administered without complication. Automated exposure control was utilized for the study. A dose lowering technique was utilized adhering to the principles of ALARA. CT DOSE: 331.82 mGy.cm FINDINGS: No pulmonary emboli are identified. The heart is mildly enlarged. There is extensive coronary artery calcification. There is no thoracic or dissection. No enlarged thoracic lymph nodes are noted. Moderate left lower lobe airspace opacity is noted. There is mild right lower lobe airspace opacity. Hyperdensities within the left lower lobe and right middle lobe are unchanged from CT of February 17, 2017. There has been interval development of a 4.7 x 21.6 cm branching tubular opacity within the right lower lobe. Secretions and mucoid impaction within the left lower lobe are noted. There is no pneumothorax or pleural effusion. Old bilateral rib fractures are noted. Postoperative findings involving the stomach are noted. There are multiple locules of extraluminal gas within the right upper quadrant which are partially imaged on this exam. These are located anterior and inferior to the hepatic flexure. IMPRESSION: 1. No pulmonary emboli identified. 2. Bilateral lower lobe airspace opacities, greater on the left. The findings favor pneumonia, potentially on the basis of aspiration. 3. Interval development of a branching tubular structure within the right lower lobe which favors mucoid impacted bronchi. A neoplastic process is considered less likely however a follow-up chest CT in 3 months is recommended. 4. Multiple locules of extraluminal gas within the right upper quadrant. These are nonspecific and partially imaged on this exam. This could be correlated with abdominal pain and CT of the abdomen and pelvis as indicated. Electronically signed by: Ned Lassiter M.D. 11/28/2018 11:18 PM
[2018-11-29] MEDS: predniSONE 5 MG TAB PO SCH (20:24)
[2018-11-29] MEDS ORDERED: COUGH DROP (SUGAR FREE) LOZ 24 LOZ/1 BOX BUCCAL PRN (22:47)
[2018-11-30] MEDS: CLINDAMYCIN 600 MG in DEXTROSE 5% 50 ML IV SCH ×2 (05:33→14:40)
[2018-11-30] MEDS: HEPARIN SOD 5,000 UNIT/0.5 ML VIAL SQ SCH (05:34)
[2018-11-30 06:45] LABS: Basophils # (auto) 0.01 K/uL (0-0.2); Basophils % (auto) 0.1 %; Eosinophils # (auto) 0.08 K/uL (0-0.5); Eosinophils % (auto) 0.8 %; Hematocrit (blood only) 35.9 % (42-52); Hemoglobin 11.5 g/dL (14.0-18.0); Immature Granulocytes # (auto) 0.04 K/uL (0.00-0.02); Immature Granulocytes % (auto) 0.4 %; Lymphocytes # (auto) 0.93 K/uL (1.2-3.4); Lymphocytes % (auto) 9.9 %; Mean Corpuscular Volume 90.7 fL (80-100); Mean Platelet Volume 9.8 fL (7.4-10.4); Monocytes % (auto) 4.2 %; Neutrophils # (auto) 7.98 K/uL (1.4-6.5); Neutrophils % (auto) 84.6 %; Platelet Count 195 K/uL (130-400); RDW Coefficient of Variation 14.3 % (11.5-14.5); RDW Standard Deviation 47.2 fL (36.4-46.3); Red Blood Count 3.96 M/uL (4.7-6.1); White Blood Count 9.44 K/uL (4.8-10.8)
[2018-11-30 07:31] LABS: BUN Creatinine Ratio 26.6 (10-20); Calcium 8.7 mg/dl (8.5-10.1); Creatinine Clr Calc Pharmacy 83.2 ml/min; Est GFR (African American) 103.4; Est GFR (Non-African American) 89.2; Magnesium 2.1 mg/dl (1.8-2.4)
[2018-11-30] MEDS: MAGNESIUM OXIDE 400 MG TAB PO SCH (09:01)
[2018-11-30] MEDS: predniSONE 5 MG TAB PO SCH (09:01)
[2018-11-30] MEDS: SENNA 8.6 MG TAB PO SCH (09:01)
[2018-11-30 11:27] VITALS: PULSE 70; TEMP 97.5; O2SAT 93
--- NOTE | 2018-11-30 12:47 | Infectious Disease Consult ---
Date of Consultation November 30, 2018 Assessment & Plan (1) Aspiration pneumonia of both lower lobes: clinically improved on clinda, an convert to po, 300mg po tid to complete 7 days total. suspect blood culture is skin contamaninant. ok for d/c from ID standpoint. History of Present Illness Attending Physician: Razia Campos DO pt admitted with sob and hotn from urgent care center. afebrile since admission. wbc intially 11 in ER, now 9.4 UA 10-30 wbc with +4 bacteria, culture contaminant, no gu symptoms. blood cultures done in ER 1/2 staph species, primary team spoke with micro, M[employer] W[employer]ER. repeat cultures pending. CTA in ER showed mucus plugging and left infiltrate, was eval by pulm and placed on clinda, tolerating well. concern for aspiration, is supposed to be on soft diet per chart but has been eating regular diet. On my exam he states he is feeling significantly better, no f/c. no cough, sob, cp, wheeze, no abd pain, no n/v/d. asking to go home. Allergies Allergy/AdvReac Type Severity Reaction Status Date / Time piperacillin Allergy Severe SHORTNESS Verified 11/29/18 00:09 OF BREATH tazobactam Allergy Severe SHORTNESS Verified 11/29/18 00:09 OF BREATH Sulfa (Sulfonamide Allergy Unknown SWELLING Verified 11/29/18 00:09 Antibiotics) propoxyphene AdvReac Unknown BLOOD Verified 11/29/18 00:09 PRESSURE DROPS Home Medications Home Medications Medication Instructions Recorded Confirmed Type hydroxychloroquine 200 mg PO BID 11/29/18 11/29/18 History magnesium oxide 500 mg PO DAILY 11/29/18 11/29/18 History prednisone 5 mg PO BID 11/29/18 11/29/18 History sennosides [senna] 8.6 mg PO BID 11/29/18 11/29/18 History Patient History Medical History Aspiration pneumonia (Acute) Social History Preferred Language: Persian Communication Ability: Effective Bisque Kiln Placer Required: No Beliefs That Will Affect Care: None Current Living Situation: Spouse Other Information That Helps Us Care for You: No Feels Safe at Home: Yes Safety Concerns: Feels Safe At This Time Smoking Status: Former smoker Do You Dip or Chew Tobacco: No Second Hand Exposure: No Tobacco Cessation Education Requested by Patient: No Hx Alcohol Use: Yes Alcohol type: beer Hx Substance Use: No Review of Systems Review of Systems: All systems reviewed & are unremarkable except as noted in HPI & below Physical Exam Constitutional: WD/WN, vitals as above Eyes: PERRL, conjunctivae normal, anicteric sclerae ENMT: external ear and nose normal, oropharynx normal Neck: normal visual inspection Respiratory: normal respiratory effort, lungs clear to auscultation Cardiovascular: RRR, no murmur, no edema Gastrointestinal (Abdomen): normal bowel sounds, soft, nontender, no hepatosplenomegaly Musculoskeletal: no cyanosis or clubbing, extremities motor strength 5/5 Skin: no rashes, warm and dry Psychiatric: A+Ox3, euthymic affect Results & Data Vital Signs (Past 12 Hours) Vital Signs Temp Pulse Pulse Pulse Resp BP Pulse Ox 11/30/18 11:26 36.4 C L 70 18 143/82 H 93 11/30/18 08:00 58 L 11/30/18 07:17 36.6 C 62 19 138/80 96 11/30/18 03:10 36.6 C 66 17 130/76 97 Laboratory Results Microbiology 11/28/18 21:43 Blood Aerobic Blood Culture - Preliminary Staphylococcus species 11/28/18 21:43 Blood Anaerobic Blood Culture - Preliminary Staphylococcus species 11/29/18 03:30 Sputum, Expectorated Gram Stain - Final 11/29/18 03:30 Sputum, Expectorated Sputum Culture - Preliminary Gram negative bacilli 11/29/18 16:38 Blood Anaerobic Blood Culture - Preliminary 11/28/18 21:09 Blood Aerobic Blood Culture - Preliminary No growth in Aerobic bottle after 24 hours. 11/28/18 21:09 Blood Anaerobic Blood Culture - Preliminary No growth in Anaerobic bottle after 24 hours. 11/28/18 21:05 Urine,Clean Catch Urine Culture - Final Three types of organisms present, all high counts. Repeat collection recommended. No further identifications or sensitivities to follow.
--- NOTE | 2018-11-30 15:00 | Discharge Summary ---
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 History of aspiration pneumonia in the past, allergic to Zosyn, was treated with clindamycin and once with Invanz. Presents with cough and fever. The patient is supposed to be on a mechanical soft diet, but he says he is eating a regular diet, but chews very well. He gets coughing spells once in a while, but today he was coughing up greenish phlegm and was having fever and feeling dizzy and went to urgent care and was found to have hypotension and was advised to come here. His initial blood pressure was okay here, but later dropped down and improved with fluids. Currently resting comfortably and hemodynamically stable. Had some headache in the morning, but no headaches now, no blurred visions, no runny nose, no sore throat. Denies any chest pain. Has some shortness of breath now. Denies any abdominal pain, no nausea, no vomiting. His ileal conduit is working fine. He is constipated chronically and he has stool softeners. No blood in the stools. No lower extremity swelling, no rash. Admission Exam Per Admitting Provider PHYSICAL EXAMINATION: GENERAL: The patient is old and frail, not in acute distress. VITAL SIGNS: Temperature 36.1, pulse 81, respiratory rate 20, blood pressure 92/52, oxygen 92% on room air. HEENT: No pallor, no icterus. Pupils equal, round, reactive to light. NECK: No JVD, no neck masses, no carotid bruit. CARDIOVASCULAR: S1, S2 heard, regular rate and rhythm. No murmur, no gallop. RESPIRATORY SYSTEM: Normal AP diameter. No accessory muscle use. Bilateral rhonchi heard. No wheezing. ABDOMEN: Soft, bowel sounds present. Nontender. Ileal conduit bag seen. No distention. CENTRAL NERVOUS SYSTEM: Nonfocal. EXTREMITIES: No edema, no erythema. Principal Diagnosis aspiration pneumonia Discharge Data Allergies Allergy/AdvReac Type Severity Reaction Status Date / Time piperacillin Allergy Severe SHORTNESS Verified 11/29/18 00:09 OF BREATH tazobactam Allergy Severe SHORTNESS Verified 11/29/18 00:09 OF BREATH Sulfa (Sulfonamide Allergy Unknown SWELLING Verified 11/29/18 00:09 Antibiotics) propoxyphene AdvReac Unknown BLOOD Verified 11/29/18 00:09 PRESSURE DROPS Consultations 11/28/18 23:31 ED Decision to Admit Stat 11/29/18 03:24 Consult Case Management - Discharge Planning Routine 11/29/18 08:00 Consult Casino Cashier Manager Routine 11/30/18 10:30 Consult Infectious Diseases Routine Ordered Studies 11/28/18 21:46 CT angio chest PE protocol Stat 11/29/18 03:24 CT abd pelvis wo con Urgent Hospital Course (1) Aspiration pneumonia of both lower lobes: 88-year-old man with history of rheumatoid arthritis presented with cough fevers and chills in addition to lightheadedness. His fever had been going on for approximately a day and he was coughing up phlegm. He was admitted to the hospitalist service and placed on IV clindamycin and IV Levaquin for suspected aspiration pneumonia. Hypotension improved with IV fluids and white blood cell count improved with antibiotics. Pulmonary was consulted after a CT scan of the chest revealed interval development of a branching tubular structure within the right lower lobe favoring choroid impacted bronchus. Repeat CT scan in 6 to 12 weeks is recommended to aid sure this is resolved as a neoplastic process, although considered less likely, cannot be ruled out. Additionally multiple locules of extraluminal gas within the right upper quadrant was seen prompting a CT of the abdomen and pelvis without contrast. This revealed postsurgical changes in the stomach: And bladder area as well as colonic pneumatosis intestinalis. The patient denied any abdominal pain or symptoms related to intraperitoneal free air and this was considered benign. Imaging did reveal bilateral airspace opacities consistent with pneumonia/aspiration. Ambulation was recommended. Infectious disease was consulted after a blood culture became positive. However, this was suspected to be a contaminant from skin. Repeat blood cultures were negative at time of discharge and he was clinically doing well. Additionally a urinalysis appeared to be consistent with UTI, and the patient was asymptomatic. Urine culture revealed a possible contaminant. At time of discharge she was hemodynamically stable and afebrile and oxygenating well on room air. He was evaluated by PT and OT and felt to be independent and functioning at baseline without further PT or OT needs at discharge. He was tolerating p.o. without difficulty and speech pathology recommendations were made for him at discharge to avoid aspiration or reflux at home. Close primary care follow-up was recommended within a week of discharge. Total Time Total Time Spent Total Time Spent (In Minutes): 60 Total Time Includes: Examination of the Patient, Discharge Planning, Medication Reconciliation and Communication With Other Providers Discharge Plan Discharge Items Patient Disposition: Home - Self-Care Reason For Visit: FEVER, COUGH, DIZZINESS Discharge Diagnosis: aspiration pneumonia Condition: Good Discharge Goals: Improve disease control Activity: Resume your previous activity Non-emergency contact: Primary Care Provider Call non-emergency contact if: you have any medication questions, your symptoms worsen, your pain is not controlled and you have a fever Follow-up/Referrals: Bret Nash MD [Primary Care Provider] - Diet: Regular Addtl Provider Instructions: Take all medications as instructed below. It is recommended that you have a chest x-ray in 4 to 6 weeks to ensure resolution of pneumonia. This can be ordered through your primary care doctor. [place] An abnormality was seen in your chest CT and a follow-up chest CT is recommended in 3 months time to ensure resolution. It is recommended that you have a hospital follow-up appointment within a week with your primary care physician. This is currently unavailable with your provider and a message has been sent for the office to call you and schedule you. Please follow aspiration and reflux precautions per speech therapy including: Stay fully alert and upright while eating Take medications using a carrier such as pudding or applesauce Good oral hygiene No straws Alternate solids and liquids while eating Keep your head of bed elevated at least 30 degrees at all times. Stay upright with meals up to at least 30 minutes after eating It was a pleasure taking care of you! Please call if you have any questions or problems. You can reach a [facility] hospitalist on duty at [facility] 24 hours a day by calling [phone]. Take care of yourself. Razia Campos, DO [facility] Hospitalist Prescriptions: New clindamycin HCl 300 mg capsule 300 mg PO TID 7 Days Qty: 21 RF: 0 Continued sennosides [senna] 8.6 mg Tablet 8.6 mg PO BID RF: 0 prednisone 5 mg tablet 5 mg PO BID RF: 0 magnesium oxide 500 mg Tablet 500 mg PO DAILY RF: 0 hydroxychloroquine 200 mg tablet 200 mg PO BID RF: 0 Stand-Alone Forms: [facility] Discharge Orders: Discharge Order (Routine); Ordered 11/30/18 Ordered By: Razia Campos Admission Data Admit Date/Time: 11/29/18 02:19 Attending Provider: Razia Campos Admit Provider: James Pedroza Primary Care Provider: Bret Nash Other Providers: James Pedroza ; Tim Tobar ; Arleth Sheriff Service: Telemetry
[2018-11-30 15:30] VITALS: BP 135/78
== END 2018-11-30 16:45 | disposition home or self-care (01) | DRG 179 ==
LOC: ED 20:01 → SUATTDRO 11-29 02:19 → 2S 11-29 02:19

== ENCOUNTER 2021-02-18 08:11 | Inpatient (IN) ==
[2021-02-18] MEDS ORDERED: ERTAPENEM SODIUM 10 ML IV STA (08:48)
[2021-02-18] MEDS ORDERED: ALBUT/IPRATROP 3MG/0.5MG NEB 3 ML VIAL NEB STA (08:48)
[2021-02-18] MEDS ORDERED: SODIUM CHLORIDE 0.9% 1000ML 500 ML IV ONE ×2 (08:48→11:40)
--- NOTE | 2021-02-18 08:54 | Emergency Department Note ---
Impression & Plan Hypoxia, SOB (shortness of breath), Wheezing, Pneumonia ED Provider Note NAME: KALANI OCONNOR AGE: 89 SEX: M : 1930 ARRIVES VIA: Ambulance INFORMANT: [Patient][ems] ED PROVIDER(S): [Raheel Ramires MD] CHIEF COMPLAINT: Short of breath HISTORY OF PRESENT ILLNESS: The patient is an 89-year-old male presents to the ER with shortness of breath. The patient had a coughing spell last night at around 1 AM, he thinks he may have aspirated. This morning, he was quite short of breath and his O2 saturation was in the mid 80s. He does not typically wear oxygen. He had a temperature of [address] F. In route to the hospital, he was given a DuoNeb which he does think helped. The patient denies any chest pain or abdominal pain. He has not had vomiting. He states the same exact thing has happened to him in the past years ago. He is very concerned about aspiration. REVIEW OF SYSTEMS: See HPI for pertinent positives and negatives. A total of ten systems were reviewed and were otherwise negative. PMHx/PSHx: See Below SOCIAL HISTORY: See Below. PHYSICAL EXAM: GENERAL: Patient is in no acute distress. HEENT: No acute trauma, normocephalic atraumatic, mucous membranes moist, no nasal congestion, no scleral icterus. NECK: No stridor, no adenopathy, no meningismus, trachea is midline. LUNGS: Crackles and wheezes bilaterally, worse on the right, no respiratory distress. HEART: Rhythm seems regular, heart sounds are quite distant. No obvious murmur. Normal rate. ABDOMEN: Soft, nontender, bowel sounds positive, no hernias, no peritonitis. EXTREMITIES: No cyanosis or edema, full range of motion of all the joints without pain or difficulty, no signs for acute trauma. NEUROLOGIC: Oriented x 3, no acute motor or sensory deficits, no focal weakness. SKIN: No rash, no jaundice, no diaphoresis. DIFFERENTIAL DIAGNOSIS: Sepsis, UTI, pneumonia, aspiration, metabolic abnormality, electrolyte abnormalities, cardiac sources, cellulitis, bacteremia, intracerebral event, toxicologic etiology, neurologic event, as well as other pathologies. EMERGENCY DEPARTMENT COURSE/PROCEDURES: ECG: Indication was shortness of breath. The ECG shows a normal sinus rhythm with a right bundle branch block. The rate is 90. There is no ST elevation, no PVCs. The QTc is 584. Continuous Cardiac Monitoring: An order was placed for continuous cardiac monitoring. The monitor shows a rate of 90 with normal sinus rhythm. Critical Care Note: I have personally spent 53 minutes of critical care time in the direct management of this patient. This includes bedside care, interpretation of diagnostic studies, and testing, discussion with consultants, patient, and family members, and other required patient management activities. This 53 minutes is in excess of all separately billable procedures. MEDICAL DECISION MAKING: There is no leukocytosis or concerning anemia. There is a normal platelet count. No coagulopathy. No significant electrolyte abnormality or kidney failure. Lactic acid level is not elevated making sepsis less likely. No concerning liver enzyme elevation. ECG shows a sinus rhythm, no acute ischemia. Cardiac enzyme testing x1 is not consistent with acute cardiac injury. Covid testing returned negative. Chest x-ray shows a bilateral lower lung pneumonia. Patient received IV saline for hydration. He was given a DuoNeb. He received IV Zofran for nausea. He was given IV ertapenem as empiric antibiotic coverage. The patient presents with hypoxia, fever and cough. He was short of breath. He appears to have pneumonia as a cause for his symptoms. Given his findings, I do think a hospital stay is warranted. I spoke to the patient and case management. The on-call hospitalist was consulted. Past Med/Surg History Medical History (Updated 02/18/21 @ 17:18 by Raheel Ramires MD) Aspiration pneumonia Social History Smoking Status: Never smoker Second Hand Exposure: No; Do You Dip or Chew Tobacco: No; Tobacco Cessation Education Requested by Patient: No Hx Alcohol Use: Yes Alcohol type: beer Hx Substance Use: No Preferred Language: Burundian Communication Ability: Effective Php Lamp Developer Required: No Beliefs That Will Affect Care: None Current Living Situation: Spouse Other Information That Helps Us Care for You: No Feels Safe at Home: Yes Safety Concerns: Feels Safe At This Time Assistive Devices: Glasses and Oxygen - Continuous Allergies Allergies Allergy/AdvReac Type Severity Reaction Status Date / Time piperacillin Allergy Severe SHORTNESS Verified 02/18/21 11:25 OF BREATH tazobactam Allergy Severe SHORTNESS Verified 02/18/21 11:25 OF BREATH Sulfa (Sulfonamide Allergy Unknown SWELLING Verified 02/18/21 11:25 Antibiotics) propoxyphene AdvReac Unknown BLOOD Verified 02/18/21 11:25 PRESSURE DROPS Home Meds Home Medications Medication Instructions Recorded Confirmed hydroxychloroquine 200 mg tablet 200 mg PO BID 11/29/18 02/18/21 magnesium oxide 500 mg tablet 500 mg PO DAILY 11/29/18 02/18/21 prednisone 5 mg tablet 5 mg PO BID 11/29/18 02/18/21 sennosides 8.6 mg tablet (senna) 8.6 mg PO BID 11/29/18 02/18/21 Results & Data (ED) Vital Signs Vital Signs - 24 hr 02/18/21 08:40 02/18/21 08:54 02/18/21 08:59 Temperature 36.8 C Temperature Source Oral Pulse Rate 90 Pulse Rate [Left] 100 H Pulse Rhythm Regular Pulse Rhythm [Left] Pulse Strength Normal Pulse Strength [Left] Respiratory Rate 18 20 Respiratory Effort / Characteristics Non-Labored Spontaneous SOB on Exertion Non-Labored Spontaneous Non-Labored Spontaneous Respiratory Depth Normal Blood Pressure 115/68 Blood Pressure [Right Arm] Blood Pressure Mean 83 Blood Pressure Mean [Right Arm] Blood Pressure Position Lying Blood Pressure Position [Right Arm] Pulse Oximetry 93 93 Oxygen Delivery Method Nasal Cannula Nasal Cannula Nasal Cannula Oxygen Flow Rate 3 3 7 Sepsis Recent Fever Within 48 Hours No Sepsis New/Unexplained Change in Mental Status N/A Sepsis Action Taken by Nursing No Action Required 02/18/21 10:36 02/18/21 11:00 02/18/21 11:30 Temperature 36.8 C Temperature Source Oral Pulse Rate Pulse Rate [Left] 79 83 85 Pulse Rhythm Pulse Rhythm [Left] Regular Regular Regular Pulse Strength Pulse Strength [Left] Normal Respiratory Rate 18 20 20 Respiratory Effort / Characteristics Non-Labored Spontaneous Non-Labored Respiratory Depth Normal Normal Normal Blood Pressure Blood Pressure [Right Arm] 89/49 L 108/73 95/58 L Blood Pressure Mean Blood Pressure Mean [Right Arm] 62 84 70 Blood Pressure Position Blood Pressure Position [Right Arm] Lying Pulse Oximetry 95 91 94 Oxygen Delivery Method Nasal Cannula Nasal Cannula Nasal Cannula Oxygen Flow Rate 3 6 6 Sepsis Recent Fever Within 48 Hours Sepsis New/Unexplained Change in Mental Status Sepsis Action Taken by Nursing 02/18/21 12:00 02/18/21 12:30 Temperature Temperature Source Pulse Rate 87 81 Pulse Rate [Left] Pulse Rhythm Pulse Rhythm [Left] Pulse Strength Pulse Strength [Left] Respiratory Rate 20 22 Respiratory Effort / Characteristics Non-Labored Respiratory Depth Blood Pressure 93/53 L 98/56 L Blood Pressure [Right Arm] Blood Pressure Mean 66 70 Blood Pressure Mean [Right Arm] Blood Pressure Position Blood Pressure Position [Right Arm] Pulse Oximetry 92 93 Oxygen Delivery Method Nasal Cannula Oxygen Flow Rate 6 Sepsis Recent Fever Within 48 Hours Sepsis New/Unexplained Change in Mental Status Sepsis Action Taken by [facility] Medications Current Medication List: was personally reviewed by me Laboratory Data Attestation: I reviewed the patient's lab results. Result diagrams: 02/18/21 09:50 02/18/21 09:50 Lab Results 02/18/21 02/18/21 02/18/21 Range/Units 09:49 09:49 09:50 WBC 5.08 (4.8-10.8) K/uL RBC 4.96 (4.7-6.1) M/uL Hgb 14.9 (14.0-18.0) g/dL Hct 45.7 (42-52) % MCV 92.1 (80-100) fL MCH 30.0 (25-34) pg MCHC 32.6 (32-36) g/dL RDW Std Deviation 50.4 H (36.4-46.3) fL RDW Coeff of Anglea 14.9 H (11.5-14.5) % Plt Count 141 (130-400) K/uL MPV 11.1 H (7.4-10.4) fL Immature Gran % (Auto) 0.6 % Neut % (Auto) 78.7 % Lymph % (Auto) 13.2 % [place] % (Auto) 6.3 % Eos % (Auto) 1.0 % Baso % (Auto) 0.2 % Neut # (Auto) 4.00 (1.4-6.5) K/uL Lymph # (Auto) 0.67 L (1.2-3.4) K/uL [place] # (Auto) 0.32 (0.11-0.59) K/uL Eos # (Auto) 0.05 (0-0.5) K/uL Baso # (Auto) 0.01 (0-0.2) K/uL Immature Gran # (Auto) 0.03 H (0.00-0.02) K/uL PT INR APTT PTT Ratio Sodium (136-145) mmol/L Potassium (3.5-5.1) mmol/L Chloride (98-107) mmol/L Carbon Dioxide (21-32) mmol/L Anion Gap (3-11) BUN (7-18) mg/dl Creatinine (0.6-1.4) mg/dl Est Cr Clr Drug Dosing ml/min Est GFR ( Amer) ml/min Est GFR (Non-Af Amer) ml/min BUN/Creatinine Ratio (10-20) Glucose (70-99) mg/dl Lactate (0.4-2.0) mmol/L Calcium (8.5-10.1) mg/dl Magnesium (1.8-2.4) mg/dl Total Bilirubin (0.2-1) mg/dl AST (15-37) U/L ALT (12-78) U/L Alkaline Phosphatase (45-117) U/L Troponin I (0-0.045) ng/ml Total Protein (6.4-8.2) gm/dl Albumin (3.4-5.0) gm/dl Globulin (2.5-4.0) gm/dl Albumin/Globulin Ratio (0.9-2) Procalcitonin (0-0.5) ng/ml COVID-19 Eval Order Covid19 at [facility] SARS-CoV-2 (PCR) NEGATIVE (Negative) 02/18/21 02/18/21 02/18/21 Range/Units 09:50 09:50 09:50 WBC (4.8-10.8) K/uL RBC (4.7-6.1) M/uL Hgb (14.0-18.0) g/dL Hct (42-52) % MCV (80-100) fL MCH (25-34) pg MCHC (32-36) g/dL RDW Std Deviation (36.4-46.3) fL RDW Coeff of Angela (11.5-14.5) % Plt Count (130-400) K/uL MPV (7.4-10.4) fL Immature Gran % (Auto) % Neut % (Auto) % Lymph % (Auto) % [place] % (Auto) % Eos % (Auto) % Baso % (Auto) % Neut # (Auto) (1.4-6.5) K/uL Lymph # (Auto) (1.2-3.4) K/uL [place] # (Auto) (0.11-0.59) K/uL Eos # (Auto) (0-0.5) K/uL Baso # (Auto) (0-0.2) K/uL Immature Gran # (Auto) (0.00-0.02) K/uL PT Cancelled INR Cancelled APTT Cancelled PTT Ratio Cancelled Sodium 142 (136-145) mmol/L Potassium 3.6 (3.5-5.1) mmol/L Chloride 110 H (98-107) mmol/L Carbon Dioxide 24 (21-32) mmol/L Anion Gap 8.0 (3-11) BUN 34 H (7-18) mg/dl Creatinine 1.01 (0.6-1.4) mg/dl Est Cr Clr Drug Dosing 52.9 ml/min Est GFR ( Amer) 76.6 ml/min Est GFR (Non-Af Amer) 66.1 ml/min BUN/Creatinine Ratio 33.2 H (10-20) Glucose 90 (70-99) mg/dl Lactate 1.6 (0.4-2.0) mmol/L Calcium 8.8 (8.5-10.1) mg/dl Magnesium 2.1 (1.8-2.4) mg/dl Total Bilirubin 0.6 (0.2-1) mg/dl AST 25 (15-37) U/L ALT 23 (12-78) U/L Alkaline Phosphatase 62 (45-117) U/L Troponin I 0.041 (0-0.045) ng/ml Total Protein 6.1 L (6.4-8.2) gm/dl Albumin 2.9 L (3.4-5.0) gm/dl Globulin 3.2 (2.5-4.0) gm/dl Albumin/Globulin Ratio 0.9 (0.9-2) Procalcitonin (0-0.5) ng/ml COVID-19 Eval Order SARS-CoV-2 (PCR) (Negative) 02/18/21 02/18/21 Range/Units 09:50 11:17 WBC (4.8-10.8) K/uL RBC (4.7-6.1) M/uL Hgb (14.0-18.0) g/dL Hct (42-52) % MCV (80-100) fL MCH (25-34) pg MCHC (32-36) g/dL RDW Std Deviation (36.4-46.3) fL RDW Coeff of Angela (11.5-14.5) % Plt Count (130-400) K/uL MPV (7.4-10.4) fL Immature Gran % (Auto) % Neut % (Auto) % Lymph % (Auto) % [place] % (Auto) % Eos % (Auto) % Baso % (Auto) % Neut # (Auto) (1.4-6.5) K/uL Lymph # (Auto) (1.2-3.4) K/uL [place] # (Auto) (0.11-0.59) K/uL Eos # (Auto) (0-0.5) K/uL Baso # (Auto) (0-0.2) K/uL Immature Gran # (Auto) (0.00-0.02) K/uL PT 10.3 INR 1.0 APTT 23.9 PTT Ratio 0.9 Sodium (136-145) mmol/L Potassium (3.5-5.1) mmol/L Chloride (98-107) mmol/L Carbon Dioxide (21-32) mmol/L Anion Gap (3-11) BUN (7-18) mg/dl Creatinine (0.6-1.4) mg/dl Est Cr Clr Drug Dosing ml/min Est GFR ( Amer) ml/min Est GFR (Non-Af Amer) ml/min BUN/Creatinine Ratio (10-20) Glucose (70-99) mg/dl Lactate (0.4-2.0) mmol/L Calcium (8.5-10.1) mg/dl Magnesium (1.8-2.4) mg/dl Total Bilirubin (0.2-1) mg/dl AST (15-37) U/L ALT (12-78) U/L Alkaline Phosphatase (45-117) U/L Troponin I (0-0.045) ng/ml Total Protein (6.4-8.2) gm/dl Albumin (3.4-5.0) gm/dl Globulin (2.5-4.0) gm/dl Albumin/Globulin Ratio (0.9-2) Procalcitonin 2.50 H (0-0.5) ng/ml COVID-19 Eval Order SARS-CoV-2 (PCR) (Negative) Administered Medications Benzonatate (Benzonatate 100 Mg Capsule) 100 mg PO TID GOGO Stop: 03/20/21 14:21 Last Admin: 02/18/21 15:32 Dose: 100 mg Documented by: [id number] Levalbuterol HCl (Levalbuterol 1.25mg/0.5ml Neb) 1.25 mg NEB Q6R GOGO Stop: 03/20/21 14:21 Last Admin: 02/18/21 15:15 Dose: 1.25 mg Documented by: [id number] Discontinued Medications Albuterol (Albut/Ipratrop 3mg/0.5mg Neb 3 Ml Vial) 3 ml NEB NOW STA Stop: 02/18/21 08:49 Last Admin: 02/18/21 08:58 Dose: 3 ml Documented by: [id number] Ertapenem (Invanz) 10 mls @ 2 mls/min IV NOW STA Stop: 02/18/21 08:52 Last Admin: 02/18/21 10:35 Dose: 2 mls/min Documented by: [id number] Sodium Chloride (Nss 1000ml) 500 mls @ 999 mls/hr IV .Q31M ONE Stop: 02/18/21 09:18 Last Infusion: 02/18/21 11:21 Dose: 0 mls/hr Documented by: [id number] Admin: 02/18/21 10:35 Dose: 999 mls/hr Documented by: [id number] Sodium Chloride (Nss 1000ml) 500 mls @ 999 mls/hr IV .Q31M ONE Stop: 02/18/21 12:10 Last Infusion: 02/18/21 12:31 Dose: 0 mls/hr Documented by: [id number] Admin: 02/18/21 11:54 Dose: 999 mls/hr Documented by: [id number] Ondansetron HCl (Ondansetron Inj 2 Mg/Ml 2 Ml Vial) 4 mg IV NOW STA Stop: 02/18/21 11:30 Last Admin: 02/18/21 11:37 Dose: 4 mg Documented by: [id number] Imaging Data Radiologist's Impression: Chest X-Ray 02/18/21 08:48 XR chest 1V portable HISTORY: 89 years-old Male SEPSIS acute sepsis COMPARISON: Chest radiograph 11/28/2018 TECHNIQUE: Portable AP view of the chest FINDINGS: Cardiac silhouette is upper limits of normal in size. Pulmonary vascular congestion. Mildly progressed bibasilar densities with linear scarring/atelectasis of the left midlung. No pneumothorax. Unchanged blunting of the costophrenic angles. No large pleural effusion. Degenerative changes of the shoulders and spine. Hyperattenuating foci of the lung bases appear unchanged. IMPRESSION: Bibasilar opacities are suggestive of atelectasis versus pneumonitis. ACT 112: Negative or not required by law. The above report was generated using voice recognition software. It may contain grammatical, syntax or spelling errors. Electronically signed by: Danny Wright M.D. 02/18/2021 11:46 AM Discharge Plan Visit Data Chief Complaint: Shortness of Breath/Dyspnea Stated Complaint: RESP DIFFCULTY ED Provider: Raheel Ramires Discharge Problem: Hypoxia, SOB (shortness of breath), Wheezing, Pneumonia Patient Disposition: Admitted As Inpatient Condition: Fair Discharge Instructions Interventions: ED Discharge Assessment Last Done: 02/18/21 14:00
[2021-02-18 10:05] LABS: Basophils # (auto) 0.01 K/uL (0-0.2); Basophils % (auto) 0.2 %; Eosinophils # (auto) 0.05 K/uL (0-0.5); Hematocrit (blood only) 45.7 % (42-52); Hemoglobin 14.9 g/dL (14.0-18.0); Immature Granulocytes # (auto) 0.03 K/uL (0.00-0.02); Immature Granulocytes % (auto) 0.6 %; Lymphocytes # (auto) 0.67 K/uL (1.2-3.4); Lymphocytes % (auto) 13.2 %; Mean Corpuscular Hgb Conc 32.6 g/dL (32-36); Mean Corpuscular Volume 92.1 fL (80-100); Mean Platelet Volume 11.1 fL (7.4-10.4); Monocytes # (auto) 0.32 K/uL (0.11-0.59); Monocytes % (auto) 6.3 %; Neutrophils % (auto) 78.7 %; Platelet Count 141 K/uL (130-400); RDW Coefficient of Variation 14.9 % (11.5-14.5); RDW Standard Deviation 50.4 fL (36.4-46.3); Red Blood Count 4.96 M/uL (4.7-6.1); White Blood Count 5.08 K/uL (4.8-10.8)
[2021-02-18 10:23] LABS: Albumin Level 2.9 gm/dl (3.4-5.0); BUN Creatinine Ratio 33.2 (10-20); Calcium 8.8 mg/dl (8.5-10.1); Creatinine Clr Calc Pharmacy 52.9 ml/min; Est GFR (African American) 76.6 ml/min; Est GFR (Non-African American) 66.1 ml/min; Magnesium 2.1 mg/dl (1.8-2.4); Potassium 3.6 mmol/L (3.5-5.1)
[2021-02-18 10:27] LABS: Albumin Globulin Ratio 0.9 (0.9-2); Bilirubin,Total 0.6 mg/dl (0.2-1); Globulin 3.2 gm/dl (2.5-4.0); Total Protein 6.1 gm/dl (6.4-8.2); Troponin I 0.041 ng/ml (0-0.045)
[2021-02-18] MEDS ORDERED: ONDANSETRON INJ 2 MG/ML 2 ML VIAL IV STA (11:29)
[2021-02-18 11:42] LABS: Partial Thromboplastin Ratio 0.9; Partial Thromboplastin Time 23.9 Seconds (21.0-31.0); Prothrombin Time 10.3 Seconds (9.0-12.0)
--- NOTE | 2021-02-18 11:47 | XRay Report ---
XR chest 1V portable HISTORY: 89 years-old Male SEPSIS acute sepsis COMPARISON: Chest radiograph 11/28/2018 TECHNIQUE: Portable AP view of the chest FINDINGS: Cardiac silhouette is upper limits of normal in size. Pulmonary vascular congestion. Mildly progresse d bibasilar densities with linear scarring/atelectasis of the left midlung. No pneumothorax. Unchange d blunting of the costophrenic angles. No large pleural effusion. Degenerative changes of the shoulde rs and spine. Hyperattenuating foci of the lung bases appear unchanged. IMPRESSION: Bibasilar opacities are suggestive of atelectasis versus pneumonitis. ACT 112: Negative or not required by law. The above report was generated using voice recognition software. It may contain grammatical, syntax o r spelling errors. Electronically signed by: Danny Wright M.D. 02/18/2021 11:46 AM
--- NOTE | 2021-02-18 12:36 | History & Physical Report ---
Date of Service February 18, 2021 Assessment & Plan (1) Aspiration pneumonia of both lower lobes: Plan: - Admit to med surg with tele - Sputum culture, mucinex, duonebs QID and Q2H prn, tessalon pearls - Wean O2 prn - COVID negative, MRSA swab neg - WBC at time of admission =5.08 - BCx x 2, follow - Afebrile on admission - Lactic acid pending, Procalcitonin 2.50 - CXR reviewed as above showing bilateral pulmonary infiltrate - Continue antibiotic therapy with ertapenem IV - Speech therapy consult, aspiration precautions with pt hx of epiglottis dysfunction, pt noncompliance with nectar thick liquid recommendation made per by speech therapy in the past. Allow diet once passes speech eval. (2) Acute respiratory failure with hypoxia: Plan: - Presented with O2 sats in the mid 80s, improved now on 6 L via NC at 93%, does not wear O2 at baseline. - Supportive therapy as above - Secondary to aspiration (3) Bladder cancer: Plan: - Hx of such in 2015, resolved (4) CAD (coronary artery disease): Plan: - Hx of chronic ischemic heart disease and HLD and HTN noted in outpatient notes in [facility] - reviewed - last echo is from October 2017 showing: The left ventricular cavity size is normal. The LV wall thickness is mildly increased (concentric). There is borderline diffuse left ventricular hypokinesis. The qualitative LV ejection fraction is 50-54% (normal). Moderate aortic valve sclerosis is present. Aortic stenosis is absent. There is trace aortic insufficiency - not on statin or aspirin therapy - Exercises routinely (5) Rheumatoid arthritis: Plan: - Continue prednisone (takes 5 mg BID daily at home), has for > 5 years. DVT ppx: - teds, scds, lovenox subq CODE: DNR/DNI Dispo: From home, likely to remain in the hospital x 2 days. History of Present Illness Chief Complaint: Shortness of breath Primary Care Provider: Bret Nash MD This is a 89 yo M with PMhx of severe GERD s/p partial stomach resection in 2011 and resulting feeding tube placement for 9 months causing epiglottis dysfunction, making him high risk for aspiration precautions. 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 Pt notes this started last night and that he did not develop any specific sx other than a productive cough with white mucous production. He felt short of breath this morning and felt he needed to come to the ER. Pt was found to be hypoxic with O2 sats in the mid 80s and typically does not wear any supplemental o2, however is currently requiring 6L. His COVID swab was negative on [facility]. He typically walks several blocks daily for routine exercise. He does not have fever, chills or sweats. Pt notes the hx of epiglottis dysfunction, and his who is present at bedside states he is supposed to drink nectar thick liquids, but is noncompliant. He also previously worked with speech therapy however passed and didn't need therapy anymore. He denies any other acute complaints. Allergies Allergy/AdvReac Type Severity Reaction Status Date / Time piperacillin Allergy Severe SHORTNESS Verified 02/18/21 11:25 OF BREATH tazobactam Allergy Severe SHORTNESS Verified 02/18/21 11:25 OF BREATH Sulfa (Sulfonamide Allergy Unknown SWELLING Verified 02/18/21 11:25 Antibiotics) propoxyphene AdvReac Unknown BLOOD Verified 02/18/21 11:25 PRESSURE DROPS Home Medications Medication Instructions Recorded Confirmed Type hydroxychloroquine 200 mg tablet 200 mg PO BID 11/29/18 02/18/21 History magnesium oxide 500 mg tablet 500 mg PO DAILY 11/29/18 02/18/21 History prednisone 5 mg tablet 5 mg PO BID 11/29/18 02/18/21 History sennosides 8.6 mg tablet (senna) 8.6 mg PO BID 11/29/18 02/18/21 History Past Med/Surg History Medical History (Updated 02/18/21 @ 12:42 by Tameka Rapp PA-C) Aspiration pneumonia Social History Smoking Status: Never smoker Second Hand Exposure: No; Do You Dip or Chew Tobacco: No; Tobacco Cessation Education Requested by Patient: No Hx Alcohol Use: Yes Alcohol type: beer Hx Substance Use: No Preferred Language: Yi Communication Ability: Effective Humanities Instructor Required: No Beliefs That Will Affect Care: None Current Living Situation: Spouse Other Information That Helps Us Care for You: No Feels Safe at Home: Yes Safety Concerns: Feels Safe At This Time Assistive Devices: Glasses and Oxygen - Continuous Review of Systems Review of Systems: Constitutional: No fever, sweats or chills Eyes: No diplopia, no worsening or blurred vision ENT: normal hearing, no trouble swallowing Respiratory: +cough, +sputum, +dyspnea at rest or on exertion Cardiovascular: No chest pain, tightness or palpitations Abdomen: No pain, nausea, vomiting, diarrhea or constipation Musculoskeletal: No joint pain, calf pain, swelling Neurologic: No weakness, numbness/tingling, or balance problems Psychiatric: No anxiety or depression Skin: No rash or itch Physical Exam Physical Exam: General: awake, alert, no apparent distress, + fatigued Head: Normocephalic, atraumatic ENT: PERRL, EOMI, no pharyngeal exudate, mucous membranes dry Chest: + diminished breath sounds throughout, + crackles on R>L base, no wheeze, on 6 L via NC in low 90s, mouth breathing, when asked to sit up sats drop to mid 70s Cardiac: Regular rate and rhythm, no murmur, no JVD, normal peripheral pulses, good capillary refill Abdominal: NABS x 4 quadrants, soft, nondistended, nontender to palpation, no rebound or guarding Extremities: Normal inspection, no peripheral edema or erythema, calfs nontender to palpation Psych: Normal mood and affect Neuro: AAO x 3, strength intact bilaterally and rated 5/5, no motor deficits, speech is clear, no peripheral sensory deficits Results & Data Results [facility] ([facility]) Vital Signs (Past 12 Hours) Vital Signs Temp Pulse Pulse Resp BP BP Pulse Ox 02/18/21 12:00 87 20 93/53 L 92 02/18/21 11:30 85 20 95/58 L 94 02/18/21 11:00 36.8 C 83 20 108/73 91 02/18/21 10:36 79 18 89/49 L 95 02/18/21 08:59 100 H 20 93 02/18/21 08:40 36.8 C 90 18 115/68 93 Diagnostic Findings Chest X-Ray 02/18/21 08:48 XR chest 1V portable HISTORY: 89 years-old Male SEPSIS acute sepsis COMPARISON: Chest radiograph 11/28/2018 TECHNIQUE: Portable AP view of the chest FINDINGS: Cardiac silhouette is upper limits of normal in size. Pulmonary vascular congestion. Mildly progressed bibasilar densities with linear scarring/atelectasis of the left midlung. No pneumothorax. Unchanged blunting of the costophrenic angles. No large pleural effusion. Degenerative changes of the shoulders and spine. Hyperattenuating foci of the lung bases appear unchanged. IMPRESSION: Bibasilar opacities are suggestive of atelectasis versus pneumonitis. ACT 112: Negative or not required by law. The above report was generated using voice recognition software. It may contain grammatical, syntax or spelling errors. Electronically signed by: Danny Wright M.D. 02/18/2021 11:46 AM ECG Additional Comments: 18-FEB-2021 08:27:35 [facility]-EDSTAT ROUTINE RETRIEVAL Normal sinus rhythm Right bundle branch block Septal infarct , age undetermined Abnormal ECG When compared with ECG of 28-NOV-2018 20:06, Premature ventricular complexes are no longer Present T wave inversion no longer evident in Inferior leads QT has lengthened 25mm/s 10mm/mV 150Hz 9.0.9 12SL 241 CRUZ: 15 Referred by: PROTOCOL Unconfirmed Vent. rate 90 BPM ID interval 180 ms QRS duration 150 ms QT/QTc 478/584 ms Code Status & VTE Plan Code Status DNR/DNI - discussed with patient and at bedside Supervising Physician Co-Signing Physician Notes Attending addendum; 89-year-old male with significant problem with dysfunction of the epiglottis with aspiration 1 swallowing and has been on nectar thick diet to prevent aspiration He started with cough since last night and got very shortness of breath this morning and thought to be evaluated in the emergency room He was found to be hypoxic in the ER and chest x-ray noted that he has bibasilar opacities suggestive of pneumonitis and could be secondary to aspiration He has been requiring high flow oxygen to maintain saturation and fluid administration to maintain blood pressure He plans to eat orally On examination Lying in bed with moderate shortness of breath at rest Denies any significant pain Blood pressure was noted to be low initially but that went up to 95/64 with fluid administration Chest-occasional crackles at the bases more on the left HeartS1-S2, regular Abdomenbenign, urostomy site intact Extremities-negative for any edema 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 Generally weak Admission labs, EKG and imaging studies reviewed Possible aspiration pneumonia given the history of epiglottic dysfunction, could have bibasilar pneumonia other than aspiration Intravenous ertapenem has been started Blood and sputum culture has been taken Low blood pressureimproved with IV fluid Speech evaluation will be done while in the hospital-the patient wanted to continue oral food Agree with assessment and plan as outlined above by JARON Meneses DR
[2021-02-18] MEDS ORDERED: ACETAMINOPHEN 325 MG TAB PO PRN (14:22)
[2021-02-18] MEDS ORDERED: LEVALBUTEROL 1.25MG/0.5ML NEB NEB PRN (14:50)
[2021-02-18] MEDS: LEVALBUTEROL 1.25MG/0.5ML NEB NEB SCH ×2 (15:15→19:44)
[2021-02-18] MEDS: BENZONATATE 100 MG CAPSULE PO SCH ×2 (15:32→21:06)
--- NOTE | 2021-02-18 16:59 | Electrocardiogram Report ---
Test Reason : Blood Pressure : / mmHG Vent. Rate : 090 BPM Atrial Rate : 090 BPM P-R Int : 180 ms QRS Dur : 150 ms QT Int : 478 ms P-R-T Axes : 072 -07 046 degrees QTc Int : 584 ms Normal sinus rhythm Right bundle branch block with repolarization abnormality Abnormal ECG When compared with ECG of 28-NOV-2018 20:06, Premature ventricular complexes are no longer Present QT has lengthened Confirmed by Tray Sr ([id number]) on 02/18/2021 4:58:55 PM Referred By: PROTOCOL Confirmed By:Tray Sr
[2021-02-18] MEDS: HYDROXYCHLOROQUINE SULFATE 200 MG TAB PO SCH (21:07)
[2021-02-18] MEDS: guaiFENesin 600 MG TABCR PO SCH (21:07)
[2021-02-18] MEDS: SENNA 8.6 MG TAB PO SCH (21:08)
[2021-02-18] MEDS: predniSONE 5 MG TAB PO SCH (21:08)
[2021-02-18] MEDS ORDERED: SODIUM CHLORIDE 0.9% 500 ML IV SCH (22:30)
[2021-02-18] MEDS ORDERED: SODIUM CHLORIDE 0.9% 1000ML 1,000 ML IV SCH (23:30)
[2021-02-19] MEDS: LEVALBUTEROL 1.25MG/0.5ML NEB NEB SCH ×4 (00:26→19:31)
[2021-02-19 07:07] LABS: Hematocrit (blood only) 42.3 % (42-52); Hemoglobin 13.4 g/dL (14.0-18.0); Mean Corpuscular Hemoglobin 29.6 pg (25-34); Mean Corpuscular Hgb Conc 31.7 g/dL (32-36); Mean Corpuscular Volume 93.6 fL (80-100); Mean Platelet Volume 11.1 fL (7.4-10.4); Platelet Count 135 K/uL (130-400); RDW Coefficient of Variation 15.1 % (11.5-14.5); RDW Standard Deviation 52.3 fL (36.4-46.3); Red Blood Count 4.52 M/uL (4.7-6.1); White Blood Count 10.74 K/uL (4.8-10.8)
[2021-02-19] MEDS: BENZONATATE 100 MG CAPSULE PO SCH ×3 (08:29→20:38)
[2021-02-19] MEDS: guaiFENesin 600 MG TABCR PO SCH ×2 (08:29→20:39)
[2021-02-19] MEDS: predniSONE 5 MG TAB PO SCH ×2 (08:30→20:40)
[2021-02-19] MEDS: HYDROXYCHLOROQUINE SULFATE 200 MG TAB PO SCH ×2 (08:30→20:39)
[2021-02-19] MEDS: SENNA 8.6 MG TAB PO SCH ×2 (08:30→20:40)
[2021-02-19] MEDS: MAGNESIUM OXIDE 400 MG TAB PO SCH (08:30)
[2021-02-19 08:58] LABS: Albumin Globulin Ratio 0.7 (0.9-2); Albumin Level 2.4 gm/dl (3.4-5.0); BUN Creatinine Ratio 25.8 (10-20); Bilirubin,Total 0.9 mg/dl (0.2-1); Calcium 8.4 mg/dl (8.5-10.1); Creatinine Clr Calc Pharmacy 27.1 ml/min; Est GFR (Non-African American) 29.3 ml/min; Globulin 3.3 gm/dl (2.5-4.0); Potassium 4.8 mmol/L (3.5-5.1); Total Protein 5.7 gm/dl (6.4-8.2)
[2021-02-19] MEDS ORDERED: NON-FORMULARY MEDICATION (Magnesium Oxide 500 mg Tablet) PO SCH (09:00)
[2021-02-19] MEDS ORDERED: ENOXAPARIN INJ 40 MG/0.4 ML SYR SQ SCH (09:00)
[2021-02-19] MEDS ORDERED: ERTAPENEM SODIUM 1,000 MG in SODIUM CHLORIDE 0.9% 50 ML IV SCH (10:00)
[2021-02-19] MEDS: SODIUM CHLORIDE 0.45 % 1,000 ML IV SCH ×2 (10:54→19:05)
[2021-02-19 11:57] LABS: Appearance Urine Clear (Clear); Bilirubin Urine Negative (Negative); Blood Urine Negative (Negative); Color Urine Dark Yellow; Epithelial Cell Urine Auto >30 /lpf (0-5); Glucose Urine UA Negative (Negative); Ketones Urine Negative (Negative); Leukocyte Esterase Urine Trace (Negative); Nitrite Urine Negative (Negative); RBC Urine Automated 0-4 /hpf (0-4); Specific Gravity Urine 1.016 (1.000-1.030); Urobilinogen Urine Negative (Negative); pH Urine >= 9.0 (4.5-7.5)
[2021-02-19 12:08] LABS: Protein Urine 1+ (Negative)
[2021-02-19 12:27] LABS: Bacteria Urine Automated 1+ (Negative); Mucus Urine Present (None Prsent); Triple Phosphate Crystal Urine Present (None Prsent)
--- NOTE | 2021-02-19 21:01 | Hospitalist Progress Note ---
Date of Service February 19, 2021 Assessment & Plan (1) Aspiration pneumonia of both lower lobes: (2) Acute respiratory failure with hypoxia: Plan: #. Aspiration pneumonia of both lower lobes #. Acute respiratory failure with hypoxia At presentation SPO2 in mid 80s, improved on 6 L via nasal cannula at 93%. No home oxygen. Covid negative. Admitting CXR bilateral pulmonary infiltrates, given history of aspiration likely aspiration pneumonia leading to hypoxic respiratory failure Patient has been aspirating since 2011. He has had multiple modified barium swallow studies. Patient has denied in the past of any dietary recommendation from speech therapy and does not want any feeding tube. Had agreed in the past for permissive aspiration with oral intake. Speech was consulted and the patient again denied any intervention for dysphagia. Continue with IV antibiotic, continue to monitor, follow-up blood culture. When oxygen as tolerated #. Bladder cancer: History of surgery in 2015 #. CAD/HLD/HTN: Last echo from October 2017 with normal LV cavity size, borderline diffuse left ventricular hypokinesis, EF 50 to 55%. Not on statin or aspirin therapy. Exercises routinely. Stable. #. Rheumatoid arthritis: Continue prednisone [takes 5 mg twice daily daily at home], has for greater than 5 years. DVT ppx: - teds, scds, lovenox subq CODE: DNR/DNI Dispo: From home, PT/OT consulted. Await recommendation. Admission and Anticipated Discharge Date Admission Date: February 18, 2021 Subjective Patient is lying in bed, on 5 L oxygen, AOx3, NAD, no issues overnight per RN. Patient denies any fever/chills/chest pain/shortness of breath/headache/dizziness/other review of symptoms. Physical Exam Physical Exam: GENERAL: Alert and oriented x3. NAD, on 5L. HEENT: No pallor, no icterus. Pupils equal, round and reactive to light. Oral mucosa moist. NECK: No JVD, no neck masses. HEART: S1 and S2 heard. Regular rate and rhythm. No murmur, no gallop. RESPIRATORY SYSTEM: Normal AP diameter. No accessory muscle use. No wheezing, left greater than right lung crackles. ABDOMEN: Soft, bowel sounds present, nontender, no distention. Urostomy site intact with urine collection in the bag. CENTRAL NERVOUS SYSTEM: No facial droop. Speech is clear. Obeys simple commands. Moves extremities. EXTREMITIES: No edema, no erythema seen. Results & Data Results & Data ([facility]) Vital Signs (Past 12 Hours) Vital Signs Temp Pulse Pulse Pulse Resp BP Pulse Ox 02/19/21 20:49 36.6 C 82 18 99/62 L 94 02/19/21 19:31 76 15 94 02/19/21 16:07 37.1 C 69 21 113/71 91 02/19/21 15:20 843 H 02/19/21 13:26 80 20 93 02/19/21 11:45 02/19/21 11:38 88 L 02/19/21 11:16 36.4 C L 86 21 115/73 95 02/19/21 11:08 02/19/21 10:23 78 Pulse Ox Pulse Ox Pulse Ox Pulse Ox 02/19/21 20:49 02/19/21 19:31 02/19/21 16:07 02/19/21 15:20 02/19/21 13:26 02/19/21 11:45 91 02/19/21 11:38 02/19/21 11:16 02/19/21 11:08 86 L 87 L 82 L 02/19/21 10:23
[2021-02-20] MEDS: LEVALBUTEROL 1.25MG/0.5ML NEB NEB SCH ×4 (00:24→19:00)
[2021-02-20 06:25] LABS: Hematocrit (blood only) 41.3 % (42-52); Mean Corpuscular Hemoglobin 29.9 pg (25-34); Mean Corpuscular Hgb Conc 31.5 g/dL (32-36); Mean Corpuscular Volume 94.9 fL (80-100); Mean Platelet Volume 11.4 fL (7.4-10.4); Platelet Count 125 K/uL (130-400); RDW Coefficient of Variation 15.2 % (11.5-14.5); RDW Standard Deviation 53.2 fL (36.4-46.3); Red Blood Count 4.35 M/uL (4.7-6.1); White Blood Count 9.91 K/uL (4.8-10.8)
[2021-02-20 07:15] LABS: Albumin Level 2.4 gm/dl (3.4-5.0); BUN Creatinine Ratio 41.3 (10-20); Calcium 8.6 mg/dl (8.5-10.1); Creatinine Clr Calc Pharmacy 50.8 ml/min; Est GFR (African American) 71.5 ml/min; Est GFR (Non-African American) 61.7 ml/min; Magnesium 2.2 mg/dl (1.8-2.4); Potassium 4.4 mmol/L (3.5-5.1)
[2021-02-20 07:22] LABS: Albumin Globulin Ratio 0.7 (0.9-2); Bilirubin,Total 0.5 mg/dl (0.2-1); Globulin 3.4 gm/dl (2.5-4.0); Total Protein 5.8 gm/dl (6.4-8.2)
[2021-02-20] MEDS: predniSONE 5 MG TAB PO SCH ×2 (09:29→20:01)
[2021-02-20] MEDS: HYDROXYCHLOROQUINE SULFATE 200 MG TAB PO SCH ×2 (09:29→20:01)
[2021-02-20] MEDS: guaiFENesin 600 MG TABCR PO SCH ×2 (09:29→20:00)
[2021-02-20] MEDS: SENNA 8.6 MG TAB PO SCH ×2 (09:29→20:01)
[2021-02-20] MEDS: BENZONATATE 100 MG CAPSULE PO SCH ×3 (09:29→20:00)
[2021-02-20] MEDS: MAGNESIUM OXIDE 400 MG TAB PO SCH (09:30)
[2021-02-20] MEDS: HEPARIN SOD 5,000 UNIT/0.5 ML VIAL SQ SCH ×2 (09:30→20:00)
[2021-02-20] MEDS ORDERED: ERTAPENEM SODIUM 1,000 MG in SODIUM CHLORIDE 0.9% 50 ML IV SCH (11:00)
[2021-02-20] MEDS ORDERED: ERTAPENEM SODIUM 500 MG in SODIUM CHLORIDE 0.9% 50 ML IV SCH (11:00)
[2021-02-20] MEDS ORDERED: ERTAPENEM SODIUM 500 MG in SODIUM CHLORIDE 0.9% 50 ML IV ONE (14:15)
--- NOTE | 2021-02-20 16:49 | Hospitalist Progress Note ---
Date of Service February 20, 2021 Assessment & Plan (1) Aspiration pneumonia of both lower lobes: (2) Acute respiratory failure with hypoxia: Plan: #. Aspiration pneumonia of both lower lobes #. Acute respiratory failure with hypoxia At presentation SPO2 in mid 80s, improved on 6 L via nasal cannula at 93%. No home oxygen. Covid negative. Admitting CXR bilateral pulmonary infiltrates, given history of aspiration likely aspiration pneumonia leading to hypoxic respiratory failure Patient has been aspirating since 2011. He has had multiple modified barium swallow studies. Patient has denied in the past of any dietary recommendation from speech therapy and does not want any feeding tube. Had agreed in the past for permissive aspiration with oral intake. Speech was consulted and the patient again denied any intervention for dysphagia. Continue with IV antibiotic, continue to monitor, 02/18 blood culture no growth after 48 hrs. When oxygen as tolerated #. UTI: Urine culture growing gram-positive cocci, patient on antibiotic. #. Bladder cancer: History of surgery in 2015 #. CAD/HLD/HTN: Last echo from October 2017 with normal LV cavity size, borderline diffuse left ventricular hypokinesis, EF 50 to 55%. Not on statin or aspirin therapy. Exercises routinely. Stable. #. Rheumatoid arthritis: Continue prednisone [takes 5 mg twice daily daily at home], has for greater than 5 years. DVT ppx: - teds, scds, lovenox subq CODE: DNR/DNI Dispo: From home, PT/OT consulted. Await recommendation. CM to assist with DC planning, likely DC tomorrow. Admission and Anticipated Discharge Date Admission Date: February 18, 2021 Subjective Patient is lying in bed, on 4 L oxygen, AOx3, NAD, no issues overnight per RN. Patient denies any fever/chills/chest pain/shortness of breath/headache/d izziness/other review of symptoms. Physical Exam Physical Exam: GENERAL: Alert and oriented x3. NAD, on 4L. HEENT: No pallor, no icterus. Pupils equal, round and reactive to light. Oral mucosa moist. NECK: No JVD, no neck masses. HEART: S1 and S2 heard. Regular rate and rhythm. No murmur, no gallop. RESPIRATORY SYSTEM: Normal AP diameter. No accessory muscle use. No wheezing, left greater than right lung crackles. ABDOMEN: Soft, bowel sounds present, nontender, no distention. Urostomy site intact with urine collection in the urostomy bag. CENTRAL NERVOUS SYSTEM: No facial droop. Speech is clear. Obeys simple commands. Moves extremities. EXTREMITIES: No edema, no erythema seen. Results & Data Results & Data ([facility]) Vital Signs (Past 12 Hours) Vital Signs Temp Pulse Pulse Pulse Resp BP Pulse Ox 02/20/21 15:19 36.6 C 76 18 109/73 94 02/20/21 13:17 70 20 97 02/20/21 11:29 02/20/21 11:01 36.4 C 66 18 106/64 90 02/20/21 09:48 02/20/21 07:49 74 02/20/21 07:23 68 18 94 02/20/21 07:21 36.4 C L 71 18 105/64 95 Pulse Ox 02/20/21 15:19 02/20/21 13:17 02/20/21 11:29 95 02/20/21 11:01 02/20/21 09:48 90 02/20/21 07:49 02/20/21 07:23 02/20/21 07:21
[2021-02-21] MEDS: LEVALBUTEROL 1.25MG/0.5ML NEB NEB SCH ×4 (00:08→19:48)
[2021-02-21 07:27] LABS: Hematocrit (blood only) 40.7 % (42-52); Hemoglobin 12.9 g/dL (14.0-18.0); Mean Corpuscular Hemoglobin 29.5 pg (25-34); Mean Corpuscular Hgb Conc 31.7 g/dL (32-36); Mean Corpuscular Volume 93.1 fL (80-100); Mean Platelet Volume 11.9 fL (7.4-10.4); Platelet Count 146 K/uL (130-400); RDW Coefficient of Variation 15.2 % (11.5-14.5); RDW Standard Deviation 51.9 fL (36.4-46.3); Red Blood Count 4.37 M/uL (4.7-6.1); White Blood Count 9.96 K/uL (4.8-10.8)
[2021-02-21 07:53] LABS: Albumin Level 2.4 gm/dl (3.4-5.0); BUN Creatinine Ratio 36.9 (10-20); Calcium 9.2 mg/dl (8.5-10.1); Est GFR (African American) 88.5 ml/min; Est GFR (Non-African American) 76.3 ml/min; Potassium 4.5 mmol/L (3.5-5.1)
[2021-02-21 07:56] LABS: Albumin Globulin Ratio 0.6 (0.9-2); Bilirubin,Total 0.4 mg/dl (0.2-1); Globulin 3.8 gm/dl (2.5-4.0); Total Protein 6.2 gm/dl (6.4-8.2)
[2021-02-21] MEDS: BENZONATATE 100 MG CAPSULE PO SCH ×3 (08:24→20:30)
[2021-02-21] MEDS: HYDROXYCHLOROQUINE SULFATE 200 MG TAB PO SCH ×2 (08:24→20:30)
[2021-02-21] MEDS: guaiFENesin 600 MG TABCR PO SCH ×2 (08:25→20:30)
[2021-02-21] MEDS: MAGNESIUM OXIDE 400 MG TAB PO SCH (08:25)
[2021-02-21] MEDS: predniSONE 5 MG TAB PO SCH ×2 (08:26→20:29)
[2021-02-21] MEDS: SENNA 8.6 MG TAB PO SCH ×2 (08:26→20:29)
[2021-02-21] MEDS: HEPARIN SOD 5,000 UNIT/0.5 ML VIAL SQ SCH ×2 (08:27→20:35)
[2021-02-21] MEDS ORDERED: ERTAPENEM SODIUM 1,000 MG in SODIUM CHLORIDE 0.9% 50 ML IV SCH (11:00)
--- NOTE | 2021-02-21 17:57 | Hospitalist Progress Note ---
Date of Service February 21, 2021 Assessment & Plan (1) Aspiration pneumonia of both lower lobes: (2) Acute respiratory failure with hypoxia: Plan: #. Aspiration pneumonia of both lower lobes #. Acute respiratory failure with hypoxia At presentation SPO2 in mid 80s, improved on 6 L via nasal cannula at 93%. No home oxygen. Covid negative. Admitting CXR bilateral pulmonary infiltrates, given history of aspiration likely aspiration pneumonia leading to hypoxic respiratory failure Patient has been aspirating since 2011. He has had multiple modified barium swallow studies. Patient has denied in the past of any dietary recommendation from speech therapy and does not want any feeding tube. Had agreed in the past for permissive aspiration with oral intake. Speech was consulted and the patient again denied any intervention for dysphagia. Continue with IV antibiotic, continue to monitor, 02/18 blood culture no growth after 48 hrs. Likely transition to Levaquin and metronidazole at discharge. Wean oxygen as tolerated #. UTI: Urine culture growing gram-positive cocci, patient on antibiotic. will tailor once results out. #. Bladder cancer: History of surgery in 2016 #. CAD/HLD/HTN: Last echo from October 2017 with normal LV cavity size, borderline diffuse left ventricular hypokinesis, EF 50 to 55%. Not on statin or aspirin therapy. Exercises routinely. Stable. #. Rheumatoid arthritis: Continue prednisone [takes 5 mg twice daily daily at home], has for greater than 5 years. DVT ppx: - teds, scds, lovenox subq CODE: DNR/DNI Dispo: From home, PT/OT consulted. Needs home health OT. CM to assist with DC planning, likely DC tomorrow. Admission and Anticipated Discharge Date Admission Date: February 18, 2021 Subjective Patient is lying in bed, onRA, AOx3, NAD, no issues overnight per RN. Patient denies any fever/chills/chest pain/shortness of breath/headache/dizziness/other review of symptoms. Physical Exam Physical Exam: GENERAL: Alert and oriented x3. NAD, on RA. HEENT: No pallor, no icterus. Pupils equal, round and reactive to light. Oral mucosa moist. NECK: No JVD, no neck masses. HEART: S1 and S2 heard. Regular rate and rhythm. No murmur, no gallop. RESPIRATORY SYSTEM: Normal AP diameter. No accessory muscle use. No wheezing, left greater than right lung crackles. ABDOMEN: Soft, bowel sounds present, nontender, no distention. Urostomy site intact with urine collection in the urostomy bag. CENTRAL NERVOUS SYSTEM: No facial droop. Speech is clear. Obeys simple commands. Moves extremities. EXTREMITIES: No edema, no erythema seen. Results & Data Results & Data ([facility]) Vital Signs (Past 12 Hours) Vital Signs Temp Pulse Pulse Resp BP Pulse Ox 02/21/21 15:56 36.6 C 73 16 122/71 94 02/21/21 14:59 93 H 02/21/21 12:54 77 24 96 02/21/21 11:40 36.5 C 79 16 97/73 L 94 02/21/21 10:09 58 L 02/21/21 08:22 36.8 C 81 16 147/77 H 94 02/21/21 07:11 71 20 96
[2021-02-22] MEDS: LEVALBUTEROL 1.25MG/0.5ML NEB NEB SCH ×2 (00:44→07:21)
[2021-02-22] MEDS ORDERED: AMOXICILLIN/CLAVULANATE 875 MG TAB PO SCH (09:00)
[2021-02-22] MEDS: predniSONE 5 MG TAB PO SCH (09:30)
[2021-02-22] MEDS: BENZONATATE 100 MG CAPSULE PO SCH (09:30)
[2021-02-22] MEDS: guaiFENesin 600 MG TABCR PO SCH (09:30)
[2021-02-22] MEDS: HYDROXYCHLOROQUINE SULFATE 200 MG TAB PO SCH (09:31)
[2021-02-22] MEDS: MAGNESIUM OXIDE 400 MG TAB PO SCH (09:31)
[2021-02-22] MEDS: HEPARIN SOD 5,000 UNIT/0.5 ML VIAL SQ SCH (09:31)
[2021-02-22] MEDS: SENNA 8.6 MG TAB PO SCH (09:31)
--- NOTE | 2021-02-22 14:17 | Discharge Summary ---
Date of Service February 22, 2021 Admission HPI Per Admitting Provider This is a 89 yo M with PMhx of severe GERD s/p partial stomach resection in 2011 and resulting feeding tube placement for 9 months causing epiglottis dysfunction, making him high risk for aspiration precautions. Other PMHx includes bladder cancer in 2016, CAD, chronic ischemic heart disease, RA on snf steroids, HLD, osteoporosis, GERD, who presents with shortness of breath. Pt notes this started last night and that he did not develop any specific sx other than a productive cough with white mucous production. He felt short of breath this morning and felt he needed to come to the ER. Pt was found to be hypoxic with O2 sats in the mid 80s and typically does not wear any supplemental o2, however is currently requiring 6L. His COVID swab was negative on admission. He typically walks several blocks daily for routine exercise. He does not have fever, chills or sweats. Pt notes the hx of epiglottis dysfunction, and his who is present at bedside states he is supposed to drink nectar thick liquids, but is noncompliant. He also previously worked with speech therapy however passed and didn't need therapy anymore. He denies any other acute complaints. Admission Exam Per Admitting Provider On examination Lying in bed with moderate shortness of breath at rest Denies any significant pain Blood pressure was noted to be low initially but that went up to 95/64 with fluid administration Chest-occasional crackles at the bases more on the left HeartS1-S2, regular Abdomenbenign, urostomy site intact Extremities-negative for any edema [employer]-alert, 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 Generally weak Principal Diagnosis Aspiration Pneumonia Complicated UTI Discharge Exam GENERAL: Alert and oriented x3. NAD, on RA. HEENT: No pallor, no icterus. Pupils equal, round and reactive to light. Oral mucosa moist. NECK: No JVD, no neck masses. HEART: S1 and S2 heard. Regular rate and rhythm. No murmur, no gallop. RESPIRATORY SYSTEM: Normal AP diameter. No accessory muscle use. No wheezing, no crackles. ABDOMEN: Soft, bowel sounds present, nontender, no distention. Urostomy site intact with urine collection in the urostomy bag. CENTRAL NERVOUS SYSTEM: No facial droop. Speech is clear. Obeys simple commands. Moves extremities. EXTREMITIES: No edema, no erythema seen. Discharge Data Allergies Allergy/AdvReac Type Severity Reaction Status Date / Time piperacillin Allergy Severe SHORTNESS Verified 02/18/21 11:25 OF BREATH tazobactam Allergy Severe SHORTNESS Verified 02/18/21 11:25 OF BREATH Sulfa (Sulfonamide Allergy Unknown SWELLING Verified 02/18/21 11:25 Antibiotics) propoxyphene AdvReac Unknown BLOOD Verified 02/18/21 11:25 PRESSURE DROPS Consultations 02/18/21 12:28 ED Decision to Admit Stat Hospital Course (1) Aspiration pneumonia of both lower lobes: (2) Acute respiratory failure with hypoxia: #. Aspiration pneumonia of both lower lobes #. Acute respiratory failure with hypoxia At presentation SPO2 in mid 80s, improved on 6 L via nasal cannula at 93%. No home oxygen. Covid negative. Admitting CXR bilateral pulmonary infiltrates, given history of aspiration likely aspiration pneumonia leading to hypoxic respiratory failure Patient has been aspirating since 2011. He has had multiple modified barium swallow studies. Patient has denied in the past of any dietary recommendation from speech therapy and does not want any feeding tube. Had agreed in the past for permissive aspiration with oral intake. Speech was consulted and the patient again denied any intervention for dysphagia. Patient on room air, stable, lungs improved clinically, patient transition to oral Augmentin. Patient advised to follow-up with PCP within a week time, also informed that he needs a repeat chest x-ray in 4 to 6-week for confirming resolution. #. UTI: Urine culture growing gram-positive cocci, patient on antibiotic. Patient on Augmentin. #. Bladder cancer: History of surgery in 2016 #. CAD/HLD/HTN: Last echo from October 2017 with normal LV cavity size, borderline diffuse left ventricular hypokinesis, EF 50 to 55%. Not on statin or aspirin therapy. Exercises routinely. Stable. #. Rheumatoid arthritis: Continue prednisone [takes 5 mg twice daily daily at home], has for greater than 5 years. DVT ppx: - teds, scds, lovenox subq while inpatient CODE: DNR/DNI Patient discharged to home with following instruction at the time of discharge: Follow-up with your primary care physician within a week time. Follow-up with the urology doctor in a month's time. Take antibiotics as prescribed. You will need chest x-ray in 4 to 6 weeks to confirm the resolution of your pneumonia. Take medications as prescribed. Total Time Total Time Spent Total Time Spent (In Minutes): 45 Discharge Plan Discharge Items Patient Disposition: Home - Self-Care Reason For Visit: ASPIRATION PNA Discharge Diagnosis: Aspiration pneumonia Complicated UTI Condition on Discharge: Fair Activity: Resume your previous activity Non-emergency contact: Primary Care Provider Call non-emergency contact if: you have any medication questions, your symptoms worsen and your temperature is above 101 Follow-up/Referrals: Bret Nahs MD [Primary Care Provider] - (Date & Time 02/26/2021 11:20 AM Provider Bret Nash MD Department General Internal Medicine [facility] ) Diet: Heart Healthy Addtl Attending Provider Instructions: Follow-up with your primary care physician within a week time. Follow-up with the urology doctor in a month's time. Take antibiotics as prescribed. You will need chest x-ray in 4 to 6 weeks to confirm the resolution of your pneumonia. Take medications as prescribed. Pending Studies at Discharge: Yes (Final results on 02/18 blood culture.) Stand-Alone Forms: My [facility], Smoking Cessation Medications and DC Order Prescriptions: New amoxicillin-pot clavulanate [Augmentin] 875-125 mg Tablet 1 tab PO BIDM 5 Days Qty: 9 RF: 0 Continued sennosides [senna] 8.6 mg Tablet 8.6 mg PO BID RF: 0 prednisone 5 mg tablet 5 mg PO BID RF: 0 magnesium oxide 500 mg Tablet 500 mg PO DAILY RF: 0 hydroxychloroquine 200 mg tablet 200 mg PO BID RF: 0 Discharge Orders: Discharge Order (Routine); Ordered 02/22/21 Ordered By: Nick Stovall Admission Data Admit Date/Time: 02/18/21 12:51 Attending Provider: Nick Stovall Admit Provider: Anne Limon Primary Care Provider: Bret Nash Other Providers: Razia Campos Other Interventions: Discharge Summary Assessment (RN) Last Done: 02/22/21 10:58
== END 2021-02-22 11:41 | disposition home or self-care (01) | DRG 177 ==
LOC: ED 08:11 → 2W 12:51 → SUATTDRO 12:51 → 2W 14:00

== ENCOUNTER 2021-04-30 18:50 | Inpatient (IN) ==
[2021-04-30] MEDS ORDERED: ALBUT/IPRATROP 3MG/0.5MG NEB 3 ML VIAL ONE (18:56)
[2021-04-30] MEDS ORDERED: ALBUT/IPRATROP 3MG/0.5MG NEB 3 ML VIAL NEB STA (18:59)
[2021-04-30] MEDS ORDERED: CEFEPIME 2,000 MG/20 ML VIAL IV STA (19:00)
[2021-04-30] MEDS ORDERED: SODIUM CHLORIDE 0.9% 1000ML 1,000 ML IV SCH (19:00)
[2021-04-30] MEDS ORDERED: VANCOMYCIN CONSULT ACTIVE PRN (19:00)
[2021-04-30] MEDS ORDERED: VANCOMYCIN HCL 1,500 MG in SODIUM CHLORIDE 0.9% 500 ML IV ONE (19:00)
[2021-04-30] MEDS ORDERED: SODIUM CHLORIDE 0.9% 1000ML 500 ML IV ONE ×2 (19:03→19:40)
--- NOTE | 2021-04-30 19:03 | Emergency Department Note ---
Impression & Plan Hypoxia, Fever ED Provider Note INFORMANT: Patient, EMS, ED PROVIDER(S): Chester Moise MD CHIEF COMPLAINT: Respiratory distress PLAN: Disposition: Admitted Condition: Guarded Outpatient prescription management: None Referral: None MEDICAL DECISION MAKING: Patient presented via EMS in respiratory distress. He was transitioned to BiPAP. His vital signs showed a mild tachycardia with PVCs on monitoring. The patient was given a DuoNeb. His oxygen saturations were in the low to mid 90s. The patient was tested for Covid, influenza, and blood cultures obtained. Blood work was done and EKG was performed. The patient was found to have sinus tachycardia with PVCs but no acute ischemia. He had a mildly low blood pressure and was given a gentle saline bolus. Chest x-ray was performed. I did discuss the patient's respiratory status with his . The patient is a DNR/DNI. Chest x-ray revealed bilateral lower lobe infiltrates. Patient was treated with cefepime, vancomycin, and clindamycin. He does have an allergy to Zosyn. The patient was doing relatively well on the BiPAP. He did have some fluctuation in his blood pressure and was given saline boluses for this. His blood work does reveal his lactate to be elevated, troponin is also elevated and the patient does have acute kidney injury. Patient's BNP is elevated as well. The patient's lactate did improve with fluid boluses. Clinically he was doing well under the circumstances. Patient's was informed. Further management will be necessary in the hospital. Consultation was made with Dr. Misbah Chu, [facility] Hospitalist service. Triage Nursing notes reviewed and agree them. Vital Signs: reviewed and remarkable for borderline hypotension, tachypnea Differential diagnosis: Aspiration, reactive airway disease, pneumonia, pneumothorax, COPD, CHF, infections, cardiac ischemia, pulmonary embolism, musculoskeletal, gastrointestinal, as well as other pathologies. Diagnostics interpreted by me: ECG: Twelve-lead ECG reveals sinus tachycardia with PVCs at 107 bpm. No evidence of ST elevation. Nonspecific ST. When compared to 02/18/2021 PVCs are new. Cardiac Monitoring: Cardiac monitoring ordered by me: The patient was placed on continuous cardiac monitoring and observed. It revealed sinus tachycardic rhythm at 104 beats per minute with significant ectopy noted. No dysrhythmia. Imaging studies: Chest x-ray concerning for bibasilar infiltrates. HPI: The patient is a 89year old male who presents to the Emergency Room with complaints of respiratory distress. This started this evening. The patient reportedly had a fever this afternoon. He was doing well over the last few days. He does have a chronic cough and history of aspiration. This evening he did have an episode of vomiting. The notes the patient had increased difficulty breathing. He became more short of breath. He had a controlled fall and she caught him. He suffered no significant injury other than a small little skin tear to the left forearm. The patient was having difficulty breathing and EMS was summoned. On EMS arrival the patient had a room air saturation of 67%. He was placed on the letter and treatment was initiated. He received Solu- Medrol and a DuoNeb. He did receive CPAP and that made marked improvement in his respiratory difficulty and oxygenation. The multigrapher was able to get him up to 95% on room air. He did note that the patient had a lot of PVCs but no significant ischemic findings on monitoring. The patient also notes the following associated symptoms, weakness. The patient has [] relieving factors. Current pain is rated as []/10. [] Pt denies LOC, headache, fevers, chills, diaphoresis, visual changes, neck pain, chest pain, current nausea, abdominal pain, back pain, melena, hematochezia, urinary symptoms, numbness, lymphadenopathy, rash, or other complaints. ROS: See above HPI for pertinent positives & negatives. A total of 10 systems reviewed and were otherwise negative. PAST MEDICAL HISTORY:See Below , aspiration pneumonia, CAD PAST SURGICAL HISTORY:See Below, FAMILY HISTORY:See Below SOCIAL HISTORY:See Below, HOME MEDICATIONS:See Below ALLERGIES:See Below VITALS:See Below PHYSICAL EXAMINATION: GENERAL: Awake, tired and dyspneic-appearing, in mild distress HENT: Normocephalic, atraumatic. Oropharynx unremarkable. EYES: Normal conjunctiva. Sclera non-icteric. NECK: Inspection normal. Non-tender. Supple. No nuchal rigidity. FROM. No masses. RESPIRATORY: Coarse rhonchi and rales bilaterally. Increased respiratory effort. CARDIAC: Normal rate. Normal rhythm. No murmurs. No rubs. Extremities warm and well perfused. Pulses equal. No JVD. GI: Soft, non-distended. No tenderness to palpation. No rebound or guarding. No masses. RECTAL: Deferred. MUSCULOSKELETAL: Atraumatic. Chest examination reveals no tenderness. The back is symmetrical on inspection without obvious abnormality. There is no CVA tenderness to palpation. No joint edema. LOWER EXTREMITIES: Calves are equal size bilaterally and non-tender. No edema. Chronic venous discoloration. NEURO: Normal sensorium. No sensory or motor deficits noted. SKIN: No rash or jaundice noted. CRITICAL CARE: I have personally spent greater than 35 minutes of critical care time in the direct management of this patient. This includes bedside care, interpretation of diagnostic studies, and testing, discussion with consultants, patient, and family members, and other required patient management activities. This 35 minutes is in excess of all separately billable procedures. Chester Moise MD Past Med/Surg History Medical History (Updated 05/01/21 @ 01:16 by Misbah Chu MD) Aspiration pneumonia Social History Smoking Status: Unknown if ever smoked Second Hand Exposure: No; Hx Alcohol Use: Yes Alcohol type: beer Hx Substance Use: No Preferred Language: Indonesian Communication Ability: Effective Pharmacovigilance Specialist Required: No Beliefs That Will Affect Care: None marital status: Current Living Situation: Spouse How many Children do You have: 1 Feels Safe at Home: Yes Assistive Devices: Walker Allergies Allergies Allergy/AdvReac Type Severity Reaction Status Date / Time piperacillin Allergy Severe SHORTNESS Verified 04/30/21 19:28 OF BREATH tazobactam Allergy Severe SHORTNESS Verified 04/30/21 19:28 OF BREATH Sulfa (Sulfonamide Allergy Unknown SWELLING Verified 04/30/21 19:28 Antibiotics) propoxyphene AdvReac Unknown BLOOD Verified 04/30/21 19:28 PRESSURE DROPS Home Meds Home Medications Medication Instructions Recorded Confirmed hydroxychloroquine 200 mg tablet 200 mg PO BID 11/29/18 04/30/21 magnesium oxide 500 mg tablet 500 mg PO DAILY 11/29/18 04/30/21 prednisone 5 mg tablet 5 mg PO BID 11/29/18 04/30/21 sennosides 8.6 mg tablet (senna) 8.6 mg PO BID 11/29/18 04/30/21 albuterol sulfate 90 mcg/actuation 2 puff INHALATION BID 04/30/21 04/30/21 aerosol inhaler fluticasone 250 mcg-salmeterol 50 1 inh INHALATION BID 04/30/21 04/30/21 mcg/dose blistr powdr for inhalation omeprazole 20 mg capsule,delayed 20 mg PO DAILY 04/30/21 04/30/21 release Results & Data (ED) Vital Signs Vital Signs - 24 hr 04/30/21 18:56 04/30/21 18:57 04/30/21 19:00 Temperature Temperature Source Pulse Rate 108 H 107 H Pulse Rate [Right Apical] Pulse Rate from SpO2 Sensor 89 85 Respiratory Rate 29 H 28 H 28 H Respiratory Effort / Characteristics Spontaneous Labored Short of Breath Spontaneous Labored Short of Breath Respiratory Pattern Tachypnea Blood Pressure 95/57 L Blood Pressure [Right Arm] Blood Pressure Mean 69 Blood Pressure Mean [Right Arm] Pulse Oximetry 89 L 91 Oxygen Delivery Method CPAP CPAP CPAP Oxygen Flow Rate Fraction of Inspired Oxygen Sepsis Recent Fever Within 48 Hours Yes Sepsis New/Unexplained Change in Mental Status No Sepsis Action Taken by Nursing Physician Notified Pulse Oximetry Post Tiitration 04/30/21 19:03 04/30/21 19:05 04/30/21 19:10 Temperature Temperature Source Pulse Rate 103 H 106 H 104 H Pulse Rate [Right Apical] 107 H Pulse Rate from SpO2 Sensor 83 83 Respiratory Rate 30 H 25 H 24 Respiratory Effort / Characteristics Spontaneous Accessory Muscle Use Short of Breath Respiratory Pattern Rapid/Shallow Tachypnea Blood Pressure Blood Pressure [Right Arm] Blood Pressure Mean Blood Pressure Mean [Right Arm] Pulse Oximetry 93 94 88 L Oxygen Delivery Method CPAP CPAP Oxygen Flow Rate Fraction of Inspired Oxygen 100 100 Sepsis Recent Fever Within 48 Hours Sepsis New/Unexplained Change in Mental Status Sepsis Action Taken by Nursing Pulse Oximetry Post Tiitration 04/30/21 19:15 04/30/21 19:20 04/30/21 19:25 Temperature Temperature Source Pulse Rate 112 H 100 H 99 H Pulse Rate [Right Apical] Pulse Rate from SpO2 Sensor 80 79 75 Respiratory Rate 24 23 22 Respiratory Effort / Characteristics Respiratory Pattern Blood Pressure 93/52 L Blood Pressure [Right Arm] Blood Pressure Mean 65 Blood Pressure Mean [Right Arm] Pulse Oximetry 92 97 93 Oxygen Delivery Method CPAP CPAP CPAP Oxygen Flow Rate Fraction of Inspired Oxygen Sepsis Recent Fever Within 48 Hours Sepsis New/Unexplained Change in Mental Status Sepsis Action Taken by Nursing Pulse Oximetry Post Tiitration 04/30/21 19:27 04/30/21 19:30 04/30/21 19:31 Temperature Temperature Source Pulse Rate 106 H 105 H Pulse Rate [Right Apical] Pulse Rate from SpO2 Sensor 68 Respiratory Rate 22 22 Respiratory Effort / Characteristics Respiratory Pattern Blood Pressure 88/50 L Blood Pressure [Right Arm] Blood Pressure Mean 62 Blood Pressure Mean [Right Arm] Pulse Oximetry 92 91 Oxygen Delivery Method CPAP CPAP CPAP Oxygen Flow Rate 89 Fraction of Inspired Oxygen Sepsis Recent Fever Within 48 Hours Sepsis New/Unexplained Change in Mental Status Sepsis Action Taken by Nursing Pulse Oximetry Post Tiitration 91 04/30/21 19:32 04/30/21 19:33 04/30/21 19:35 Temperature 38.4 C H Temperature Source Axillary Pulse Rate Pulse Rate [Right Apical] 94 H Pulse Rate from SpO2 Sensor Respiratory Rate 21 Respiratory Effort / Characteristics Non-Labored Respiratory Pattern Blood Pressure Blood Pressure [Right Arm] 81/52 L Blood Pressure Mean Blood Pressure Mean [Right Arm] 61 Pulse Oximetry 92 89 L Oxygen Delivery Method CPAP CPAP Oxygen Flow Rate Fraction of Inspired Oxygen Sepsis Recent Fever Within 48 Hours Sepsis New/Unexplained Change in Mental Status Sepsis Action Taken by Nursing Pulse Oximetry Post Tiitration 04/30/21 19:40 04/30/21 19:45 04/30/21 19:50 Temperature Temperature Source Pulse Rate 94 H 96 H Pulse Rate [Right Apical] 93 H Pulse Rate from SpO2 Sensor 91 H 69 Respiratory Rate 22 20 20 Respiratory Effort / Characteristics Respiratory Pattern Blood Pressure Blood Pressure [Right Arm] 91/57 L Blood Pressure Mean Blood Pressure Mean [Right Arm] 68 Pulse Oximetry 90 98 100 Oxygen Delivery Method CPAP CPAP CPAP Oxygen Flow Rate Fraction of Inspired Oxygen Sepsis Recent Fever Within 48 Hours Sepsis New/Unexplained Change in Mental Status Sepsis Action Taken by Nursing Pulse Oximetry Post Tiitration 04/30/21 20:00 04/30/21 20:15 Temperature Temperature Source Pulse Rate 96 H Pulse Rate [Right Apical] 92 H 93 H Pulse Rate from SpO2 Sensor 94 H Respiratory Rate 18 19 Respiratory Effort / Characteristics Non-Labored Spontaneous Respiratory Pattern Blood Pressure Blood Pressure [Right Arm] 100/72 101/59 L Blood Pressure Mean Blood Pressure Mean [Right Arm] 81 73 Pulse Oximetry 98 99 Oxygen Delivery Method CPAP CPAP Oxygen Flow Rate Fraction of Inspired Oxygen Sepsis Recent Fever Within 48 Hours Sepsis New/Unexplained Change in Mental Status Sepsis Action Taken by Nursing Pulse Oximetry Post Tiitration Laboratory Data Result diagrams: 04/30/21 19:02 04/30/21 19:02 Lab Results 04/30/21 04/30/21 04/30/21 Range/Units 19:02 19:02 19:02 WBC 5.21 (4.8-10.8) K/uL RBC 4.83 (4.7-6.1) M/uL Hgb 14.6 (14.0-18.0) g/dL Hct 46.1 (42-52) % MCV 95.4 (80-100) fL MCH 30.2 (25-34) pg MCHC 31.7 L (32-36) g/dL RDW Std Deviation 52.7 H (36.4-46.3) fL RDW Coeff of Angela 15.1 H (11.5-14.5) % Plt Count 180 (130-400) K/uL MPV 10.7 H (7.4-10.4) fL Immature Gran % (Auto) 0.8 % Neut % (Auto) 61.0 % Lymph % (Auto) 34.9 % [place] % (Auto) 2.9 % Eos % (Auto) 0.2 % Baso % (Auto) 0.2 % Neut # (Auto) 3.18 (1.4-6.5) K/uL Lymph # (Auto) 1.82 (1.2-3.4) K/uL [place] # (Auto) 0.15 (0.11-0.59) K/uL Eos # (Auto) 0.01 (0-0.5) K/uL Baso # (Auto) 0.01 (0-0.2) K/uL Immature Gran # (Auto) 0.04 H (0.00-0.02) K/uL PT 10.8 (9.0-12.0) Seconds INR 1.1 (0.9-1.1) APTT 25.5 (21.0-31.0) Seconds PTT Ratio 1.0 VBG pH (7.36-7.41) VBG pCO2 (38-50) mmHg VBG pO2 mmHg VBG HCO3 mmol/L VBG O2 Saturation % VBG Base Excess mEq/L Barometric Pressure mm/Hg Sodium (136-145) mmol/L Potassium (3.5-5.1) mmol/L Chloride (98-107) mmol/L Carbon Dioxide (21-32) mmol/L Anion Gap (3-11) BUN (7-18) mg/dl Creatinine (0.6-1.4) mg/dl Est Cr Clr Drug Dosing ml/min Est GFR ( Amer) ml/min Est GFR (Non-Af Amer) ml/min BUN/Creatinine Ratio (10-20) Glucose (70-99) mg/dl Lactate (0.4-2.0) mmol/L Calcium (8.5-10.1) mg/dl Magnesium (1.8-2.4) mg/dl Total Bilirubin (0.2-1) mg/dl AST (15-37) U/L ALT (12-78) U/L Alkaline Phosphatase (45-117) U/L Troponin I (0-0.045) ng/ml NT-Pro-B Natriuret Pep (0-1800) pg/ml Total Protein (6.4-8.2) gm/dl Albumin (3.4-5.0) gm/dl Globulin (2.5-4.0) gm/dl Albumin/Globulin Ratio (0.9-2) Procalcitonin (0-0.5) ng/ml SARS-CoV-2 (PCR) (Negative) Influenza Type A (PCR) (Neg) Influenza Type B (PCR) (Neg) RSV (RT-PCR) (Neg) Blood Type A Positive Antibody Screen NEGATIVE 04/30/21 04/30/21 04/30/21 Range/Units 19:02 19:02 19:02 WBC (4.8-10.8) K/uL RBC (4.7-6.1) M/uL Hgb (14.0-18.0) g/dL Hct (42-52) % MCV (80-100) fL MCH (25-34) pg MCHC (32-36) g/dL RDW Std Deviation (36.4-46.3) fL RDW Coeff of Angela (11.5-14.5) % Plt Count (130-400) K/uL MPV (7.4-10.4) fL Immature Gran % (Auto) % Neut % (Auto) % Lymph % (Auto) % [place] % (Auto) % Eos % (Auto) % Baso % (Auto) % Neut # (Auto) (1.4-6.5) K/uL Lymph # (Auto) (1.2-3.4) K/uL [place] # (Auto) (0.11-0.59) K/uL Eos # (Auto) (0-0.5) K/uL Baso # (Auto) (0-0.2) K/uL Immature Gran # (Auto) (0.00-0.02) K/uL PT (9.0-12.0) Seconds INR (0.9-1.1) APTT (21.0-31.0) Seconds PTT Ratio VBG pH (7.36-7.41) VBG pCO2 (38-50) mmHg VBG pO2 mmHg VBG HCO3 mmol/L VBG O2 Saturation % VBG Base Excess mEq/L Barometric Pressure mm/Hg Sodium 137 (136-145) mmol/L Potassium 4.9 (3.5-5.1) mmol/L Chloride 105 (98-107) mmol/L Carbon Dioxide 23 (21-32) mmol/L Anion Gap 9.0 (3-11) BUN 44 H (7-18) mg/dl Creatinine 1.81 H (0.6-1.4) mg/dl Est Cr Clr Drug Dosing 31.0 ml/min Est GFR ( Amer) 37.8 ml/min Est GFR (Non-Af Amer) 32.7 ml/min BUN/Creatinine Ratio 24.4 H (10-20) Glucose 121 H (70-99) mg/dl Lactate 3.9 H* (0.4-2.0) mmol/L Calcium 9.2 (8.5-10.1) mg/dl Magnesium 2.0 (1.8-2.4) mg/dl Total Bilirubin 0.9 (0.2-1) mg/dl AST 35 (15-37) U/L ALT 32 (12-78) U/L Alkaline Phosphatase 84 (45-117) U/L Troponin I 0.103 H* (0-0.045) ng/ml NT-Pro-B Natriuret Pep (0-1800) pg/ml Total Protein 7.1 (6.4-8.2) gm/dl Albumin 3.0 L (3.4-5.0) gm/dl Globulin 4.1 H (2.5-4.0) gm/dl Albumin/Globulin Ratio 0.7 L (0.9-2) Procalcitonin 2.77 H (0-0.5) ng/ml SARS-CoV-2 (PCR) (Negative) Influenza Type A (PCR) (Neg) Influenza Type B (PCR) (Neg) RSV (RT-PCR) (Neg) Blood Type Antibody Screen 04/30/21 04/30/21 04/30/21 Range/Units 19:02 19:02 19:04 WBC (4.8-10.8) K/uL RBC (4.7-6.1) M/uL Hgb (14.0-18.0) g/dL Hct (42-52) % MCV (80-100) fL MCH (25-34) pg MCHC (32-36) g/dL RDW Std Deviation (36.4-46.3) fL RDW Coeff of Angela (11.5-14.5) % Plt Count (130-400) K/uL MPV (7.4-10.4) fL Immature Gran % (Auto) % Neut % (Auto) % Lymph % (Auto) % [place] % (Auto) % Eos % (Auto) % Baso % (Auto) % Neut # (Auto) (1.4-6.5) K/uL Lymph # (Auto) (1.2-3.4) K/uL [place] # (Auto) (0.11-0.59) K/uL Eos # (Auto) (0-0.5) K/uL Baso # (Auto) (0-0.2) K/uL Immature Gran # (Auto) (0.00-0.02) K/uL PT (9.0-12.0) Seconds INR (0.9-1.1) APTT (21.0-31.0) Seconds PTT Ratio VBG pH 7.33 L (7.36-7.41) VBG pCO2 47 (38-50) mmHg VBG pO2 26 mmHg VBG HCO3 24 mmol/L VBG O2 Saturation < 60.0 % VBG Base Excess -2.4 mEq/L Barometric Pressure 732.6 mm/Hg Sodium (136-145) mmol/L Potassium (3.5-5.1) mmol/L Chloride (98-107) mmol/L Carbon Dioxide (21-32) mmol/L Anion Gap (3-11) BUN (7-18) mg/dl Creatinine (0.6-1.4) mg/dl Est Cr Clr Drug Dosing ml/min Est GFR ( Amer) ml/min Est GFR (Non-Af Amer) ml/min BUN/Creatinine Ratio (10-20) Glucose (70-99) mg/dl Lactate (0.4-2.0) mmol/L Calcium (8.5-10.1) mg/dl Magnesium (1.8-2.4) mg/dl Total Bilirubin (0.2-1) mg/dl AST (15-37) U/L ALT (12-78) U/L Alkaline Phosphatase (45-117) U/L Troponin I (0-0.045) ng/ml NT-Pro-B Natriuret Pep 2919 H (0-1800) pg/ml Total Protein (6.4-8.2) gm/dl Albumin (3.4-5.0) gm/dl Globulin (2.5-4.0) gm/dl Albumin/Globulin Ratio (0.9-2) Procalcitonin (0-0.5) ng/ml SARS-CoV-2 (PCR) NEGATIVE (Negative) Influenza Type A (PCR) Negative (Neg) Influenza Type B (PCR) Negative (Neg) RSV (RT-PCR) Negative (Neg) Blood Type Antibody Screen Administered Medications Fluticasone/Vilanterol (Fluticasone/Vilanterol 200/25mcg 14 Puffs/Inhaler) 1 puffs INH QPM GOGO Stop: 05/30/21 21:29 Last Admin: 04/30/21 23:19 Dose: 1 puffs Documented by: [id number] Heparin Sodium (Porcine) (Heparin Sod 5,000 Unit/0.5 Ml Vial) 5,000 units SQ Q8 GOGO Stop: 05/30/21 21:59 Last Admin: 04/30/21 23:19 Dose: 5,000 units Documented by: [id number] Hydroxychloroquine Sulfate (Hydroxychloroquine Sulfate 200 Mg Tab) 200 mg PO BID GOGO Stop: 05/30/21 21:17 Last Admin: 04/30/21 23:19 Dose: 200 mg Documented by: [id number] Sodium Chloride (Nss 1000ml) 1,000 mls @ 60 mls/hr IV .[id number] ONE Stop: 05/01/21 13:06 Last Infusion: 04/30/21 21:58 Dose: 60 mls/hr Documented by: [id number] Admin: 04/30/21 20:56 Dose: 80 mls/hr Documented by: [id number] Meropenem 500 mg/ Syringe 10 mls @ 2 mls/min IV Q8H GOGO; Protocol Stop: 05/07/21 22:59 Last Admin: 04/30/21 23:19 Dose: 2 mls/min Documented by: [id number] Ipratropium [place] (Ipratropium [place] Neb Soln 0.02% 2.5 Ml Vial) 0.5 mg INH Q6R GOGO Stop: 05/30/21 21:17 Last Admin: 05/01/21 00:37 Dose: 0.5 mg Documented by: [id number] Admin: 04/30/21 22:23 Dose: 0.5 mg Documented by: [id number] Levalbuterol HCl (Levalbuterol 1.25mg/0.5ml Neb) 1.25 mg INH Q6R GOGO Stop: 05/30/21 21:17 Last Admin: 05/01/21 00:37 Dose: 1.25 mg Documented by: [id number] Admin: 04/30/21 22:23 Dose: 1.25 mg Documented by: [id number] Discontinued Medications Acetaminophen (Acetaminophen 1000 Mg/100 Ml Iv) 1,000 mg IV NOW STA Stop: 04/30/21 19:41 Last Admin: 04/30/21 19:51 Dose: 1,000 mg Documented by: [id number] Albuterol (Albut/Ipratrop 3mg/0.5mg Neb 3 Ml Vial) Confirm Administered Dose 3 ml .ROUTE .STK-MED ONE Stop: 04/30/21 18:57 Last Admin: 04/30/21 19:34 Dose: Not Given Documented by: [id number] Albuterol (Albut/Ipratrop 3mg/0.5mg Neb 3 Ml Vial) 3 ml NEB NOW STA Stop: 04/30/21 19:00 Last Admin: 04/30/21 19:08 Dose: 3 ml Documented by: [id number] Dexamethasone (Dexamethasone Sod Inj 4 Mg/Ml Vial) Confirm Administered Dose 4 mg .ROUTE .STK-MED ONE Stop: 04/30/21 20:13 Last Admin: 04/30/21 20:14 Dose: Not Given Documented by: [id number] Dexamethasone (Dexamethasone Sod Inj 4 Mg/Ml Vial) Confirm Administered Dose 4 mg .ROUTE .STK-MED ONE Stop: 04/30/21 21:57 Last Admin: 04/30/21 21:57 Dose: Not Given Documented by: [id number] Sodium Chloride (Nss 1000ml) 1,000 mls @ 150 mls/hr IV .[id number] GOGO Stop: 05/30/21 18:59 Last Infusion: 04/30/21 20:32 Dose: 0 mls/hr Documented by: [id number] Admin: 04/30/21 19:41 Dose: 150 mls/hr Documented by: [id number] Cefepime HCl (Maxipime) 2,000 mg in 20 mls @ 5 mls/min IV NOW STA; Protocol Stop: 04/30/21 19:03 Last Admin: 04/30/21 19:12 Dose: 5 mls/min Documented by: [id number] Vancomycin HCl 1,500 mg/ (Sodium Chloride) 530 mls @ 200 mls/hr IV NOW ONE Stop: 04/30/21 21:29 Last Infusion: 04/30/21 22:38 Dose: 0 mls/hr Documented by: [id number] Admin: 04/30/21 19:40 Dose: 200 mls/hr Documented by: [id number] Sodium Chloride (Nss 1000ml) 500 mls @ 999 mls/hr IV .Q31M ONE Stop: 04/30/21 19:33 Last Infusion: 04/30/21 19:51 Dose: 0 mls/hr Documented by: [id number] Admin: 04/30/21 19:12 Dose: 999 mls/hr Documented by: [id number] Clindamycin Phosphate 600 mg/ (Dextrose) 54 mls @ 100 mls/hr IV ONE ONE Stop: 04/30/21 19:58 Last Infusion: 04/30/21 20:51 Dose: 0 mls/hr Documented by: [id number] Admin: 04/30/21 20:14 Dose: 100 mls/hr Documented by: [id number] Sodium Chloride (Nss 1000ml) 500 mls @ 999 mls/hr IV .Q31M ONE Stop: 04/30/21 20:10 Last Infusion: 04/30/21 20:21 Dose: 0 mls/hr Documented by: [id number] Admin: 04/30/21 19:45 Dose: 999 mls/hr Documented by: [id number] Dexamethasone 4 mg/ Syringe 1 mls @ 1 mls/min IV ONE ONE Stop: 04/30/21 20:01 Last Admin: 04/30/21 20:14 Dose: 1 mls/min Documented by: [id number] Dexamethasone 4 mg/ Syringe 1 mls @ 1 mls/min IV ONE ONE Stop: 04/30/21 21:51 Last Admin: 04/30/21 21:57 Dose: 1 mls/min Documented by: [id number] Imaging Data Radiologist's Impression: Chest X-Ray 04/30/21 18:57 XR chest 1V portable CLINICAL HISTORY: SEPSIS. Evaluate cardiopulmonary status COMPARISON STUDY: 02/18/2021 TECHNIQUE: 1 view of the chest FINDINGS: Single frontal view of the chest demonstrates the cardiomediastinal silhouette to be within normal limits. Compared to the previous examination, there are persistent interstitial and alveolar opacities of the lung bases bilaterally. These have slightly increased in the findings are again suspicious for bilateral pneumonitis. There is no evidence for pleural effusion. There is no evidence for vascular congestion. There is no acute osseous pathology. IMPRESSION: Increasing persistent alveolar opacities of both lung bases most characteristic of by basilar pneumonia. ACT 112: Negative or not required by law. Electronically signed by: Abner Jim M.D. 04/30/2021 7:17 PM Discharge Plan Visit Data Chief Complaint: Respiratory Distress ED Provider: Chester Moise Discharge Problem: Hypoxia, Fever Discharge Instructions Interventions: ED Discharge Assessment Last Done: 04/30/21 21:23
[2021-04-30 19:12] LABS: Hematocrit (blood only) 46.1 % (42-52); Hemoglobin 14.6 g/dL (14.0-18.0); Mean Corpuscular Hemoglobin 30.2 pg (25-34); Mean Corpuscular Hgb Conc 31.7 g/dL (32-36); Mean Corpuscular Volume 95.4 fL (80-100); Mean Platelet Volume 10.7 fL (7.4-10.4); Platelet Count 180 K/uL (130-400); RDW Coefficient of Variation 15.1 % (11.5-14.5); RDW Standard Deviation 52.7 fL (36.4-46.3); Red Blood Count 4.83 M/uL (4.7-6.1); White Blood Count 5.21 K/uL (4.8-10.8)
--- NOTE | 2021-04-30 19:18 | XRay Report ---
XR chest 1V portable CLINICAL HISTORY: SEPSIS. Evaluate cardiopulmonary status COMPARISON STUDY: 02/18/2021 TECHNIQUE: 1 view of the chest FINDINGS: Single frontal view of the chest demonstrates the cardiomediastinal silhouette to be within normal li mits. Compared to the previous examination, there are persistent interstitial and alveolar opacities of the lung bases bilaterally. These have slightly increased in the findings are again suspicious for bilateral pneumonitis. There is no evidence for pleural effusion. There is no evidence for vascular congestion. There is no acute osseous pathology. IMPRESSION: Increasing persistent alveolar opacities of both lung bases most characteristic of by bas ilar pneumonia. ACT 112: Negative or not required by law. Electronically signed by: Abner Jim M.D. 04/30/2021 7:17 PM
[2021-04-30 19:22] LABS: Base Excess VBG -2.4 mEq/L; HCO3 VBG 24 mmol/L; PCO2 VBG 47 mmHg (38-50); PO2 VBG 26 mmHg; pH VBG 7.33 (7.36-7.41)
[2021-04-30 19:23] LABS: INR 1.1 (0.9-1.1); Partial Thromboplastin Time 25.5 Seconds (21.0-31.0); Prothrombin Time 10.8 Seconds (9.0-12.0)
[2021-04-30] MEDS ORDERED: CLINDAMYCIN 600 MG in DEXTROSE 5% 50 ML IV ONE (19:26)
[2021-04-30 19:29] LABS: BUN Creatinine Ratio 24.4 (10-20); Calcium 9.2 mg/dl (8.5-10.1); Est GFR (African American) 37.8 ml/min; Est GFR (Non-African American) 32.7 ml/min; Potassium 4.9 mmol/L (3.5-5.1)
[2021-04-30 19:35] LABS: Oxygen Saturation VBG < 60.0 %
[2021-04-30 19:38] LABS: Albumin Globulin Ratio 0.7 (0.9-2); Bilirubin,Total 0.9 mg/dl (0.2-1); Globulin 4.1 gm/dl (2.5-4.0); Total Protein 7.1 gm/dl (6.4-8.2); Troponin I 0.103 ng/ml (0-0.045)
[2021-04-30] MEDS ORDERED: ACETAMINOPHEN 1000 MG/100 ML IV IV STA (19:40)
[2021-04-30] MEDS ORDERED: dexAMETHasone 4 MG in SYRINGE 0 ML IV ONE ×2 (20:00→21:50)
[2021-04-30] MEDS ORDERED: DEXAMETHASONE SOD INJ 4 MG/ML VIAL ONE ×2 (20:12→21:56)
[2021-04-30 20:15] LABS: Influenza A virus by PCR Negative (Neg); Influenza B virus by PCR Negative (Neg); RSV by PCR Negative (Neg); SARS CoV2 RNA(COVID-19) InHosp NEGATIVE (Negative)
--- NOTE | 2021-04-30 20:21 | History & Physical Report ---
Date of Service April 30, 2021 Assessment & Plan (1) Severe sepsis: Plan: SIRS plus hypoxemia plus hypotension plus ARF plus lactic acidosis Secondary to pneumonia, history recurrent aspiration pneumonia Immunocompromised patient hx RA on chronic steroid Rx hx MRSA as per records Troponin elevation secondary to above in the setting of kidney dysfunction, hx nonobstructive CAD hx, CVA as per records bladder cancer post surgery Chronic anemia, hemoglobin better than baseline secondary to hemoconcentration Diarrhea rule out C. difficile past tobacco abuse PCU given hypotension Supplemental O2 CS, Meropenem, Vancomycin Decadron 1 dose now for possible adrenal insufficiency, continue current prednisone regimen Nebs RTC given bronchospasm causing hypoxemia Aspiration precautions Follow-up swallow eval Baseline UA, monitor creatinine/lactic acid response to IVF, renal ultrasound if without improvement Follow troponin, TTE if with progression Stool C. difficile DVT prophylaxis. Heparin subcu DNR Total critical care time was 45 minutes. Patient requesting updates from providers. Ms. Kathie Gutierrez, contact #[phone]. Text document was generated using [employer] voice recognition software. It may contain grammatical or spelling errors. Kindly contact undersigned for clarification of any documentation item in question. History of Present Illness Chief Complaint: Cough, shortness of breath Primary Care Provider: Bret Nash MD History obtained from the patient, family, and records. History somewhat limited from patient secondary to BiPAP. Medical history is significant for nonobstructive CAD, CVA as per records, hypertension not on meds, skin cancer sp surgery, bladder cancer post surgery, RA on chronic steroid therapy, past tobacco abuse, hx aspiration risk/pharyngoesophageal dysphagia as per records, bowel obstruction status post surgery, hx MRSA, chronic anemia (baseline hemoglobin 12-13). Last confinement January 2021 for aspiration pneumonia. Patient noted to be coughing this morning. Compliance with aspiration precautions at home as per . Worsening cough with shortness of breath later in the day. Vomiting with coughing. No chest pain/fluid retention as per patient . Patient also with diarrhea symptoms without abdominal pain as per . O2 sats 80s upon arrival at the ER. SBP 80s at one point during ER stay BiPAP initiated at the ER. Patient received neb treatment, clindamycin, vancomycin and cefepime at the ER. MEDICAL HISTORY: As above. SURGERIES: prostate biopsy, bladder tumor surgery, multiple cystoscopies, hemorrhoidectomy, bowel surgery/adhesiolysis, cataract surgery, partial gastrec mary jo, skin cancer surgery, laser trabeculoplasty, tonsillectomy, inguinal hernia repair, FAMILY HISTORY: Stroke, thyroid cancer, heart disease, diabetes. PERSONAL AND SOCIAL HISTORY: Past tobacco abuse. 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 Allergies Allergy/AdvReac Type Severity Reaction Status Date / Time piperacillin Allergy Severe SHORTNESS Verified 04/30/21 19:28 OF BREATH tazobactam Allergy Severe SHORTNESS Verified 04/30/21 19:28 OF BREATH Sulfa (Sulfonamide Allergy Unknown SWELLING Verified 04/30/21 19:28 Antibiotics) propoxyphene AdvReac Unknown BLOOD Verified 04/30/21 19:28 PRESSURE DROPS Home Medications Medication Instructions Recorded Confirmed Type hydroxychloroquine 200 mg tablet 200 mg PO BID 11/29/18 04/30/21 History magnesium oxide 500 mg tablet 500 mg PO DAILY 11/29/18 04/30/21 History prednisone 5 mg tablet 5 mg PO BID 11/29/18 04/30/21 History sennosides 8.6 mg tablet (senna) 8.6 mg PO BID 11/29/18 04/30/21 History albuterol sulfate 90 mcg/actuation 2 puff INHALATION BID 04/30/21 04/30/21 History aerosol inhaler fluticasone 250 mcg-salmeterol 50 1 inh INHALATION BID 04/30/21 04/30/21 History mcg/dose blistr powdr for inhalation omeprazole 20 mg capsule,delayed 20 mg PO DAILY 04/30/21 04/30/21 History release Past Med/Surg History Medical History (Updated 05/01/21 @ 01:16 by Misbah Chu MD) Aspiration pneumonia Social History Smoking Status: Unknown if ever smoked Second Hand Exposure: No; Hx Alcohol Use: Yes Alcohol type: beer Hx Substance Use: No Preferred Language: [place] Communication Ability: Effective 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 Operator Required: No Beliefs That Will Affect Care: None marital status: Current Living Situation: Spouse How many Children do You have: 1 Feels Safe at Home: Yes Assistive Devices: Walker Review of Systems Review of Systems: Could not be reliably obtained Physical Exam Physical Exam: GENERAL: Comfortable, no respiratory distress SKIN: Pallor, warm HEENT: Pale palpebral conjunctivae, no ptosis, dry buccal mucosa, BiPAP in place NECK : Supple, no tenderness CHEST : Decreased breath sounds, occasional expiratory wheezes, no tenderness HEART : RRR, no obvious murmurs ABDOMEN: Some distention, nontender EXTREMITIES : No LE swelling/tenderness, no other conspicuous deformities noted NEUROLOGIC : Coherent, no facial asymmetry, mild hearing impairment, no other gross focality Results & Data Results & Data ([facility]) Vital Signs (Past 12 Hours) Vital Signs Temp Pulse Pulse Resp BP BP Pulse Ox 04/30/21 20:00 96 H 92 H 18 100/72 98 04/30/21 19:50 96 H 20 100 04/30/21 19:45 93 H 20 91/57 L 98 04/30/21 19:40 94 H 22 90 04/30/21 19:35 94 H 21 81/52 L 89 L 04/30/21 19:33 92 04/30/21 19:32 38.4 C H 04/30/21 19:30 105 H 22 88/50 L 91 04/30/21 19:27 106 H 22 92 04/30/21 19:25 99 H 22 93 04/30/21 19:20 100 H 23 93/52 L 97 04/30/21 19:15 112 H 24 92 04/30/21 19:10 104 H 24 88 L 04/30/21 19:05 106 H 107 H 25 H 94 04/30/21 19:03 103 H 30 H 93 04/30/21 19:00 107 H 28 H 95/57 L 91 04/30/21 18:57 28 H 04/30/21 18:56 108 H 29 H 89 L Laboratory Results Laboratory Results WBC 5.21 K/uL (4.8-10.8) 04/30/21 19:02 RBC 4.83 M/uL (4.7-6.1) 04/30/21 19:02 Hgb 14.6 g/dL (14.0-18.0) 04/30/21 19:02 Hct 46.1 % (42-52) 04/30/21 19:02 MCV 95.4 fL (80-100) 04/30/21 19:02 MCH 30.2 pg (25-34) 04/30/21 19:02 MCHC 31.7 g/dL (32-36) L 04/30/21 19:02 RDW Std Deviation 52.7 fL (36.4-46.3) H 04/30/21 19:02 RDW Coeff of Angela 15.1 % (11.5-14.5) H 04/30/21 19:02 Plt Count 180 K/uL (130-400) 04/30/21 19:02 MPV 10.7 fL (7.4-10.4) H 04/30/21 19:02 PT 10.8 Seconds (9.0-12.0) 04/30/21 19:02 INR 1.1 (0.9-1.1) 04/30/21 19:02 APTT 25.5 Seconds (21.0-31.0) 04/30/21 19: PTT Ratio 1.0 04/30/21 19:02 VBG pH 7.33 (7.36-7.41) L 04/30/21 19:02 VBG pCO2 47 mmHg (38-50) 04/30/21 19:02 VBG pO2 26 mmHg 04/30/21 19:02 VBG HCO3 24 mmol/L 04/30/21 19:02 VBG O2 Saturation < 60.0 % 04/30/21 19:02 VBG Base Excess -2.4 mEq/L 04/30/21 19:02 Barometric Pressure 732.6 mm/Hg 04/30/21 19:02 Sodium 137 mmol/L (136-145) 04/30/21 19:02 Potassium 4.9 mmol/L (3.5-5.1) 04/30/21 19:02 Chloride 105 mmol/L (98-107) 04/30/21 19:02 Carbon Dioxide 23 mmol/L (21-32) 04/30/21 19:02 Anion Gap 9.0 (3-11) 04/30/21 19:02 BUN 44 mg/dl (7-18) H 04/30/21 19:02 Creatinine 1.81 mg/dl (0.6-1.4) H 04/30/21 19:02 Est Cr Clr Drug Dosing 31.0 ml/min 04/30/21 19:02 Est GFR ( Amer) 37.8 ml/min 04/30/21 19:02 Est GFR (Non-Af Amer) 32.7 ml/min 04/30/21 19:02 BUN/Creatinine Ratio 24.4 (10-20) H 04/30/21 19:02 Glucose 121 mg/dl (70-99) H 04/30/21 19:02 Lactate 3.9 mmol/L (0.4-2.0) H* 04/30/21 19:02 Calcium 9.2 mg/dl (8.5-10.1) 04/30/21 19:02 Magnesium 2.0 mg/dl (1.8-2.4) 04/30/21 19:02 Total Bilirubin 0.9 mg/dl (0.2-1) 04/30/21 19:02 AST 35 U/L (15-37) 04/30/21 19:02 ALT 32 U/L (12-78) 04/30/21 19:02 Alkaline Phosphatase 84 U/L (45-117) 04/30/21 19:02 Troponin I 0.103 ng/ml (0-0.045) H* 04/30/21 19:02 NT-Pro-B Natriuret Pep 2919 pg/ml (0-1800) H 04/30/21 19:02 Total Protein 7.1 gm/dl (6.4-8.2) 04/30/21 19:02 Albumin 3.0 gm/dl (3.4-5.0) L 04/30/21 19:02 Globulin 4.1 gm/dl (2.5-4.0) H 04/30/21 19:02 Albumin/Globulin Ratio 0.7 (0.9-2) L 04/30/21 19:02 Procalcitonin 2.77 ng/ml (0-0.5) H 04/30/21 19:02 SARS-CoV-2 (PCR) NEGATIVE (Negative) 04/30/21 19:04 Influenza Type A (PCR) Negative (Neg) 04/30/21 19:04 Influenza Type B (PCR) Negative (Neg) 04/30/21 19:04 RSV (RT-PCR) Negative (Neg) 04/30/21 19:04 Blood Type A Positive 04/30/21 19:02 Antibody Screen NEGATIVE 04/30/21 19:02 Impressions Chest X-Ray 04/30/21 18:57 XR chest 1V portable CLINICAL HISTORY: SEPSIS. Evaluate cardiopulmonary status COMPARISON STUDY: 02/18/2021 TECHNIQUE: 1 view of the chest FINDINGS: Single frontal view of the chest demonstrates the cardiomediastinal silhouette to be within normal limits. Compared to the previous examination, there are persistent interstitial and alveolar opacities of the lung bases bilaterally. These have slightly increased in the findings are again suspicious for bilateral pneumonitis. There is no evidence for pleural effusion. There is no evidence for vascular congestion. There is no acute osseous pathology. IMPRESSION: Increasing persistent alveolar opacities of both lung bases most characteristic of by basilar pneumonia. ACT 112: Negative or not required by law. Electronically signed by: Abner Jim M.D. 04/30/2021 7:17 PM Diagnostic Findings EKG as per my interpretation rate 105, sinus tachycardia, normal axis, RBBB, T wave abnormalities inferior leads, ST depression anterolateral leads, PVCs
[2021-04-30] MEDS ORDERED: SODIUM CHLORIDE 0.9% 1000ML 1,000 ML IV ONE (20:27)
[2021-04-30 20:47] LABS: Basophils # (auto) 0.01 K/uL (0-0.2); Basophils % (auto) 0.2 %; Eosinophils # (auto) 0.01 K/uL (0-0.5); Eosinophils % (auto) 0.2 %; Immature Granulocytes # (auto) 0.04 K/uL (0.00-0.02); Immature Granulocytes % (auto) 0.8 %; Lymphocytes # (auto) 1.82 K/uL (1.2-3.4); Lymphocytes % (auto) 34.9 %; Monocytes # (auto) 0.15 K/uL (0.11-0.59); Monocytes % (auto) 2.9 %; Neutrophils # (auto) 3.18 K/uL (1.4-6.5)
[2021-04-30] MEDS ORDERED: PROMETHAZINE HCL 12.5 MG in SODIUM CHLORIDE 0.9% 50 ML IV PRN (21:18)
[2021-04-30] MEDS ORDERED: ACETAMINOPHEN 325 MG TAB PO PRN (21:18)
[2021-04-30] MEDS: LEVALBUTEROL 1.25MG/0.5ML NEB INH SCH (22:23)
[2021-04-30] MEDS: IPRATROPIUM BROMIDE NEB SOLN 0.02% 2.5 ML VIAL INH SCH (22:23)
[2021-04-30] MEDS ORDERED: MEROPENEM CONSULT ACTIVE PRN (22:49)
[2021-04-30] MEDS: MEROPENEM 500 MG in SYRINGE 0 ML IV SCH (23:19)
[2021-04-30] MEDS: HYDROXYCHLOROQUINE SULFATE 200 MG TAB PO SCH (23:19)
[2021-04-30] MEDS: FLUTICASONE/VILANTEROL 200/25MCG 14 PUFFS/INHALER INH SCH (23:19)
[2021-04-30] MEDS: HEPARIN SOD 5,000 UNIT/0.5 ML VIAL SQ SCH (23:19)
[2021-04-30 23:22] LABS: Appearance Urine Cloudy (Clear); Bilirubin Urine Negative (Negative); Blood Urine Negative (Negative); Color Urine Dark Yellow; Epithelial Cell Urine Auto >30 /lpf (0-5); Glucose Urine UA Negative (Negative); Ketones Urine Trace (Negative); Leukocyte Esterase Urine Negative (Negative); Nitrite Urine Negative (Negative); Protein Urine 1+ (Negative); Specific Gravity Urine 1.024 (1.000-1.030); Urobilinogen Urine Negative (Negative)
[2021-04-30 23:42] LABS: Bacteria Urine Automated 1+ (Negative); RBC Urine Automated 0-4 /hpf (0-4)
[2021-05-01] MEDS: LEVALBUTEROL 1.25MG/0.5ML NEB INH SCH ×4 (00:37→19:42)
[2021-05-01] MEDS: IPRATROPIUM BROMIDE NEB SOLN 0.02% 2.5 ML VIAL INH SCH ×4 (00:37→19:42)
[2021-05-01] MEDS ORDERED: XOPENEX/ATROVENT 1.25mg/0.5MG NEB COMBO NEB SCH (01:00)
[2021-05-01] MEDS: HEPARIN SOD 5,000 UNIT/0.5 ML VIAL SQ SCH ×3 (05:06→20:26)
[2021-05-01 05:32] LABS: Hematocrit (blood only) 40.3 % (42-52); Hemoglobin 12.5 g/dL (14.0-18.0); Mean Corpuscular Hemoglobin 29.1 pg (25-34); Mean Corpuscular Volume 93.7 fL (80-100); Mean Platelet Volume 10.7 fL (7.4-10.4); Platelet Count 140 K/uL (130-400); RDW Coefficient of Variation 15.2 % (11.5-14.5); RDW Standard Deviation 52.6 fL (36.4-46.3); White Blood Count 5.47 K/uL (4.8-10.8)
[2021-05-01 06:12] LABS: BUN Creatinine Ratio 33.7 (10-20); Calcium 8.2 mg/dl (8.5-10.1); Creatinine Clr Calc Pharmacy 42.5 ml/min; Est GFR (African American) 55.4 ml/min; Est GFR (Non-African American) 47.8 ml/min; Potassium 3.8 mmol/L (3.5-5.1); Troponin I 0.075 ng/ml (0-0.045)
[2021-05-01] MEDS ORDERED: VANCOMYCIN HCL 1,250 MG in SODIUM CHLORIDE 0.9% 250 ML IV ONE (06:30)
[2021-05-01] MEDS: MEROPENEM 500 MG in SYRINGE 0 ML IV SCH ×3 (06:46→23:54)
--- NOTE | 2021-05-01 06:58 | Pharmacy Report ---
Pharmacy Vanc AUC Short Note - Date of Service May 01, 2021 - Assessment & Plan Assessment 89 year old M receiving empiric vancomycin and meropenem for treatment of severe sepsis secondary to pneumonia in patient with history of recurrent aspiration pneumonia. Pertinent microbiologic data includes: MRSA nasal swab negative, blood and sputum cultures pending. RADHA on admission, SCr of 1.81 mg/dL, now improved to 1.32 mg/dL. Lactate and procalcitonin also elevated on admission. Should reassess ongoing need for vancomycin now that MRSA swab is negative. Okay for now in light of severe sepsis. Plan Vancomycin * Loading dose of 1500 mg (~19 mg/kg) given in ED at 1940 on 04/30/21 * Random vanco level ordered for this morning in light of RADHA and returned at 9.5 mcg/mL * AUC/VIJAY is the preferred PK/PD target for vancomycin * AUC guided dosing is effective and associated with decreased risk of nephrotoxicity compared to traditional trough targets * Ordered dose of vancomycin 1250 mg IV q24h is expected to yield trough level of ~20 mcg/mL is predicted to achieve target AUC/VIJAY of 400-600 mg/L.hr and may be associated with a 18 % risk of nephrotoxicity * Trough level to be obtained once at steady-state or with further change in renal function Meropenem * Target dose of 500 mg IV q6h, reduced to q8h for eCrCl ~43 mL/min Pharmacy will continue to follow and will adjust dose/frequency as necessary. Thank you.
[2021-05-01 07:13] LABS: Basophils # (auto) 0.01 K/uL (0-0.2); Basophils % (auto) 0.2 %; Eosinophils # (auto) 0.01 K/uL (0-0.5); Eosinophils % (auto) 0.2 %; Immature Granulocytes # (auto) 0.06 K/uL (0.00-0.02); Immature Granulocytes % (auto) 1.1 %; Lymphocytes # (auto) 0.47 K/uL (1.2-3.4); Lymphocytes % (auto) 8.6 %; Monocytes # (auto) 0.15 K/uL (0.11-0.59); Monocytes % (auto) 2.7 %; Neutrophils # (auto) 4.77 K/uL (1.4-6.5); Neutrophils % (auto) 87.2 %
--- NOTE | 2021-05-01 08:52 | Electrocardiogram Report ---
Test Reason : Blood Pressure : / mmHG Vent. Rate : 107 BPM Atrial Rate : 107 BPM P-R Int : 174 ms QRS Dur : 138 ms QT Int : 364 ms P-R-T Axes : 081 008 022 degrees QTc Int : 485 ms Sinus tachycardia with frequent Premature ventricular complexes Possible Left atrial enlargement Right bundle branch block Inferior infarct , age undetermined Abnormal ECG When compared with ECG of 18-FEB-2021 08:27, Premature ventricular complexes are now Present Inferior infarct is now Present QT has shortened Confirmed by Basil Gant ([id number]) on 05/01/2021 8:51:42 AM Referred By: REFERRED SELF Confirmed By:Carlitos Gant
[2021-05-01] MEDS: PANTOprazole 40 MG TAB PO SCH (08:54)
[2021-05-01] MEDS: HYDROXYCHLOROQUINE SULFATE 200 MG TAB PO SCH ×2 (08:55→20:26)
[2021-05-01] MEDS: predniSONE 5 MG TAB PO SCH ×2 (09:21→20:25)
--- NOTE | 2021-05-01 18:34 | Hospitalist Progress Note ---
Date of Service May 01, 2021 Assessment & Plan (1) Severe sepsis: Plan: SIRS plus hypoxemia plus hypotension plus ARF plus lactic acidosis Secondary to pneumonia, history recurrent aspiration pneumonia Immunocompromised patient hx RA on chronic steroid Rx He is resuscitated at this point and is oxygenating well on room air. He has been afebrile for almost 24 hours now. Continue current therapy overnight with continue telemetry monitoring. (2) Aspiration pneumonia: Plan: Flu and Covid swabs were negative and patient is known to have a high risk for aspiration after her most recent swallow study. He had been clear at that time that both he and his understood the risks of him eating by mouth and she has been feeding him via pured diet at home. Patient states he woke up feeling poorly and symptoms progressed throughout the day prior to arrival. Likely this was secondary to aspiration although there was no exact event that occurred he can remember. Continue broad-spectrum coverage with Merrem and vancomycin at this time as patient is improved and convert to oral therapy tomorrow if still doing well. Continue speech modifications such as chin tuck with swallows, no straws and strict aspiration precautions while eating as well as postprandial oral care. He request that his diet be changed from a minced and moist to a pured diet which was done. (3) Acute kidney injury: Plan: Elevated creatinine in setting of sepsis to 1.81, decreased to 1.32 after fluid resuscitation today. Patient is eating well. Fluids were turned off and will trend BMP in a.m. Baseline creatinine is around 1. (4) Hypoxia: Plan: This has resolved with treatment overnight. (5) Rheumatoid arthritis: Plan: Patient is immunosuppressed at baseline on Plaquenil and prednisone. He contin ues on this currently. (6) Bladder cancer: Plan: History of bladder cancer status post surgery status post ileal conduit. Yellow urine is in ileostomy this evening (7) DVT prophylaxis: Plan: Heparin DNR/DNI Disposition-pending PT/OT evaluations. Razia Campos DO [facility] hospitalist Admission and Anticipated Discharge Date Admission Date: April 30, 2021 Subjective 89-year-old man presented with severe sepsis secondary to aspiration pneumonia. He is immunocompromised patient with a history of rheumatoid arthritis on chronic steroids. He was placed on meropenem and vancomycin and is doing much better today. His T-max overnight was 38.4 at 7:30 PM last evening. He is remained afebrile since then. He was n.p.o. and switched over to a minced and moist diet today as this patient has a care alert in his chart and does not wish for any more speech pathology evaluations. He is understanding that he is an aspiration risk and is not interested in a feeding tube or alternative feeding method. He otherwise denies any chest pain, diarrhea, nausea or other issues. Patient does ask to have his food more pured which we will adjust. Review of Systems Review of Systems: All systems reviewed and negative except as indicated above. Physical Exam Physical Exam: CONSTITUTIONAL: WNWD, vitals as above, generally well- appearing, NAD EYES: normal conjunctivae, no scleral icterus ENT: external ear and nose normal, MMM NECK: trachea midline RESPIRATORY: clear to auscultation bilaterally, no crackles, rales or wheezes, normal respiratory effort CARDIOVASCULAR: regular rate and rhythm, S1 and 2 heard without murmurs, gallops or rubs, no JVD, no peripheral edema CHEST: inspection of chest was normal GASTROINTESTINAL: soft, nontender, ND, no guarding MUSCULOSKELETAL: strength 5/5 throughout, head is normocephalic and atraumatic, no gross focal deficits. SKIN: warm and dry NEUROLOGIC: CN 2-12 grossly intact, normal cognition, normal speech, no tremor. No gross focal deficits. PSYCHIATRIC: alert cooperative and oriented to person, place and time. Euthymic mood, makes good eye contact, language grossly intact, recent and remote memory grossly intact--some memory issues noted. Results & Data Results & Data ([facility]) Vital Signs (Past 12 Hours) Vital Signs Pulse Resp Pulse Ox 05/01/21 12:49 89 16 96 05/01/21 07:03 85 16 98 Laboratory Results Short CBC 04/30/21 05/01/21 Range/Units 19:02 04:49 WBC 5.21 5.47 (4.8-10.8) K/uL Hgb 14.6 12.5 L (14.0-18.0) g/dL Hct 46.1 40.3 L (42-52) % Plt Count 180 140 (130-400) K/uL BMP 04/30/21 05/01/21 19:02 04:49 Sodium 137 137 Potassium 4.9 3.8 D Chloride 105 109 H Carbon Dioxide 23 23 BUN 44 H 45 H Creatinine 1.81 H 1.32 D Glucose 121 H 119 H Calcium 9.2 8.2 L Cardiac Enzymes 04/30/21 04/30/21 05/01/21 Range/Units 19:02 20:51 04:49 Troponin I 0.103 H* 0.129 H* 0.075 H* (0-0.045) ng/ml Liver Function 04/30/21 Range/Units 19:02 Total Bilirubin 0.9 (0.2-1) mg/dl AST 35 (15-37) U/L ALT 32 (12-78) U/L Alkaline Phosphatase 84 (45-117) U/L Albumin 3.0 L (3.4-5.0) gm/dl Urine 04/30/21 Range/Units 22:35 Urine Color Dark Yellow Urine Appearance Cloudy A (Clear) Urine pH 6.0 (4.5-7.5) Ur Specific Pollock 1.024 (1.000-1.030) Urine Protein 1+ H (Negative) Urine Glucose (UA) Negative (Negative) Medications Administered Current Inpatient Medications Acetaminophen (Acetaminophen 325 Mg Tab) 650 mg PO Q4H PRN PRN Reason: Pain or Fever Stop: 05/30/21 21:17 Fluticasone/Vilanterol (Fluticasone/Vilanterol 200/25mcg 14 Puffs/Inhaler) 1 puffs INH QPM [facility] Stop: 05/30/21 21:29 Last Admin: 04/30/21 23:19 Dose: 1 puffs Documented by: Heparin Sodium (Porcine) (Heparin Sod 5,000 Unit/0.5 Ml Vial) 5,000 units SQ Q8 GOGO Stop: 05/30/21 21:59 Last Admin: 05/01/21 14:13 Dose: 5,000 units Documented by: Hydroxychloroquine Sulfate (Hydroxychloroquine Sulfate 200 Mg Tab) 200 mg PO BID GOGO Stop: 05/30/21 21:17 Last Admin: 05/01/21 08:55 Dose: 200 mg Documented by: Promethazine HCl 12.5 mg/ (Sodium Chloride) 50.5 mls @ 202 mls/hr IV Q6H PRN PRN Reason: Nausea And Vomiting Stop: 05/30/21 21:17 Meropenem 500 mg/ Syringe 10 mls @ 2 mls/min IV Q8H GOGO; Protocol Stop: 12/08/21 22:59 Last Admin: 05/01/21 14:13 Dose: 2 mls/min Documented by: Vancomycin HCl 1,250 mg/ (Sodium Chloride) 275 mls @ 200 mls/hr IV Q24H [facility] Stop: 05/09/21 05:59 Ipratropium Whitfield (Ipratropium [place] Neb Soln 0.02% 2.5 Ml Vial) 0.5 mg INH Q6R GOGO Stop: 05/30/21 21:17 Last Admin: 05/01/21 12:49 Dose: 0.5 mg Documented by: Levalbuterol HCl (Levalbuterol 1.25mg/0.5ml Neb) 1.25 mg INH Q6R [facility] Stop: 05/30/21 21:17 Last Admin: 05/01/21 12:49 Dose: 1.25 mg Documented by: Miscellaneous Information (Vancomycin Consult Active) 1 ea N/A UD PRN PRN Reason: Consult Stop: 05/30/21 18:59 Miscellaneous Information (Meropenem Consult Active) 1 ea N/A UD PRN PRN Reason: Consult Stop: 05/30/21 22:48 Pantoprazole Sodium (Pantoprazole 40 Mg Tab) 40 mg PO DAILY [facility] Stop: 05/31/21 08:59 Last Admin: 05/01/21 08:54 Dose: 40 mg Documented by: Prednisone (Prednisone 5 Mg Tab) 5 mg PO BID [facility] Stop: 05/31/21 08:59 Last Admin: 05/01/21 09:21 Dose: 5 mg Documented by:
[2021-05-01] MEDS: FLUTICASONE/VILANTEROL 200/25MCG 14 PUFFS/INHALER INH SCH (20:25)
[2021-05-02] MEDS: LEVALBUTEROL 1.25MG/0.5ML NEB INH SCH ×2 (02:21→07:43)
[2021-05-02] MEDS: IPRATROPIUM BROMIDE NEB SOLN 0.02% 2.5 ML VIAL INH SCH ×2 (02:21→07:42)
[2021-05-02] MEDS ORDERED: VANCOMYCIN HCL 1,250 MG in SODIUM CHLORIDE 0.9% 250 ML IV SCH (06:00)
[2021-05-02] MEDS: HEPARIN SOD 5,000 UNIT/0.5 ML VIAL SQ SCH ×2 (06:26→14:32)
[2021-05-02] MEDS: MEROPENEM 500 MG in SYRINGE 0 ML IV SCH (07:15)
[2021-05-02] MEDS: HYDROXYCHLOROQUINE SULFATE 200 MG TAB PO SCH (08:28)
[2021-05-02] MEDS: predniSONE 5 MG TAB PO SCH (08:28)
[2021-05-02] MEDS: PANTOprazole 40 MG TAB PO SCH (08:28)
[2021-05-02 09:23] LABS: Hematocrit (blood only) 37.5 % (42-52); Hemoglobin 12.2 g/dL (14.0-18.0); Mean Corpuscular Hemoglobin 30.1 pg (25-34); Mean Corpuscular Hgb Conc 32.5 g/dL (32-36); Mean Corpuscular Volume 92.6 fL (80-100); Mean Platelet Volume 11.2 fL (7.4-10.4); Platelet Count 163 K/uL (130-400); RDW Coefficient of Variation 15.2 % (11.5-14.5); RDW Standard Deviation 51.6 fL (36.4-46.3); Red Blood Count 4.05 M/uL (4.7-6.1); White Blood Count 8.23 K/uL (4.8-10.8)
[2021-05-02 09:46] LABS: BUN Creatinine Ratio 42.8 (10-20); Creatinine Clr Calc Pharmacy 62.3 ml/min; Est GFR (African American) 88.1 ml/min; Magnesium 2.2 mg/dl (1.8-2.4); Phosphorus 2.4 mg/dl (2.5-4.9); Potassium 3.8 mmol/L (3.5-5.1)
[2021-05-02] MEDS ORDERED: LEVALBUTEROL 1.25MG/0.5ML NEB INH PRN (11:30)
[2021-05-02] MEDS ORDERED: IPRATROPIUM BROMIDE NEB SOLN 0.02% 2.5 ML VIAL INH PRN (11:30)
[2021-05-02] MEDS ORDERED: CLINDAMYCIN HCL 150 MG CAP PO SCH (12:00)
--- NOTE | 2021-05-02 14:58 | Discharge Summary ---
Date of Service May 02, 2021 Admission HPI Per Admitting Provider History obtained from the patient, family, and records. History somewhat limited from patient secondary to BiPAP. Medical history is significant for nonobstructive CAD, CVA as per records, hypertension not on meds, skin cancer sp surgery, bladder cancer post surgery, RA on chronic steroid therapy, past tobacco abuse, hx aspiration risk/pharyngoesophageal dysphagia as per records, bowel obstruction status post surgery, hx MRSA, chronic anemia (baseline hemoglobin 12-13). Last confinement January 2021 for aspiration pneumonia. Patient noted to be coughing this morning. Compliance with aspiration precau tions at home as per . Worsening cough with shortness of breath later in the day. Vomiting with coughing. No chest pain/fluid retention as per patient . Patient also with diarrhea symptoms without abdominal pain as per . O2 sats 80s upon arrival at the ER. SBP 80s at one point during ER stay BiPAP initiated at the ER. Patient received neb treatment, clindamycin, vancomycin and cefepime at the ER. MEDICAL HISTORY: As above. SURGERIES: prostate biopsy, bladder tumor surgery, multiple cystoscopies, hemorrhoidectomy, bowel surgery/adhesiolysis, cataract surgery, partial gastrectomy, skin cancer surgery, laser trabeculoplasty, tonsillectomy, inguinal hernia repair, FAMILY HISTORY: Stroke, thyroid cancer, heart disease, diabetes. PERSONAL AND SOCIAL HISTORY: Past tobacco abuse. 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 Admission Exam Per Admitting Provider GENERAL: Comfortable, no respiratory distress SKIN: Pallor, warm HEENT: Pale palpebral conjunctivae, no ptosis, dry buccal mucosa, BiPAP in place NECK : Supple, no tenderness CHEST : Decreased breath sounds, occasional expiratory wheezes, no tenderness HEART : RRR, no obvious murmurs ABDOMEN: Some distention, nontender EXTREMITIES : No LE swelling/tenderness, no other conspicuous deformities noted NEUROLOGIC : Coherent, no facial asymmetry, mild hearing impairment, no other gross focality Principal Diagnosis Severe sepsis Aspiration pneumonia Immunocompromise state Rheumatoid arthritis Hypoxia-resolved Acute kidney injury-resolved Discharge Exam CONSTITUTIONAL: WNWD, vitals as above, generally well-appearing, NAD EYES: normal conjunctivae, no scleral icterus ENT: external ear and nose normal, MMM NECK: trachea midline RESPIRATORY: clear to auscultation bilaterally, no crackles, rales or wheezes, normal respiratory effort CARDIOVASCULAR: regular rate and rhythm, S1 and 2 heard without murmurs, gallops or rubs, no JVD, no peripheral edema CHEST: inspection of chest was normal GASTROINTESTINAL: soft, nontender, ND, no guarding MUSCULOSKELETAL: strength 5/5 throughout, head is normocephalic and atraumatic, no gross focal deficits. SKIN: warm and dry NEUROLOGIC: CN 2-12 grossly intact, normal cognition, normal speech, no tremor. No gross focal deficits. PSYCHIATRIC: alert cooperative and oriented to person, place and time. Euthymic mood, makes good eye contact, language grossly intact, recent and remote memory grossly intact--some memory issues noted. Discharge Data Allergies Allergy/AdvReac Type Severity Reaction Status Date / Time piperacillin Allergy Severe SHORTNESS Verified 04/30/21 19:28 OF BREATH tazobactam Allergy Severe SHORTNESS Verified 04/30/21 19:28 OF BREATH Sulfa (Sulfonamide Allergy Unknown SWELLING Verified 04/30/21 19:28 Antibiotics) propoxyphene AdvReac Unknown BLOOD Verified 04/30/21 19:28 PRESSURE DROPS Consultations 04/30/21 19:40 ED Decision to Admit Stat Ordered Studies Laboratory Results WBC 8.23 K/uL (4.8-10.8) 05/02/21 08:21 RBC 4.05 M/uL (4.7-6.1) L 05/02/21 08:21 Hgb 12.2 g/dL (14.0-18.0) L 05/02/21 08:21 Hct 37.5 % (42-52) L 05/02/21 08:21 MCV 92.6 fL (80-100) 05/02/21 08:21 MCH 30.1 pg (25-34) 05/02/21 08:21 MCHC 32.5 g/dL (32-36) 05/02/21 08:21 RDW Std Deviation 51.6 fL (36.4-46.3) H 05/02/21 08:21 RDW Coeff of Angela 15.2 % (11.5-14.5) H 05/02/21 08:21 Plt Count 163 K/uL (130-400) 05/02/21 08:21 MPV 11.2 fL (7.4-10.4) H 05/02/21 08:21 Immature Gran % (Auto) 1.1 % 05/01/21 04:49 Neut % (Auto) 87.2 % 05/01/21 04:49 Lymph % (Auto) 8.6 % 05/01/21 04:49 [place] % (Auto) 2.7 % 05/01/21 04:49 Eos % (Auto) 0.2 % 05/01/21 04:49 Baso % (Auto) 0.2 % 05/01/21 04:49 Neut # (Auto) 4.77 K/uL (1.4-6.5) 05/01/21 04:49 Lymph # (Auto) 0.47 K/uL (1.2-3.4) L 05/01/21 04:49 [place] # (Auto) 0.15 K/uL (0.11-0.59) 05/01/21 04:49 Eos # (Auto) 0.01 K/uL (0-0.5) 05/01/21 04:49 Baso # (Auto) 0.01 K/uL (0-0.2) 05/01/21 04:49 Immature Gran # (Auto) 0.06 K/uL (0.00-0.02) H 05/01/21 04:49 PT 10.8 Seconds (9.0-12.0) 04/30/21 19:02 INR 1.1 (0.9-1.1) 04/30/21 19:02 APTT 25.5 Seconds (21.0-31.0) 04/30/21 19:02 PTT Ratio 1.0 04/30/21 19:02 VBG pH 7.33 (7.36-7.41) L 04/30/21 19:02 VBG pCO2 47 mmHg (38-50) 04/30/21 19:02 VBG pO2 26 mmHg 04/30/21 19:02 VBG HCO3 24 mmol/L 04/30/21 19:02 VBG O2 Saturation < 60.0 % 04/30/21 19:02 VBG Base Excess -2.4 mEq/L 04/30/21 19:02 Barometric Pressure 732.6 mm/Hg 04/30/21 19:02 Sodium 141 mmol/L (136-145) 05/02/21 08:21 Potassium 3.8 mmol/L (3.5-5.1) 05/02/21 08:21 Chloride 111 mmol/L (98-107) H 05/02/21 08:21 Carbon Dioxide 23 mmol/L (21-32) 05/02/21 08:21 Anion Gap 7.0 (3-11) 05/02/21 08:21 BUN 39 mg/dl (7-18) H 05/02/21 08:21 Creatinine 0.90 mg/dl (0.6-1.4) D 05/02/21 08:21 Est Cr Clr Drug Dosing 62.3 ml/min 05/02/21 08:21 Est GFR ( Amer) 88.1 ml/min 05/02/21 08:21 Est GFR (Non-Af Amer) 76.0 ml/min 05/02/21 08:21 BUN/Creatinine Ratio 42.8 (10-20) H 05/02/21 08:21 Glucose 90 mg/dl (70-99) 05/02/21 08:21 Lactate Cancelled 04/30/21 20:52 Calcium 9.0 mg/dl (8.5-10.1) 05/02/21 08:21 Phosphorus 2.4 mg/dl (2.5-4.9) L 05/02/21 08:21 Magnesium 2.2 mg/dl (1.8-2.4) 05/02/21 08:21 Total Bilirubin 0.9 mg/dl (0.2-1) 04/30/21 19:02 AST 35 U/L (15-37) 04/30/21 19:02 ALT 32 U/L (12-78) 04/30/21 19:02 Alkaline Phosphatase 84 U/L (45-117) 04/30/21 19:02 Troponin I 0.075 ng/ml (0-0.045) H* 05/01/21 04:49 NT-Pro-B Natriuret Pep 2919 pg/ml (0-1800) H 04/30/21 19:02 Total Protein 7.1 gm/dl (6.4-8.2) 04/30/21 19:02 Albumin 3.0 gm/dl (3.4-5.0) L 04/30/21 19:02 Globulin 4.1 gm/dl (2.5-4.0) H 04/30/21 19:02 Albumin/Globulin Ratio 0.7 (0.9-2) L 04/30/21 19:02 Procalcitonin 2.77 ng/ml (0-0.5) H 04/30/21 19:02 Urine Color Dark Yellow 04/30/21 22:35 Urine Appearance Cloudy (Clear) A 04/30/21 22:35 Urine pH 6.0 (4.5-7.5) 04/30/21 22:35 Ur Specific [place] 1.024 (1.000-1.030) 04/30/21 22:35 Urine Protein 1+ (Negative) H 04/30/21 22:35 Urine Glucose (UA) Negative (Negative) 04/30/21 22:35 Urine Ketones Trace (Negative) H 04/30/21 22:35 Urine Blood Negative (Negative) 04/30/21 22:35 Urine Nitrite Negative (Negative) 04/30/21 22:35 Urine Bilirubin Negative (Negative) 04/30/21 22:35 Urine Urobilinogen Negative (Negative) 04/30/21 22:35 Ur Leukocyte Esterase Negative (Negative) 04/30/21 22:35 Urine WBC (Auto) 10-30 /hpf (0-5) H 04/30/21 22:35 Urine RBC (Auto) 0-4 /hpf (0-4) 04/30/21 22:35 U Hyaline Cast (Auto) 5-10 /lpf (0-5) H 04/30/21 22:35 U Epithel Cells (Auto) >30 /lpf (0-5) H 04/30/21 22:35 Urine Bacteria (Auto) 1+ (Negative) H 04/30/21 22:35 Ur Renal Epithelial Cell 5-10 /lpf (0-5) H 04/30/21 22:35 Granular Casts 1-5 /lpf (0) H 04/30/21 22:35 Urine Yeast Present (None Prsent) A 04/30/21 22:35 Nasal Screen MRSA (PCR) Negative (Negative) 04/30/21 20:25 Random Vancomycin 9.5 mcg/ml 05/01/21 04:49 SARS-CoV-2 (PCR) NEGATIVE (Negative) 04/30/21 19:04 Influenza Type A (PCR) Negative (Neg) 04/30/21 19:04 Influenza Type B (PCR) Negative (Neg) 04/30/21 19:04 RSV (RT-PCR) Negative (Neg) 04/30/21 19:04 Blood Type A Positive 04/30/21 19:02 Antibody Screen NEGATIVE 04/30/21 19:02 Impressions Chest X-Ray 04/30/21 18:57 XR chest 1V portable CLINICAL HISTORY: SEPSIS. Evaluate cardiopulmonary status COMPARISON STUDY: 02/18/2021 TECHNIQUE: 1 view of the chest FINDINGS: Single frontal view of the chest demonstrates the cardiomediastinal silhouette to be within normal limits. Compared to the previous examination, there are persistent interstitial and alveolar opacities of the lung bases bilaterally. These have slightly increased in the findings are again suspicious for bilateral pneumonitis. There is no evidence for pleural effusion. There is no evidence for vascular congestion. There is no acute osseous pathology. IMPRESSION: Increasing persistent alveolar opacities of both lung bases most characteristic of by basilar pneumonia. ACT 112: Negative or not required by law. Electronically signed by: Abner Jim M.D. 04/30/2021 7:17 PM Hospital Course (1) Severe sepsis: SIRS plus hypoxemia plus hypotension plus ARF plus lactic acidosis Secondary to pneumonia, history recurrent aspiration pneumonia Immunocompromised patient hx RA on chronic steroid Rx He is resuscitated at this point and is oxygenating well on room air. He has been afebrile for almost 24 hours now. Continue current therapy overnight with continue telemetry monitoring. (2) Aspiration pneumonia: Flu and Covid swabs were negative and patient is known to have a high risk for aspiration after her most recent swallow study. He had been clear at that time that both he and his understood the risks of him eating by mouth and she has been feeding him via pured diet at home. Patient states he woke up feeling poorly and symptoms progressed throughout the day prior to arrival. Likely this was secondary to aspiration although there was no exact event that occurred he can remember. Continue broad-spectrum coverage with Merrem and vancomycin at this time as patient is improved and convert to oral therapy tomorrow if still doing well. Continue speech modifications such as chin tuck with swallows, no straws and strict aspiration precautions while eating as well as postprandial oral care. He request that his diet be changed from a minced and moist to a pured diet which was done. (3) Acute kidney injury: Elevated creatinine in setting of sepsis to 1.81, decreased to 1.32 after fluid resuscitation today. Patient is eating well. Fluids were turned off and will trend BMP in a.m. Baseline creatinine is around 1. (4) Hypoxia: This has resolved with treatment overnight. (5) Rheumatoid arthritis: Patient is immunosuppressed at baseline on Plaquenil and prednisone. He continues on this currently. (6) Bladder cancer: History of bladder cancer status post surgery status post ileal conduit. Yellow urine is in ileostomy this evening (7) DVT prophylaxis: Heparin DNR/DNI Disposition-pending PT/OT evaluations. DO Yeison Ramos Total Time Total Time Spent Total Time Spent (In Minutes): 60 Discharge Plan Discharge Items Patient Disposition: Home - Self-Care Reason For Visit: RESP FAILURE, TROP ELEV Discharge Diagnosis: Severe sepsis Aspiration pneumonia Immunocompromise state Rheumatoid arthritis Hypoxia-resolved Acute kidney injury-resolved Condition on Discharge: Good Activity: Resume your previous activity Non-emergency contact: Primary Care Provider Call non-emergency contact if: you have any medication questions, your symptoms worsen and you have a fever Follow-up/Referrals: Bret Nash MD [Primary Care Provider] - (Date & Time 05/08/2021 11:20 AM Provider Bret Nash MD Department General Internal Medicine [facility] ) Diet: Regular Diet Texture: Pureed (blended smooth) Addtl Attending Provider Instructions: Please take all medications as instructed on discharge list below. You are being given an additional 7 days of antibiotics to complete for treatment of aspiration pneumonia. A repeat chest x-ray is recommended in 4 to 6 weeks to ensure complete resolution of your pneumonia. This may be ordered by your primary care doctor. You are scheduled for a follow-up appointment within the next week with your primary care provider to ensure you are still doing well after returning home on discharge. This appointment is also important to ensure no issues on your antibiotic. It was a pleasure taking care of you! Please call if you have any questions or problems. You can reach a [facility] hospitalist on duty at [facility] 24 hours a day by calling [phone]. Take care of yourself. DO Yeison Ramos Pending Studies at Discharge: No Stand-Alone Forms: My [facility] Medications and DC Order Prescriptions: New clindamycin HCl 150 mg Capsule 300 mg PO Q8H 7 Days Qty: 42 RF: 0 Continued sennosides [senna] 8.6 mg Tablet 8.6 mg PO BID RF: 0 prednisone 5 mg tablet 5 mg PO BID RF: 0 magnesium oxide 500 mg Tablet 500 mg PO DAILY RF: 0 hydroxychloroquine 200 mg tablet 200 mg PO BID RF: 0 fluticasone propion-salmeterol 250-50 mcg/dose blister with device 1 inh INHALATION BID RF: 0 omeprazole 20 mg capsule,delayed release(DR/EC) 20 mg PO DAILY RF: 0 albuterol sulfate 90 mcg/actuation HFA aerosol inhaler 2 puff INHALATION BID RF: 0 Discharge Orders: Discharge Order (Routine); Ordered 05/02/21 Ordered By: Razia Campos Admission Data Admit Date/Time: 04/30/21 20:23 Attending Provider: Razia Campos Admit Provider: Misbah Chu Primary Care Provider: Bret Nash Other Providers: Misbah Chu
--- NOTE | 2021-05-03 08:14 | Communication Note ---
Date of Service: May 03, 2021 He was given incorrect dose of clindamycin 300mg q8h as for pulmonary source, 600mg PO q8h is the more appropriate dose. I contacted by phone and co nfirmed with her the new dose. I submitted the new clindamycin prescription electronically to [facility], her preferred pharmacy. She also asked me if she could break apart the capsules and put the medicine on applesauce. I confirmed with the inpatient pharmacist that would be okay and called her back with that answer. She then asked me if the persistent cough and congestion is normal, I replied yes because he has a pneumonia and offered Mucinex for which I also put a prescription into the pharmacy for. I explained to her the Mucinex is extended release and is a tablet however, the outpatient pharmacist would be able to clarify if this could be crushed. Andres,
== END 2021-05-02 16:20 | disposition home or self-care (01) | DRG 871 ==
LOC: ED 18:50 → EDINP 20:23

== ENCOUNTER 2021-05-08 14:50 | Inpatient (IN) ==
--- NOTE | 2021-05-08 15:10 | Emergency Department Note ---
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 EMS states the patient was cyanotic on arrival and was satting in the high 70s on room air. Patient states his breathing has not been good since going home from the hospital last week. Has been on clindamycin at home. No use of home oxygen reported. Patient denies current smoking. Patient denies current pain. Patient reports his breathing is better now on the CPAP initiated by EMS. Pat belnt reiterated to be DNI/DNR. Patient denies vomiting. REVIEW OF SYSTEMS: A total of 10 review of systems was obtained and negative except as stated above in the HPI. PAST MEDICAL HISTORY: As noted above MEDICATIONS: Reviewed home medications include current clindamycin SOCIAL HISTORY: Lives at home with PHYSICAL EXAM: GENERAL: alert and oriented on the stretcher with CPAP in place Head: normocephalic and atraumatic EYES: No injection, discharge or icterus. NECK: Trachea midline. Supple. ENT: Mucous membranes pink and moist. LUNGS: Airway patent. Minimal retractions and some tachypnea. Diffuse rhonchi predominantly right greater than left appreciated on auscultation. HEART: Regular tachycardic rate and rhythm. No chest wall tenderness ABDOMEN: Soft and non-tender, without guarding or rebound with prior healed surgical scars and a ostomy site in place with pink site and clear drainage. BACK: No midline tenderness, no SI joint tenderness. No bilateral flank tenderness. SKIN: Acyanotic, warm, dry, without rashes EXTREMITIES: Without swelling, tenderness or deformity NEUROLOGICAL: No focal deficits. No aphasia. No facial droop or slurred speech. EK bpm sinus tachycardia with frequent PVCs. Occasional couplet PVCs. No acute ST segment elevation noted with diffuse nonspecific T wave changes. QTC 475. Compared to previous available from April 30 of this year similar. CONTINUOUS CARDIAC MONITORING: was ordered and showed a heart rate of 90s to 100s bpm in sinus tachycardia at normal sinus rhythm with very frequent PVCs Patient's laboratory studies and imaging reviewed. Differential includes Reactive airway disease, pneumonia, pneumothorax, COPD, CHF, infections, cardiac ischemia, pulmonary embolism, musculoskeletal, gastrointestinal, as well as other pathologies. IMPRESSION/MEDICAL DECISION MAKING: Patient readmission for aspiration pneumonia. Currently on antibiotics. Hypoxic at home and in respiratory distress initially placed her on BiPAP from CPAP for EMS. No trauma reported and the patient denies pain. Oxygenating better on BiPAP and appears more comfortable per EMS report. Blood work was obtained. Covid and flu testing sent. Patient is immunosuppressed with hydroxychloroquine. Patient does have a significant history of aspiration which may be playing a part in today's episode. Patient confirms DNI DNR. EKG shows frequent PVCs and ectopy. Blood work today without significant leukocytosis and minimal anemia. No hypercarbia or significant acidosis. No severe renal dysfunction or electrolyte abnormality noted. Negative influenza, RSV, and Covid testing. Troponin minimally detectable but downtrending from previous. Low suspicion this represents acute ACS. Patient with significant rhonchi on exam but does not appear severely fluid overloaded clinically. Again question if this is more of an aspiration mucous plugging event. Minimal lactate elevation noted but I doubt this represents septic shock. Blood pressures have been somewhat high if anything. Patient is more comfortable on BiPAP now. Updated him at bedside. Covered with cefepime and Flagyl with a MRSA swab pending for additional antimi crobial coverage of any aspiration given allergy profile. Hospitalist contacted. DIAGNOSIS: Hypoxic respiratory failure, aspiration pneumonia, shortness of breath, elevated troponin DISPOSITION: Hospitalist will evaluate Patient was agreeable with this plan. Critical Care I have personally spent 33 minutes of critical care time in the direct management of this patient. This includes bedside care, interpretation of diagnostic studies, and testing, discussion with consultants, patient, and family members, and other required patient management activities. These 33 minutes is in excess of all separately billable procedures. Past Med/Surg History Medical History (Updated 05/08/21 @ 16:30 by Barrington Aparicio M.D.) Aspiration pneumonia Social History Smoking Status: Never smoker Second Hand Exposure: No; Hx Alcohol Use: Yes Alcohol type: beer Hx Substance Use: No Preferred Language: Urdu Communication Ability: Effective Repair [employer]il Winder Required: No Beliefs That Will Affect Care: None marital status: Current Living Situation: Spouse How many Children do You have: 1 Feels Safe at Home: Yes Assistive Devices: Denture - Upper, Glasses, Hearing Aid - Bilateral and Walker Allergies Allergies Allergy/AdvReac Type Severity Reaction Status Date / Time piperacillin Allergy Severe SHORTNESS Verified 05/08/21 15:46 OF BREATH tazobactam Allergy Severe SHORTNESS Verified 05/08/21 15:46 OF BREATH Sulfa (Sulfonamide Allergy Unknown SWELLING Verified 05/08/21 15:46 Antibiotics) propoxyphene AdvReac Unknown BLOOD Verified 05/08/21 15:46 PRESSURE DROPS Home Meds Home Medications Medication Instructions Recorded Confirmed hydroxychloroquine 200 mg tablet 200 mg PO BID 11/29/18 05/08/21 magnesium oxide 500 mg tablet 500 mg PO DAILY 11/29/18 05/08/21 prednisone 5 mg tablet 5 mg PO BID 11/29/18 05/08/21 sennosides 8.6 mg tablet (senna) 8.6 mg PO BID 11/29/18 05/08/21 albuterol sulfate 90 mcg/actuation 2 puff INHALATION BID 04/30/21 05/08/21 aerosol inhaler fluticasone 250 mcg-salmeterol 50 1 inh INHALATION BID 04/30/21 05/08/21 mcg/dose blistr powdr for inhalation omeprazole 20 mg capsule,delayed 20 mg PO DAILY 04/30/21 05/08/21 release Previous Rx's Medication Instructions Recorded clindamycin HCl 300 mg capsule 600 mg PO Q8H #42 cap 05/03/21 guaifenesin 600 mg tablet, 600 mg PO Q12H PRN #30 tab 05/03/21 extended release 12 hr (Mucinex) Results & Data (ED) Vital Signs Vital Signs - 24 hr 05/08/21 15:01 05/08/21 15:02 Pulse Rate 103 H 101 H Pulse Rhythm Regular Pulse Strength Normal Respiratory Rate 44 H 24 Respiratory Effort / Characteristics Labored Short of Breath Respiratory Depth Normal Respiratory Pattern Tachypnea Tachypnea Blood Pressure 160/104 H Blood Pressure Mean 122 Blood Pressure Position Sitting Pulse Oximetry 97 95 Oxygen Delivery Method BiPAP Fraction of Inspired Oxygen 40 Sepsis Recent Fever Within 48 Hours Yes Sepsis New/Unexplained Change in Mental Status No Sepsis Action Taken by Nursing Physician Notified Laboratory Data Result diagrams: 05/08/21 15:34 05/08/21 15:34 Lab Results 05/08/21 05/08/21 05/08/21 Range/Units 15:29 15:34 15:34 WBC (4.8-10.8) K/uL RBC (4.7-6.1) M/uL Hgb (14.0-18.0) g/dL Hct (42-52) % MCV (80-100) fL MCH (25-34) pg MCHC (32-36) g/dL RDW Std Deviation (36.4-46.3) fL RDW Coeff of Angela (11.5-14.5) % Plt Count (130-400) K/uL MPV (7.4-10.4) fL Immature Gran % (Auto) % Neut % (Auto) % Lymph % (Auto) % [place] % (Auto) % Eos % (Auto) % Baso % (Auto) % Neut # (Auto) (1.4-6.5) K/uL Lymph # (Auto) (1.2-3.4) K/uL [place] # (Auto) (0.11-0.59) K/uL Eos # (Auto) (0-0.5) K/uL Baso # (Auto) (0-0.2) K/uL Immature Gran # (Auto) (0.00-0.02) K/uL Toxic Granulation Echinocytes PT (9.0-12.0) Seconds INR (0.9-1.1) VBG pH (7.36-7.41) VBG pCO2 (38-50) mmHg VBG pO2 mmHg VBG HCO3 mmol/L VBG O2 Saturation % VBG Base Excess mEq/L Barometric Pressure mm/Hg Sodium (136-145) mmol/L Potassium (3.5-5.1) mmol/L Chloride (98-107) mmol/L Carbon Dioxide (21-32) mmol/L Anion Gap (3-11) BUN (7-18) mg/dl Creatinine (0.6-1.4) mg/dl Est Cr Clr Drug Dosing ml/min Est GFR ( Amer) ml/min Est GFR (Non-Af Amer) ml/min BUN/Creatinine Ratio (10-20) Glucose (70-99) mg/dl Lactate 2.2 H* (0.4-2.0) mmol/L Calcium (8.5-10.1) mg/dl Total Bilirubin (0.2-1) mg/dl AST (15-37) U/L ALT (12-78) Alkaline Phosphatase (45-117) U/L Troponin I (0-0.045) ng/ml Total Protein (6.4-8.2) gm/dl Albumin (3.4-5.0) gm/dl Globulin (2.5-4.0) gm/dl Albumin/Globulin Ratio (0.9-2) Procalcitonin 0.81 H (0-0.5) ng/ml SARS-CoV-2 (PCR) NEGATIVE (Negative) Influenza Type A (PCR) Negative (Neg) Influenza Type B (PCR) Negative (Neg) RSV (RT-PCR) Negative (Neg) 05/08/21 05/08/21 05/08/21 Range/Units 15:34 15:34 15:34 WBC 6.91 (4.8-10.8) K/uL RBC 4.25 L (4.7-6.1) M/uL Hgb 12.3 L (14.0-18.0) g/dL Hct 38.7 L (42-52) % MCV 91.1 (80-100) fL MCH 28.9 (25-34) pg MCHC 31.8 L (32-36) g/dL RDW Std Deviation 49.4 H (36.4-46.3) fL RDW Coeff of Angela 14.9 H (11.5-14.5) % Plt Count 277 (130-400) K/uL MPV 9.2 (7.4-10.4) fL Immature Gran % (Auto) 0.4 % Neut % (Auto) 93.8 % Lymph % (Auto) 2.7 % [place] % (Auto) 2.9 % Eos % (Auto) 0.1 % Baso % (Auto) 0.1 % Neut # (Auto) 6.47 (1.4-6.5) K/uL Lymph # (Auto) 0.19 L (1.2-3.4) K/uL [place] # (Auto) 0.20 (0.11-0.59) K/uL Eos # (Auto) 0.01 (0-0.5) K/uL Baso # (Auto) 0.01 (0-0.2) K/uL Immature Gran # (Auto) 0.03 H (0.00-0.02) K/uL Toxic Granulation 1+ Echinocytes 1+ PT 11.1 (9.0-12.0) Seconds INR 1.1 (0.9-1.1) VBG pH (7.36-7.41) VBG pCO2 (38-50) mmHg VBG pO2 mmHg VBG HCO3 mmol/L VBG O2 Saturation % VBG Base Excess mEq/L Barometric Pressure mm/Hg Sodium 134 L (136-145) mmol/L Potassium 4.8 (3.5-5.1) mmol/L Chloride 104 (98-107) mmol/L Carbon Dioxide 23 (21-32) mmol/L Anion Gap 7.0 (3-11) BUN 33 H (7-18) mg/dl Creatinine 0.99 (0.6-1.4) mg/dl Est Cr Clr Drug Dosing 52.5 ml/min Est GFR ( Amer) 78.5 ml/min Est GFR (Non-Af Amer) 67.7 ml/min BUN/Creatinine Ratio 33.0 H (10-20) Glucose 106 H (70-99) mg/dl Lactate (0.4-2.0) mmol/L Calcium 8.8 (8.5-10.1) mg/dl Total Bilirubin 0.6 (0.2-1) mg/dl AST 51 H (15-37) U/L ALT 40 (12-78) Alkaline Phosphatase 87 (45-117) U/L Troponin I 0.065 H* (0-0.045) ng/ml Total Protein 6.7 (6.4-8.2) gm/dl Albumin 1.9 L (3.4-5.0) gm/dl Globulin 4.8 H (2.5-4.0) gm/dl Albumin/Globulin Ratio 0.4 L (0.9-2) Procalcitonin (0-0.5) ng/ml SARS-CoV-2 (PCR) (Negative) Influenza Type A (PCR) (Neg) Influenza Type B (PCR) (Neg) RSV (RT-PCR) (Neg) 05/08/21 Range/Units 15:34 WBC (4.8-10.8) K/uL RBC (4.7-6.1) M/uL Hgb (14.0-18.0) g/dL Hct (42-52) % MCV (80-100) fL MCH (25-34) pg MCHC (32-36) g/dL RDW Std Deviation (36.4-46.3) fL RDW Coeff of Angela (11.5-14.5) % Plt Count (130-400) K/uL MPV (7.4-10.4) fL Immature Gran % (Auto) % Neut % (Auto) % Lymph % (Auto) % [place] % (Auto) % Eos % (Auto) % Baso % (Auto) % Neut # (Auto) (1.4-6.5) K/uL Lymph # (Auto) (1.2-3.4) K/uL [place] # (Auto) (0.11-0.59) K/uL Eos # (Auto) (0-0.5) K/uL Baso # (Auto) (0-0.2) K/uL Immature Gran # (Auto) (0.00-0.02) K/uL Toxic Granulation Echinocytes PT (9.0-12.0) Seconds INR (0.9-1.1) VBG pH 7.38 (7.36-7.41) VBG pCO2 44 (38-50) mmHg VBG pO2 33 mmHg VBG HCO3 26 mmol/L VBG O2 Saturation < 60.0 % VBG Base Excess 0.3 mEq/L Barometric Pressure 733.1 mm/Hg Sodium (136-145) mmol/L Potassium (3.5-5.1) mmol/L Chloride (98-107) mmol/L Carbon Dioxide (21-32) mmol/L Anion Gap (3-11) BUN (7-18) mg/dl Creatinine (0.6-1.4) mg/dl Est Cr Clr Drug Dosing ml/min Est GFR ( Amer) ml/min Est GFR (Non-Af Amer) ml/min BUN/Creatinine Ratio (10-20) Glucose (70-99) mg/dl Lactate (0.4-2.0) mmol/L Calcium (8.5-10.1) mg/dl Total Bilirubin (0.2-1) mg/dl AST (15-37) U/L ALT (12-78) Alkaline Phosphatase (45-117) U/L Troponin I (0-0.045) ng/ml Total Protein (6.4-8.2) gm/dl Albumin (3.4-5.0) gm/dl Globulin (2.5-4.0) gm/dl Albumin/Globulin Ratio (0.9-2) Procalcitonin (0-0.5) ng/ml SARS-CoV-2 (PCR) (Negative) Influenza Type A (PCR) (Neg) Influenza Type B (PCR) (Neg) RSV (RT-PCR) (Neg) Administered Medications Discontinued Medications Cefepime HCl (Maxipime) 2,000 mg in 20 mls @ 5 mls/min IV NOW STA; Protocol Stop: 05/08/21 15:58 Last Admin: 05/08/21 16:24 Dose: 5 mls/min Documented by: [id number] Metronidazole (Metronidazole 500 Mg Tab) 500 mg PO NOW STA Stop: 05/08/21 15:56 Last Admin: 05/08/21 16:24 Dose: 500 mg Documented by: [id number] Imaging Data Radiologist's Impression: Chest X-Ray 05/08/21 15:01 XR chest 1V portable CLINICAL HISTORY: Dyspnea TECHNIQUE: Single frontal radiograph of the chest was obtained. Comparison: Comparison is made to chest one view 04/30/2021 FINDINGS: No lines and tubes are seen. The cardiomediastinal silhouette is normal. There is prominence and cephalization of the vasculature with Nevin B lines seen. Airspace opacities seen in the right upper lobe. No evidence of pleural effusion or pneumothorax. IMPRESSION: Moderate pulmonary edema. Right upper lobe airspace opacities which may represent atelectasis, pneumonia, and/or aspiration. ACT 112: Negative or not required by law. Electronically signed by: Dannie Horne M.D. 05/08/2021 3:50 PM Discharge Plan Visit Data Chief Complaint: Shortness of Breath/Dyspnea Stated Complaint: SOB ED Provider: Barrington Aparicio Discharge Problem: Respiratory failure, Hypoxia, SOB (shortness of breath), Aspiration pneumonia Patient Disposition: Being Evaluated by Hospitalist Forms Stand Alone Forms: [facility] Prescriptions Prescriptions: No Action sennosides [senna] 8.6 mg Tablet 8.6 mg PO BID RF: 0 prednisone 5 mg tablet 5 mg PO BID RF: 0 magnesium oxide 500 mg Tablet 500 mg PO DAILY RF: 0 hydroxychloroquine 200 mg tablet 200 mg PO BID RF: 0 fluticasone propion-salmeterol 250-50 mcg/dose blister with device 1 inh INHALATION BID RF: 0 omeprazole 20 mg capsule,delayed release(DR/EC) 20 mg PO DAILY RF: 0 albuterol sulfate 90 mcg/actuation HFA aerosol inhaler 2 puff INHALATION BID RF: 0 clindamycin HCl 300 mg capsule 600 mg PO Q8H Qty: 42 RF: 0 guaifenesin [Mucinex] 600 mg tablet extended release 12hr 600 mg PO Q12H PRN (Reason: congestion) Qty: 30 RF: 0 Referrals Referrals: Bret Nash MD [Primary Care Provider] - Discharge Problem: Respiratory failure Qualifiers: Chronicity: acute on chronic Respiratory failure complication: hypoxia Qualified Code(s): J96.21 - Acute and chronic respiratory failure with hypoxia Aspiration pneumonia Qualifiers: Aspiration pneumonia type: unspecified Laterality: unspecified laterality Lung location: unspecified part of lung Qualified Code(s): J69.0 - Pneumonitis due to inhalation of food and vomit
[2021-05-08 15:44] LABS: Hematocrit (blood only) 38.7 % (42-52); Hemoglobin 12.3 g/dL (14.0-18.0); Mean Corpuscular Hemoglobin 28.9 pg (25-34); Mean Corpuscular Hgb Conc 31.8 g/dL (32-36); Mean Corpuscular Volume 91.1 fL (80-100); Mean Platelet Volume 9.2 fL (7.4-10.4); Platelet Count 277 K/uL (130-400); RDW Coefficient of Variation 14.9 % (11.5-14.5); RDW Standard Deviation 49.4 fL (36.4-46.3); Red Blood Count 4.25 M/uL (4.7-6.1); White Blood Count 6.91 K/uL (4.8-10.8)
[2021-05-08 15:49] LABS: Base Excess VBG 0.3 mEq/L; HCO3 VBG 26 mmol/L; PCO2 VBG 44 mmHg (38-50); PO2 VBG 33 mmHg; pH VBG 7.38 (7.36-7.41)
[2021-05-08 15:51] LABS: Oxygen Saturation VBG < 60.0 %
--- NOTE | 2021-05-08 15:51 | XRay Report ---
XR chest 1V portable CLINICAL HISTORY: Dyspnea TECHNIQUE: Single frontal radiograph of the chest was obtained. Comparison: Comparison is made to chest one view 04/30/2021 FINDINGS: No lines and tubes are seen. The cardiomediastinal silhouette is normal. There is prominence and ceph alization of the vasculature with Nevin B lines seen. Airspace opacities seen in the right upper lob e. No evidence of pleural effusion or pneumothorax. IMPRESSION: Moderate pulmonary edema. Right upper lobe airspace opacities which may represent atelectasis, pneumo arabella, and/or aspiration. ACT 112: Negative or not required by law. Electronically signed by: Dannie Horne M.D. 05/08/2021 3:50 PM
[2021-05-08 15:53] LABS: INR 1.1 (0.9-1.1); Prothrombin Time 11.1 Seconds (9.0-12.0)
[2021-05-08] MEDS ORDERED: CEFEPIME 2,000 MG/20 ML VIAL IV STA (15:55)
[2021-05-08 16:05] LABS: Albumin Level 1.9 gm/dl (3.4-5.0); Calcium 8.8 mg/dl (8.5-10.1); Creatinine Clr Calc Pharmacy 52.5 ml/min; Est GFR (African American) 78.5 ml/min; Est GFR (Non-African American) 67.7 ml/min; Potassium 4.8 mmol/L (3.5-5.1)
[2021-05-08 16:08] LABS: Basophils # (auto) 0.01 K/uL (0-0.2); Basophils % (auto) 0.1 %; Echinocytes 1+; Eosinophils # (auto) 0.01 K/uL (0-0.5); Eosinophils % (auto) 0.1 %; Immature Granulocytes # (auto) 0.03 K/uL (0.00-0.02); Immature Granulocytes % (auto) 0.4 %; Lymphocytes # (auto) 0.19 K/uL (1.2-3.4); Lymphocytes % (auto) 2.7 %; Monocytes % (auto) 2.9 %; Neutrophils # (auto) 6.47 K/uL (1.4-6.5); Neutrophils % (auto) 93.8 %; Toxic Granulation 1+
[2021-05-08 16:19] LABS: Influenza A virus by PCR Negative (Neg); Influenza B virus by PCR Negative (Neg); RSV by PCR Negative (Neg); SARS CoV2 RNA(COVID-19) InHosp NEGATIVE (Negative)
[2021-05-08 16:21] LABS: Albumin Globulin Ratio 0.4 (0.9-2); Bilirubin,Total 0.6 mg/dl (0.2-1); Globulin 4.8 gm/dl (2.5-4.0); Total Protein 6.7 gm/dl (6.4-8.2); Troponin I 0.065 ng/ml (0-0.045)
[2021-05-08] MEDS: metroNIDAZOLE 500 MG TAB PO STA ×2 (16:24→18:02)
[2021-05-08] MEDS ORDERED: metroNIDAZOLE 500 MG/100 ML BAG IV STA (17:33)
--- NOTE | 2021-05-08 17:39 | History & Physical Report ---
Date of Service May 08, 2021 Assessment & Plan (1) Acute respiratory failure with hypoxia: (2) Aspiration pneumonia: (3) Chronic pulmonary aspiration: (4) Sepsis: Plan: This is a 89-year-old male who has a significant past medical history of chronic pulmonary aspiration, CAD, HTN, rheumatoid arthritis, history of bladder cancer with ileal conduit who presents to ED secondary to hypoxia and ill feeling. Of significance patient was hospitalized on 04/30-05/02 secondary to severe sepsis, aspiration pneumonia, RADHA and hypoxia. He was d/c to home on oral antibiotics clindamycin. He has been taking appropriately. Found at home today by [facility] at home, hypoxic @ 79%. Patient meets sepsis criteria per current CMS guidelines secondary to tachycardia, tachypnea and chest x-ray with evidence of pneumonia. Elevated procalcitonin 0.81 and lactic acid 2.2. Elevated lactic acid likely in setting of hypoxia. 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 and chronically high risk for aspiration Lactic acidosis Pulmonary edema Admit to telemetry Give IV Lasix 40 mg x 1 now Continue IV cefepime, discussed with pharmacist to allow for administration of IV Flagyl while on BiPAP (pharmacist agreed for 24 to 36 hours), de-escalate oral Flagyl when able Sputum culture MRSA swab -if positive will add Vanco Aggressive pulmonary toilet with nebs, chest percussion therapy, flutter valve, incentive spirometry Mucinex when able to tolerate oral Holding IV fluid for now in setting of pulmonary edema Aspiration cautions Patient has been evaluated by ST in the past and had prior VFSS studies which revealed silent aspiration and thin, thickened and putting, therefore patient will chronically aspirate and he is aware of this Elevated troponin Patient denies chest pain Troponin is actually downtrending from previous admission Continue to cycle, repeat ECG in a.m. last echo 2018 50-54%, borderline diffuse left ventricular hypokinesis, concentric LV wall thickness, moderate aortic valve sclerosis, trace aortic insufficiency obtain echo to eval cardiac fxn Rheumatoid arthritis Continue hydroxychloroquine and prednisone History of bladder cancer status post ileal conduit DVT prophylaxis: Subcu Lovenox Dispo: PCU PCP: [facility] DNR/DNI confirmed with Patient was seen and examined in collaboration with Dr. Limon, please see addendum The chart was completed utilizing [employer] Speech voice recognition software. Grammatical errors, random word insertions, pronoun errors, and incomplete sentences are an occasional consequence of this system due to software limitations, ambient noise, and hardware issues. Any formal questions or concerns about the content, text, or information contained within the body of this dictation should be directly addressed to the provider for clarification.. History of Present Illness Chief Complaint: Hypoxia prior to arrival. Primary Care Provider: Bret Nash MD This is a 89-year-old male who has a significant past medical history of chr onic pulmonary aspiration, CAD, HTN, rheumatoid arthritis, history of bladder cancer with ileal conduit who presents to ED secondary to hypoxia and ill feeling. Of significance patient was hospitalized on 04/30-05/02 secondary to severe sepsis, aspiration pneumonia, RADHA and hypoxia. He was treated with IV antibiotics and wean off oxygen. He was discharged home with a 7-day course of oral clindamycin. He has been taking antibiotics as prescribed and applesauce. 1 days ago at home when out to evaluate the patient today was having significant difficulty caring for patient, was found to be cyanotic and hypoxic at approximately 79%. EMS was summoned and he was brought to ED where he is currently requiring BiPAP therapy. Of significance patient has been followed by speech therapy in the past since VFSS completed in 2011. He did have an open J- tube after that study. 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 Unfortunately he has been found to aspirate slightly on thin, nectar thick liquid as well as putting. Patient has expressed in the past as long as he is able to swallow he wishes to continue to eat by mouth and refused PEG tube in the past. He states he continues to have productive cough of thick green sputum. He denies any fever, but complains of chills. He denies lightheadedness, dizziness, chest pain, current shortness of breath, nausea, vomiting, abdominal pain. Overall he states his appetite has been very poor. Since being discharged home he has been ambulating very little and spending most of the time in recliner. In ED he continues to remain on BiPAP. He tested negative for SARS-CoV-2 as well as influenza and RSV. Chest x-ray reveals moderate pulmonary edema, right upper lobe airspace opacities which may represent atelectasis, pneumonia and/or aspiration. Lab work significant for elevated procalcitonin 0.81, troponin 0.065, lactate 2.2, VBG WNL and white count WNL. He received IV cefepime. He was also prescribed oral Flagyl; however, nurse hesitant to give antibiotic due to aspiration. Allergies Allergy/AdvReac Type Severity Reaction Status Date / Time piperacillin Allergy Severe SHORTNESS Verified 05/08/21 15:46 OF BREATH tazobactam Allergy Severe SHORTNESS Verified 05/08/21 15:46 OF BREATH Sulfa (Sulfonamide Allergy Unknown SWELLING Verified 05/08/21 15:46 Antibiotics) propoxyphene AdvReac Unknown BLOOD Verified 05/08/21 15:46 PRESSURE DROPS Home Medications Medication Instructions Recorded Confirmed Type hydroxychloroquine 200 mg tablet 200 mg PO BID 11/29/18 05/08/21 History magnesium oxide 500 mg tablet 500 mg PO DAILY 11/29/18 05/08/21 History prednisone 5 mg tablet 5 mg PO BID 11/29/18 05/08/21 History sennosides 8.6 mg tablet (senna) 8.6 mg PO BID 11/29/18 05/08/21 History albuterol sulfate 90 mcg/actuation 2 puff INHALATION BID 04/30/21 05/08/21 History aerosol inhaler fluticasone 250 mcg-salmeterol 50 1 inh INHALATION BID 04/30/21 05/08/21 History mcg/dose blistr powdr for inhalation omeprazole 20 mg capsule,delayed 20 mg PO DAILY 04/30/21 05/08/21 History release clindamycin HCl 300 mg capsule 600 mg PO Q8H #42 cap 05/03/21 05/08/21 Rx guaifenesin 600 mg tablet, 600 mg PO Q12H PRN #30 tab 05/03/21 05/08/21 Rx extended release 12 hr (Mucinex) Past Med/Surg History Medical History (Updated 05/08/21 @ 17:49 by Kimberil Aguilera PA-C) Aspiration pneumonia Benign hypertension Benign prostatic hyperplasia Bladder cancer CAD (coronary artery disease) Chronic ischemic heart disease Chronic pulmonary aspiration Gastroesophageal reflux disease History of gastrectomy Hyperlipidemia Rheumatoid arthritis Surgical History (Updated 05/08/21 @ 17:45 by Kimberli Aguilera PA-C) S/P colonoscopy with polypectomy S/P hernia repair S/P ileal conduit S/P tonsillectomy Family History Mother Diabetes Son Leukemia Social History Smoking Status: Former smoker Second Hand Exposure: No; Hx Alcohol Use: Yes Alcohol type: beer Hx Substance Use: No Preferred Language: Hungarian Communication Ability: Effective Product Development Director Required: No Beliefs That Will Affect Care: None marital status: Current Living Situation: Spouse How many Children do You have: 1 Feels Safe at Home: Yes Assistive Devices: Denture - Upper, Glasses, Hearing Aid - Bilateral and Walker Review of Systems Review of Systems: All systems reviewed & are unremarkable except as noted in HPI & below Physical Exam Physical Exam: Constitutional: Frail, cachectic, elderly, male, BiPAP in ascencion ce, vitals as above, NAD, answers questions appropriately Head: Normocephalic, Atraumatic, bilateral temporal wasting Eyes: PERRL, conjunctivae normal, anicteric sclerae ENMT: external ear and nose normal, oropharynx normal, dry mucous membranes Neck: trachea midline, no thyromegaly normal visual inspection Respiratory: Increased respiratory effort, bilateral rhonchi throughout, decreased breath sounds at bases, no wheezes or rails, on BiPAP. Normal insp/exp effort, no accessory muscle use Cardiovascular: RRR, no murmur, no edema Vessels: no JVD or carotid bruit Chest: normal inspection of chest Abdomen: normal bowel sounds, soft, nontender, no hepatosplenomegaly Musculoskeletal: no cyanosis or clubbing, active range of motion x4 Skin: no rashes, warm and dry normal turgor Neurologic: PERRL, EOMI, accommodation nl, no face palsy, no dysarthria CN's II-XI intact bilaterally and moves all extremities Psychiatric: A+Ox3, euthymic affect Lymphatic: no cervical or axillary lymphadenopathy : deferred Results & Data Results & Data ([facility]) Vital Signs (Past 12 Hours) Vital Signs Temp Pulse Pulse Resp BP BP Pulse Ox 05/08/21 16:49 96 05/08/21 16:48 37.5 C 108 H 30 H 130/70 95 05/08/21 15:02 101 H 24 95 05/08/21 15:01 103 H 44 H 160/104 H 97 Diagnostic Findings Chest X-Ray 05/08/21 15:01 XR chest 1V portable CLINICAL HISTORY: Dyspnea TECHNIQUE: Single frontal radiograph of the chest was obtained. Comparison: Comparison is made to chest one view 04/30/2021 FINDINGS: No lines and tubes are seen. The cardiomediastinal silhouette is normal. There is prominence and cephalization of the vasculature with Nevin B lines seen. Airspace opacities seen in the right upper lobe. No evidence of pleural effusion or pneumothorax. IMPRESSION: Moderate pulmonary edema. Right upper lobe airspace opacities which may represent atelectasis, pneumonia, and/or aspiration. ACT 112: Negative or not required by law. Electronically signed by: Dannie Horne M.D. 05/08/2021 3:50 PM Medications Administered Medication List Discontinued Medications Cefepime HCl (Maxipime) 2,000 mg in 20 mls @ 5 mls/min IV NOW STA; Protocol Stop: 05/08/21 15:58 Last Admin: 05/08/21 16:24 Dose: 5 mls/min Documented by: [id number] ECG Rate (beats per minute): 107 Rhythm: sinus tachycardia Findings: + PVC Additional Comments: [facility] COVID-19 Results Results COVID-19 Adm Lab Results: RBC 4.25 M/uL (4.7-6.1) L 05/08/21 WBC 6.91 K/uL (4.8-10.8) 05/08/21 Hgb 12.3 g/dL (14.0-18.0) L 05/08/21 Hct 38.7 % (42-52) L 05/08/21 Plt Count 277 K/uL (130-400) 05/08/21 Neutrophils (%) (Auto) 93.8 % 05/08/21 Lymphocytes (%) (Auto) 2.7 % 05/08/21 Monocytes # (Auto) 0.20 K/uL (0.11-0.59) 05/08/21 Eosinophils # (Auto) 0.01 K/uL (0-0.5) 05/08/21 Immature Granulocyte % (Auto) 0.4 % 05/08/21 Neutrophils # (Auto) 6.47 K/uL (1.4-6.5) 05/08/21 Lymphocytes # (Auto) 0.19 K/uL (1.2-3.4) L 05/08/21 Monocytes # (Auto) 0.20 K/uL (0.11-0.59) 05/08/21 Eosinophils # (Auto) 0.01 K/uL (0-0.5) 05/08/21 Basophils # (Auto) 0.01 K/uL (0-0.2) 05/08/21 Immature Granulocyte # (Auto) 0.03 K/uL (0.00-0.02) H 05/08/21 Echinocytes 1+ 05/08/21 Toxic Granulation 1+ 05/08/21 Na 134 mmol/L (136-145) L 05/08/21 K 4.8 mmol/L (3.5-5.1) 05/08/21 Cl 104 mmol/L (98-107) 05/08/21 CO2 23 mmol/L (21-32) 05/08/21 Anion Gap 7.0 (3-11) 05/08/21 BUN 33 mg/dl (7-18) H 05/08/21 Creatinine 0.99 mg/dl (0.6-1.4) 05/08/21 BUN/Creatinine Ratio 33.0 (10-20) H 05/08/21 Glucose Level 106 mg/dl (70-99) H 05/08/21 Ca 8.8 mg/dl (8.5-10.1) 05/08/21 Total Bilirubin 0.6 mg/dl (0.2-1) 05/08/21 AST/SGOT 51 U/L (15-37) H 05/08/21 ALT/SGPT 40 (12-78) 05/08/21 Alkaline Phosphatase 87 U/L (45-117) 05/08/21 Total Protein 6.7 gm/dl (6.4-8.2) 05/08/21 Albumin 1.9 gm/dl (3.4-5.0) L 05/08/21 Globulin 4.8 gm/dl (2.5-4.0) H 05/08/21 Albumin/Globulin Ratio 0.4 (0.9-2) L 05/08/21 Troponin I 0.065 ng/ml (0-0.045) H* 05/08/21 BM-Urg-K-Type Natriuretic Pep 6415 pg/ml (0-1800) H 05/08/21 Procalcitonin 0.81 ng/ml (0-0.5) H 05/08/21 INR 1.1 (0.9-1.1) 05/08/21 COVID-19 PCR NEGATIVE (Negative) 05/08/21 Influenza Virus Type A (PCR) Negative (Neg) 05/08/21 Influenza Virus Type B (PCR) Negative (Neg) 05/08/21 Micro Respiratory Specimen 05/08/21 Chest X-Ray 05/08/21 Code Status & VTE Plan Code Status DNR/DNI - ER provider confirmed with VTE Prophylaxis Plan VTE Prophylaxis will be ordered: Yes Supervising Physician Co-Signing Physician Notes Attending addendum: The patient was seen and examined in emergency room He has epiglottic dysfunction with chronic aspiration and refusing any PEG tube placement for a while. He was discharged from the hospital with an episode of aspiration on third of this month and coming back with another episode of aspiration with hypoxia and requiring BiPAP He has been feeling a little better since admission On examination Moderate shortness of breath with BiPAP Blood pressure has been on the upper side of normal at 150/81 with tachycardia Chestwidespread crackles HeartS1, S2 no murmur Abdomenbenign Extremitiesnegative for any edema His admission labs, EKG and imaging studies reviewed Has recurrent aspiration with possible pulmonary congestion resulting in acute respiratory failure with hypoxia Has been getting intravenous clindamycin Refusing PEG tube placement with history of recurrent aspiration due to epiglottic dysfunction Agree with assessment and plan as outlined above by JARON Lehman Dr
[2021-05-08] MEDS ORDERED: CONSULT PHARMACY STA (17:42)
[2021-05-08] MEDS ORDERED: FUROSEMIDE 40 MG/4 ML VIAL IV STA (17:51)
[2021-05-08 18:22] LABS: Appearance Urine Cloudy (Clear); Bacteria Urine Automated Negative (Negative); Bilirubin Urine Negative (Negative); Blood Urine Negative (Negative); Color Urine Dark Yellow; Epithelial Cell Urine Auto >30 /lpf (0-5); Glucose Urine UA Negative (Negative); Ketones Urine Negative (Negative); Leukocyte Esterase Urine Negative (Negative); Nitrite Urine Negative (Negative); Protein Urine 2+ (Negative); RBC Urine Automated 0-4 /hpf (0-4); Specific Gravity Urine 1.021 (1.000-1.030); Urobilinogen Urine Negative (Negative)
[2021-05-08 19:53] LABS: Magnesium 2.1 mg/dl (1.8-2.4)
[2021-05-08] MEDS ORDERED: POLYETHYLENE (MIRALAX) 17 GM PACK PO PRN (23:28)
[2021-05-08] MEDS ORDERED: ALUMINUM/MAGNESIUM SUSP 30 ML UDC PO PRN (23:28)
[2021-05-08] MEDS ORDERED: MAGNESIUM HYDROXIDE SUSP 30 ML UDC PO PRN (23:28)
[2021-05-08] MEDS ORDERED: ONDANSETRON INJ 2 MG/ML 2 ML VIAL IV PRN (23:28)
[2021-05-08] MEDS ORDERED: ACETAMINOPHEN 325 MG TAB PO PRN (23:28)
[2021-05-09] MEDS: ENOXAPARIN INJ 40 MG/0.4 ML SYR SQ SCH ×2 (00:38→22:08)
[2021-05-09] MEDS: predniSONE 5 MG TAB PO SCH ×3 (00:40→20:51)
[2021-05-09] MEDS: SENNA 8.6 MG TAB PO SCH ×3 (00:44→20:52)
[2021-05-09] MEDS: HYDROXYCHLOROQUINE SULFATE 200 MG TAB PO SCH ×3 (00:44→20:51)
[2021-05-09] MEDS: guaiFENesin 600 MG TABCR PO SCH ×3 (00:46→20:59)
[2021-05-09] MEDS: ALBUT/IPRATROP 3MG/0.5MG NEB 3 ML VIAL NEB SCH ×5 (01:14→19:41)
[2021-05-09] MEDS: metroNIDAZOLE 500 MG/100 ML BAG IV SCH ×3 (02:02→17:11)
[2021-05-09] MEDS: CEFEPIME 2,000 MG in SYRINGE 0 ML IV SCH ×2 (03:11→17:01)
[2021-05-09 03:56] LABS: Hematocrit (blood only) 37.1 % (42-52); Mean Corpuscular Hemoglobin 29.6 pg (25-34); Mean Corpuscular Hgb Conc 32.3 g/dL (32-36); Mean Corpuscular Volume 91.6 fL (80-100); Mean Platelet Volume 9.2 fL (7.4-10.4); Platelet Count 290 K/uL (130-400); RDW Coefficient of Variation 14.8 % (11.5-14.5); RDW Standard Deviation 50.5 fL (36.4-46.3); Red Blood Count 4.05 M/uL (4.7-6.1); White Blood Count 4.51 K/uL (4.8-10.8)
[2021-05-09 04:15] LABS: Magnesium 1.7 mg/dl (1.8-2.4)
[2021-05-09 04:17] LABS: Albumin Level 1.8 gm/dl (3.4-5.0); BUN Creatinine Ratio 27.6 (10-20); Calcium 8.8 mg/dl (8.5-10.1); Creatinine Clr Calc Pharmacy 37.4 ml/min; Est GFR (African American) 56.5 ml/min; Est GFR (Non-African American) 48.7 ml/min; Potassium 4.6 mmol/L (3.5-5.1)
[2021-05-09 04:26] LABS: Albumin Globulin Ratio 0.4 (0.9-2); Bilirubin,Total 0.8 mg/dl (0.2-1); Globulin 4.6 gm/dl (2.5-4.0); Total Protein 6.4 gm/dl (6.4-8.2); Troponin I 0.123 ng/ml (0-0.045)
[2021-05-09 04:30] LABS: Dohle Bodies 1+; Eosinophils # (auto) 0.02 K/uL (0-0.5); Eosinophils % (auto) 0.4 %; Immature Granulocytes # (auto) 0.01 K/uL (0.00-0.02); Immature Granulocytes % (auto) 0.2 %; Lymphocytes # (auto) 0.33 K/uL (1.2-3.4); Lymphocytes % (auto) 7.3 %; Monocytes # (auto) 0.17 K/uL (0.11-0.59); Monocytes % (auto) 3.8 %; Neutrophils # (auto) 3.98 K/uL (1.4-6.5); Neutrophils % (auto) 88.3 %
--- NOTE | 2021-05-09 06:34 | Electrocardiogram Report ---
Test Reason : Blood Pressure : / mmHG Vent. Rate : 107 BPM Atrial Rate : 107 BPM P-R Int : 192 ms QRS Dur : 144 ms QT Int : 356 ms P-R-T Axes : 069 006 011 degrees QTc Int : 475 ms Sinus tachycardia with frequent , and consecutive Premature ventricular complexes Possible Left atrial enlargement Non-specific intra-ventricular conduction block Nonspecific T wave abnormality Abnormal ECG When compared with ECG of 30-APR-2021 18:54, Non-specific intra-ventricular conduction block has replaced Right bundle branch block Confirmed by Maikol Reyes ([id number]) on 05/09/2021 6:34:00 AM Referred By: Confirmed By:Maikol Reyes
[2021-05-09] MEDS: PANTOprazole 40 MG TAB PO SCH (08:56)
[2021-05-09] MEDS: FLUTICASONE/VILANTEROL 200/25MCG 14 PUFFS/INHALER INH SCH (08:57)
[2021-05-09] MEDS: MAGNESIUM OXIDE 400 MG TAB PO SCH (08:57)
--- NOTE | 2021-05-09 12:04 | Hospitalist Progress Note ---
Date of Service May 09, 2021 Assessment & Plan (1) Sepsis: Plan: Appeared septic with a lactate of 2.2, however, patient had pulmonary edema and was given Lasix 40 mg IV in setting of significant hypoxia. Placed on broad- spectrum antibiotics including cefepime and Flagyl. (2) Acute respiratory failure with hypoxia: Plan: Recent admission for aspiration pneumonia, sent home on clindamycin, returned and now on high flow nasal cannula at 12 L/min oxygenating 92%. (3) Aspiration pneumonia: Plan: Chronic permissive aspiration after multiple speech evaluations, patient does not wish for an alternative way of feeding. Palliative consult placed for goals of care. (4) RADHA (acute kidney injury): Plan: Likely secondary to sepsis, or Lasix use.Monitor BMP in a.m. (5) Elevated troponin: Plan: Elevated troponin likely related to sepsis and chronic aspiration pneumonia. Echocardiogram reveals no significant change from the outpatient study October 2017. (6) Immunosuppressed status: Plan: Underlying rheumatoid arthritis on Plaquenil and prednisone, continue these agents now. (7) DVT prophylaxis: Plan: Lovenox DNR/DNI Disposition-pending palliative discussion, PT/OT. DO Yeison Ramos Hospitalist Admission and Anticipated Discharge Date Admission Date: May 08, 2021 Subjective 89-year-old man presents with acute respiratory failure secondary to aspiration pneumonia Chronic permissive aspiration status post multiple speech therapy evaluations, there is a care alert on his chart that he declines further speech intervention Tolerating pured diet Some shortness of breath and cough with productive sputum Denies any pain or chest pain [place] he was doing fine at home after discharge. Marc Colindreser at home found him with an oxygen level of 79%. Review of Systems Review of Systems: All systems reviewed and negative except as indicated above. Physical Exam Physical Exam: CONSTITUTIONAL: WNWD, vitals as above, generally well- appearing, NAD EYES: normal conjunctivae, no scleral icterus ENT: external ear and nose normal, MMM NECK: trachea midline RESPIRATORY: clear to auscultation bilaterally, no crackles, rales or wheezes, normal respiratory effort CARDIOVASCULAR: regular rate and rhythm, S1 and 2 heard without murmurs, gallops or rubs, no JVD, no peripheral edema CHEST: inspection of chest was normal GASTROINTESTINAL: soft, nontender, ND, no guarding, +urostomy MUSCULOSKELETAL: strength 5/5 throughout, head is normocephalic and atraumatic, no gross focal deficits. SKIN: warm and dry NEUROLOGIC: CN 2-12 grossly intact, normal cognition, normal speech, no tremor. No gross focal deficits. PSYCHIATRIC: alert cooperative and oriented to person, place and time. Euthymic mood, makes good eye contact, language grossly intact, recent and remote memory grossly intact--some memory issues noted. Results & Data Results & Data ([facility]) Vital Signs (Past 12 Hours) Vital Signs Temp Pulse Pulse Resp BP Pulse Ox 05/09/21 10:18 96 H 20 94 05/09/21 08:00 36.9 C 95 H 17 94/55 L 98 05/09/21 07:28 91 H 05/09/21 07:15 22 93 05/09/21 04:12 36.4 C L 94 H 22 97/62 L 94 05/09/21 03:40 97 H 24 90 05/09/21 01:15 89 28 H 88 L Laboratory Results Short CBC 05/08/21 05/09/21 Range/Units 15:34 03:29 WBC 6.91 4.51 L (4.8-10.8) K/uL Hgb 12.3 L 12.0 L (14.0-18.0) g/dL Hct 38.7 L 37.1 L (42-52) % Plt Count 277 290 (130-400) K/uL BMP 05/08/21 05/09/21 15:34 03:29 Sodium 134 L 137 Potassium 4.8 4.6 Chloride 104 106 Carbon Dioxide 23 23 BUN 33 H 36 H Creatinine 0.99 1.30 D Glucose 106 H 84 Calcium 8.8 8.8 Cardiac Enzymes 05/08/21 05/08/21 05/09/21 Range/Units 15:34 20:59 03:29 Troponin I 0.065 H* 0.122 H* 0.123 H* (0-0.045) ng/ml Liver Function 05/08/21 05/09/21 Range/Units 15:34 03:29 Total Bilirubin 0.6 0.8 (0.2-1) mg/dl AST 51 H 36 (15-37) U/L ALT 40 34 (12-78) Alkaline Phosphatase 87 77 (45-117) U/L Albumin 1.9 L 1.8 L (3.4-5.0) gm/dl Urine 05/08/21 Range/Units 18:00 Urine Color Dark Yellow Urine Appearance Cloudy A (Clear) Urine pH 6.0 (4.5-7.5) Ur Specific [place] 1.021 (1.000-1.030) Urine Protein 2+ H (Negative) Urine Glucose (UA) Negative (Negative) Medications Administered Current Inpatient Medications Acetaminophen (Acetaminophen 325 Mg Tab) 650 mg PO Q4H PRN PRN Reason: Pain or Fever Stop: 06/07/21 23:27 Al Hydrox/Mg Hydrox/Simethicone (Aluminum/Magnesium Susp 30 Ml Udc) 15 ml PO Q4H PRN PRN Reason: Dyspepsia Stop: 06/07/21 23:27 Albuterol (Albut/Ipratrop 3mg/0.5mg Neb 3 Ml Vial) 3 ml NEB QIDR GOGO Stop: 06/07/21 23:27 Last Admin: 05/09/21 10:16 Dose: 3 ml Documented by: Enoxaparin Sodium (Enoxaparin Inj 40 Mg/0.4 Ml Syr) 40 mg SQ Q24H GOGO Stop: 06/07/21 21:59 Last Admin: 05/09/21 00:38 Dose: 40 mg Documented by: Fluticasone/Vilanterol (Fluticasone/Vilanterol 200/25mcg 14 Puffs/Inhaler) 1 puffs INH DAILY GOGO Stop: 06/08/21 08:59 Last Admin: 05/09/21 08:57 Dose: 1 puffs Documented by: Guaifenesin (Guaifenesin 600 Mg Tabcr) 600 mg PO Q12 GOGO Stop: 06/07/21 23:27 Last Admin: 05/09/21 08:56 Dose: 600 mg Documented by: Hydroxychloroquine Sulfate (Hydroxychloroquine Sulfate 200 Mg Tab) 200 mg PO BID GOGO Stop: 06/07/21 23:27 Last Admin: 05/09/21 08:56 Dose: 200 mg Documented by: Metronidazole (Flagyl) 500 mg in 100 mls @ 100 mls/hr IV Q8H GOGO Stop: 05/16/21 01:59 Last Admin: 05/09/21 10:39 Dose: 100 mls/hr Documented by: Cefepime HCl 2,000 mg/ Syringe 20 mls @ 5 mls/min IV Q12H [facility]; Protocol Stop: 05/16/21 03:59 Last Admin: 05/09/21 03:11 Dose: 5 mls/min Documented by: Magnesium Hydroxide (Magnesium Hydroxide Susp 30 Ml Udc) 30 ml PO Q12H PRN PRN Reason: Constipation Stop: 06/07/21 23:27 Magnesium Oxide (Magnesium Oxide 400 Mg Tab) 400 mg PO DAILY GOGO Stop: 06/08/21 08:59 Last Admin: 05/09/21 08:57 Dose: 400 mg Documented by: Ondansetron HCl (Ondansetron Inj 2 Mg/Ml 2 Ml Vial) 4 mg IV Q6H PRN PRN Reason: Nausea Stop: 06/07/21 23:27 Pantoprazole Sodium (Pantoprazole 40 Mg Tab) 40 mg PO DAILY [facility] Stop: 06/08/21 08:59 Last Admin: 05/09/21 08:56 Dose: 40 mg Documented by: Polyethylene Glycol (Polyethylene (Miralax) 17 Gm Pack) 17 gm PO DAILY PRN PRN Reason: Constipation Stop: 06/07/21 23:27 Prednisone (Prednisone 5 Mg Tab) 5 mg PO BID [facility] Stop: 06/07/21 23:27 Last Admin: 05/09/21 08:56 Dose: 5 mg Documented by: Sennosides (Senna 8.6 Mg Tab) 8.6 mg PO BID [facility] Stop: 06/07/21 23:27 Last Admin: 05/09/21 08:56 Dose: 8.6 mg Documented by:
--- NOTE | 2021-05-09 15:08 | Electrocardiogram Report ---
Test Reason : Blood Pressure : / mmHG Vent. Rate : 096 BPM Atrial Rate : 096 BPM P-R Int : 180 ms QRS Dur : 136 ms QT Int : 388 ms P-R-T Axes : 060 011 -17 degrees QTc Int : 490 ms Sinus rhythm with Premature atrial complexes Possible Left atrial enlargement Right bundle branch block Abnormal ECG When compared with ECG of 08-MAY-2021 15:20, Premature ventricular complexes are no longer Present T wave inversion no longer evident in Anterior leads Confirmed by Luis Billingsley ([id number]) on 05/09/2021 3:08:12 PM Referred By: REFERRED SELF Confirmed By:Luis Blilingsley
[2021-05-09] MEDS: ERYTHROMYCIN OP OINT 5 MG/GM 3.5 GM TUBE OPB SCH (20:51)
[2021-05-09] MEDS ORDERED: ALBUT/IPRATROP 3MG/0.5MG NEB 3 ML VIAL NEB PRN (22:34)
[2021-05-10] MEDS: metroNIDAZOLE 500 MG/100 ML BAG IV SCH ×3 (01:53→17:44)
[2021-05-10] MEDS: CEFEPIME 2,000 MG in SYRINGE 0 ML IV SCH ×2 (04:42→15:59)
[2021-05-10 07:39] LABS: Hemoglobin 11.4 g/dL (14.0-18.0); Mean Corpuscular Hgb Conc 31.7 g/dL (32-36); Mean Corpuscular Volume 91.6 fL (80-100); Mean Platelet Volume 9.4 fL (7.4-10.4); Platelet Count 396 K/uL (130-400); RDW Coefficient of Variation 14.9 % (11.5-14.5); RDW Standard Deviation 50.8 fL (36.4-46.3); Red Blood Count 3.93 M/uL (4.7-6.1); White Blood Count 5.88 K/uL (4.8-10.8)
[2021-05-10 08:21] LABS: BUN Creatinine Ratio 47.6 (10-20); Calcium 9.2 mg/dl (8.5-10.1); Est GFR (African American) 69.9 ml/min; Est GFR (Non-African American) 60.3 ml/min; Potassium 4.1 mmol/L (3.5-5.1)
[2021-05-10] MEDS: FLUTICASONE/VILANTEROL 200/25MCG 14 PUFFS/INHALER INH SCH (08:53)
[2021-05-10] MEDS: HYDROXYCHLOROQUINE SULFATE 200 MG TAB PO SCH ×2 (08:54→20:51)
[2021-05-10] MEDS: predniSONE 5 MG TAB PO SCH ×2 (08:54→20:52)
[2021-05-10] MEDS: SENNA 8.6 MG TAB PO SCH ×2 (08:58→20:52)
[2021-05-10] MEDS: MAGNESIUM OXIDE 400 MG TAB PO SCH (08:58)
[2021-05-10] MEDS: PANTOprazole 40 MG TAB PO SCH (08:58)
[2021-05-10] MEDS: guaiFENesin 600 MG TABCR PO SCH ×2 (08:58→20:50)
--- NOTE | 2021-05-10 13:27 | Hospitalist Progress Note ---
Date of Service May 10, 2021 Assessment & Plan (1) Sepsis: Plan: Appeared septic with a lactate of 2.2, however, patient had pulmonary edema and was given Lasix 40 mg IV in setting of significant hypoxia. Currently on cefepime and Flagyl. (2) Acute respiratory failure with hypoxia: (3) Aspiration pneumonia: Plan: Recent admission for aspiration pneumonia, sent home on clindamycin, returned and now on high flow nasal cannula at 12 L/min oxygenating 92%. Chronic permissive aspiration after multiple speech evaluations, patient does not wish for an alternative way of feeding. Palliative consult placed for goals of care. Patient reported he does not want any tubefeeding (4) RADHA (acute kidney injury): Plan: Likely secondary to sepsis, or Lasix use. Cr improved to 1.09 today (5) Elevated troponin: Plan: Elevated troponin likely related to sepsis and chronic aspiration pneumonia. Echocardiogram reveals no significant change from the outpatient study October 2017. (6) Immunosuppressed status: Plan: Underlying rheumatoid arthritis on Plaquenil and prednisone, continue these agents now. (7) DVT prophylaxis: Plan: Lovenox DNR/DNI Disposition-pending palliative discussion, PT/OT. Patient reports he will need more help and resources than can provide as she has chronic problems too. Admission and Anticipated Discharge Date Admission Date: May 08, 2021 Subjective 89-year-old man presents with acute respiratory failure secondary to aspiration pneumonia Patient seen and examined Continues to report cough especially with eating, Reports shortness of breath Denies any chest pain. Reports poor appetite. No fevers, chills Physical Exam Constitutional: + ill appearing; no acute distress Eyes: PERRL, conjunctivae normal, anicteric sclerae ENMT: external ear and nose normal, oropharynx normal Respiratory: On nasal oxygen, coarse crackles bilaterally Cardiovascular: RRR, S1-S2 Gastrointestinal (Abdomen): normal bowel sounds, soft, nontender, no hepatosplenomegaly Musculoskeletal: No pedal edema Neurologic: PERRL, EOMI, accommodation nl, no face palsy, no dysarthria Psychiatric: A+Ox3, euthymic affect Results & Data Results & Data ([facility]) Vital Signs (Past 12 Hours) Vital Signs Temp Pulse Pulse Pulse Resp BP Pulse Ox 05/10/21 11:26 36.8 C 100 H 20 140/63 93 12/11/21 07:21 101 H 05/10/21 06:37 36.8 C 101 H 22 139/82 95 05/10/21 03:23 36.8 C 101 H 24 132/77 92 05/10/21 01:26 Pulse Ox 05/10/21 11:26 05/10/21 07:21 05/10/21 06:37 05/10/21 03:23 05/10/21 01:26 95 Laboratory Results Abnormal lab results 05/10/21 05/10/21 Range/Units 07:07 07:07 RBC 3.93 L (4.7-6.1) M/uL Hgb 11.4 L (14.0-18.0) g/dL Hct 36.0 L (42-52) % MCHC 31.7 L (32-36) g/dL RDW Std Deviation 50.8 H (36.4-46.3) fL RDW Coeff of Angela 14.9 H (11.5-14.5) % Chloride 112 H (98-107) mmol/L BUN 52 H (7-18) mg/dl BUN/Creatinine Ratio 47.6 H (10-20) Glucose 119 H (70-99) mg/dl
[2021-05-10] MEDS ORDERED: SCOPOLAMINE 1 MG TDSY TD ONE (16:07)
[2021-05-10] MEDS: CHECK SCOPOLAMINE PATCH PLACEMENT SCH ×2 (17:44→23:52)
[2021-05-10] MEDS: ERYTHROMYCIN OP OINT 5 MG/GM 3.5 GM TUBE OPB SCH (21:00)
[2021-05-10] MEDS: ENOXAPARIN INJ 40 MG/0.4 ML SYR SQ SCH (21:01)
[2021-05-10] MEDS ORDERED: ALUMINUM/MAGNESIUM/SIMETH (MAALOX MAX) 30 ML UDC PO PRN (22:49)
[2021-05-11] MEDS: metroNIDAZOLE 500 MG/100 ML BAG IV SCH ×3 (01:15→17:18)
[2021-05-11] MEDS: CEFEPIME 2,000 MG in SYRINGE 0 ML IV SCH ×2 (04:22→17:18)
[2021-05-11] MEDS: CHECK SCOPOLAMINE PATCH PLACEMENT SCH ×2 (07:53→16:25)
[2021-05-11] MEDS: FLUTICASONE/VILANTEROL 200/25MCG 14 PUFFS/INHALER INH SCH (07:53)
[2021-05-11] MEDS: guaiFENesin 600 MG TABCR PO SCH ×2 (07:56→21:11)
[2021-05-11] MEDS: PANTOprazole 40 MG TAB PO SCH (07:56)
[2021-05-11] MEDS: MAGNESIUM OXIDE 400 MG TAB PO SCH (07:56)
[2021-05-11] MEDS: predniSONE 5 MG TAB PO SCH ×2 (07:56→21:11)
[2021-05-11] MEDS: SENNA 8.6 MG TAB PO SCH ×2 (07:56→21:11)
[2021-05-11] MEDS: HYDROXYCHLOROQUINE SULFATE 200 MG TAB PO SCH ×2 (07:56→21:11)
[2021-05-11 08:15] LABS: Hematocrit (blood only) 40.3 % (42-52); Hemoglobin 12.7 g/dL (14.0-18.0); Mean Corpuscular Hemoglobin 29.3 pg (25-34); Mean Corpuscular Hgb Conc 31.5 g/dL (32-36); Mean Corpuscular Volume 92.9 fL (80-100); Mean Platelet Volume 9.4 fL (7.4-10.4); Platelet Count 484 K/uL (130-400); RDW Coefficient of Variation 15.2 % (11.5-14.5); RDW Standard Deviation 51.8 fL (36.4-46.3); Red Blood Count 4.34 M/uL (4.7-6.1); White Blood Count 7.05 K/uL (4.8-10.8)
[2021-05-11 08:49] LABS: BUN Creatinine Ratio 53.5 (10-20); Calcium 9.7 mg/dl (8.5-10.1); Creatinine Clr Calc Pharmacy 46.9 ml/min; Est GFR (Non-African American) 63.8 ml/min; Potassium 4.4 mmol/L (3.5-5.1)
--- NOTE | 2021-05-11 11:23 | Hospitalist Progress Note ---
Date of Service May 11, 2021 Assessment & Plan (1) Sepsis: Plan: Appeared septic with a lactate of 2.2, however, patient had pulmonary edema and was given Lasix 40 mg IV in setting of significant hypoxia. Currently on cefepime and Flagyl. 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 Had further conversations with patient. He does not want any escalation of care. He stated he will like eventually like to be discharged home on home hospice/comfort care but is worried if who has medical problems will be able to take care of him at home. He will like to explore the services/resources/ other equipments such as suctioning device with CM and palliative prior to dc. He will want us to continue current treatment/antibiotics till then. He does not want any escalation beyond current therapies at this time He maintains DNR and no feeding tube. CM notified Called and updated her per patient's request (4) RADHA (acute kidney injury): Plan: Likely secondary to sepsis, or Lasix use. Cr 1.04 today Hypernatremic today. likely due to poor oral intake (5) Elevated troponin: Plan: Elevated troponin likely related to sepsis and chronic aspiration pneumonia. Echocardiogram reveals no significant change from the outpatient study October 2017. (6) Immunosuppressed status: Plan: Underlying rheumatoid arthritis on Plaquenil and prednisone, continue these agents now. (7) DVT prophylaxis: Plan: Lovenox DNR/DNI Disposition-Possibly home with hospice care Patient currently in no distress. Will move from PCU to med/surg. D/C tele and hold off instituting full comfort measures for now per patient's wishes Admission and Anticipated Discharge Date Admission Date: May 08, 2021 Subjective 89-year-old man presents with acute respiratory failure secondary to aspiration pneumonia Patient seen and examined Continues to report cough and shortness of breath Denies any chest pain. No fevers, chills, abd pain, nausea or vomiting Requiring oxymask Physical Exam Constitutional: + ill appearing; no acute distress Eyes: PERRL, conjunctivae normal, anicteric sclerae ENMT: external ear and nose normal, oropharynx normal Respiratory: Coarse breath sounds globally. On oxymask Cardiovascular: Rate/Rhythm: regular rhythm and + tachycardic S1 S2 Gastrointestinal (Abdomen): normal bowel sounds, soft, nontender, no hepatosplenomegaly Musculoskeletal: No pedal edema Neurologic: PERRL, EOMI, accommodation nl, no face palsy, no dysarthria Psychiatric: A+Ox3, euthymic affect Results & Data Results & Data ([facility]) Vital Signs (Past 12 Hours) Vital Signs Temp Pulse Pulse Pulse Resp BP Pulse Ox 05/11/21 07:23 101 H 05/11/21 07:20 36.7 C 101 H 20 154/99 H 91 05/11/21 03:37 37.0 C 93 H 25 H 129/75 98 05/10/21 23:22 37.0 C 105 H 27 H 132/75 90 Laboratory Results Abnormal lab results 05/11/21 05/11/21 Range/Units 07:51 07:51 RBC 4.34 L (4.7-6.1) M/uL Hgb 12.7 L (14.0-18.0) g/dL Hct 40.3 L (42-52) % MCHC 31.5 L (32-36) g/dL RDW Std Deviation 51.8 H (36.4-46.3) fL RDW Coeff of Angela 15.2 H (11.5-14.5) % Plt Count 484 H (130-400) K/uL Sodium 150 H (136-145) mmol/L Chloride 117 H (98-107) mmol/L BUN 56 H (7-18) mg/dl BUN/Creatinine Ratio 53.5 H (10-20) Glucose 100 H (70-99) mg/dl
[2021-05-11] MEDS ORDERED: CHECK SCOPOLAMINE PATCH PLACEMENT SCH (16:00)
[2021-05-11] MEDS ORDERED: MoRPHine SULFATE 2 MG/ML CARP IV PRN (18:07)
[2021-05-11] MEDS ORDERED: MoRPHine SULFATE 2 MG/ML CARP IV STA (19:39)
[2021-05-11] MEDS ORDERED: LORazepam 0.5 MG/1 ML VIAL IV PRN (21:17)
[2021-05-11] MEDS ORDERED: SCOPOLAMINE 1 MG TDSY TD ONE (21:17)
[2021-05-11] MEDS: MoRPHine SULFATE 2 MG/ML CARP IV PRN ×2 (21:27→23:37)
[2021-05-11] MEDS: ERYTHROMYCIN OP OINT 5 MG/GM 3.5 GM TUBE OPB SCH (21:36)
[2021-05-11] MEDS: ENOXAPARIN INJ 40 MG/0.4 ML SYR SQ SCH (21:37)
--- NOTE | 2021-05-11 21:47 | Electrocardiogram Report ---
Test Reason : Blood Pressure : / mmHG Vent. Rate : 106 BPM Atrial Rate : 106 BPM P-R Int : 188 ms QRS Dur : 144 ms QT Int : 386 ms P-R-T Axes : 054 -09 -12 degrees QTc Int : 512 ms Sinus tachycardia with Fusion complexes Possible Left atrial enlargement Right bundle branch block Inferior infarct Abnormal ECG When compared with ECG of 09-MAY-2021 07:22, Fusion complexes are now Present Premature atrial complexes are no longer Present Confirmed by Maikol Reyes ([id number]) on 05/11/2021 9:46:53 PM Referred By: REFERRED SELF Confirmed By:Maikol Reyes
[2021-05-11] MEDS: ATROPINE SULFATE 1% OP SOLN 5 ML BTL PO PRN ×2 (21:48→23:48)
[2021-05-11] MEDS ORDERED: MoRPHine SULF/NSS 250 MG/250 ML BTL IV SCH (23:45)
[2021-05-11] MEDS ORDERED: STAT IV Infusion **Titration per Protocol STA (23:51)
[2021-05-12] MEDS: CHECK SCOPOLAMINE PATCH PLACEMENT SCH (00:13)
--- NOTE | 2021-05-12 01:34 | Death Pronouncement Note ---
Date of Service May 12, 2021 Pronouncement Note Admission Date Admission Date: May 08, 2021 Date and Time of Date of : 05/12/21 Time of : 01:06 Contributing Factors (1) Sepsis: (2) Acute respiratory failure with hypoxia: (3) Aspiration pneumonia: (4) RADHA (acute kidney injury): (5) Elevated troponin: (6) Immunosuppressed status: (7) DVT prophylaxis: Additional Data Confirmation of : no pulse, no respirations, no heart sounds and pupils fixed and dilated Family: contacted Attending physician: Alondra March MD
--- NOTE | 2021-05-13 23:03 | Discharge Summary ---
Date of Service May 12, 2021 Admission HPI Per Admitting Provider This is a 89-year-old male who has a significant past medical history of chronic pulmonary aspiration, CAD, HTN, rheumatoid arthritis, history of bladder cancer with ileal conduit who presents to ED secondary to hypoxia and ill feeling. Of significance patient was hospitalized on 04/30-05/02 secondary to severe sepsis, aspiration pneumonia, RADHA and hypoxia. He was treated with IV antibiotics and wean off oxygen. He was discharged home with a 7-day course of oral clindamycin. He has been taking antibiotics as prescribed and applesauce. 1 days ago at home when out to evaluate the patient today was having significant difficulty caring for patient, was found to be cyanotic and hypoxic at approximately 79%. EMS was summoned and he was brought to ED where he is currently requiring BiPAP therapy. Of significance patient has been followed by speech therapy in the past since VFSS completed in 2011. He did have an open J- tube after that study. 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 Unfortunately he has been found to aspirate slightly on thin, nectar thick liquid as well as putting. Patient has expressed in the past as long as he is able to swallow he wishes to continue to eat by mouth and refused PEG tube in the past. He states he continues to have productive cough of thick green sputum. He denies any fever, but complains of chills. He denies lightheadedness, dizziness, chest pain, current shortness of breath, nausea, vomiting, abdominal pain. Overall he states his appetite has been very poor. Since being discharged home he has been ambulating very little and spending most of the time in recliner. In ED he continues to remain on BiPAP. He tested negative for SARS-CoV-2 as well as influenza and RSV. Chest x-ray reveals moderate pulmonary edema, right upper lobe airspace opacities which may repres ent atelectasis, pneumonia and/or aspiration. Lab work significant for elevated procalcitonin 0.81, troponin 0.065, lactate 2.2, VBG WNL and white count WNL. He received IV cefepime. He was also prescribed oral Flagyl; however, nurse hesitant to give antibiotic due to aspiration. Admission Exam Per Admitting Provider Physical Exam: Constitutional: Frail, cachectic, elderly, male, BiPAP in place, vitals as above, NAD, answers questions appropriately Head: Normocephalic, Atraumatic, bilateral temporal wasting Eyes: PERRL, conjunctivae normal, anicteric sclerae ENMT: external ear and nose normal, oropharynx normal, dry mucous membranes Neck: trachea midline, no thyromegaly normal visual inspection Respiratory: Increased respiratory effort, bilateral rhonchi throughout, decreased breath sounds at bases, no wheezes or rails, on BiPAP. Normal insp/exp effort, no accessory muscle use Cardiovascular: RRR, no murmur, no edema Vessels: no JVD or carotid bruit Chest: normal inspection of chest Abdomen: normal bowel sounds, soft, nontender, no hepatosplenomegaly Musculoskeletal: no cyanosis or clubbing, active range of motion x4 Skin: no rashes, warm and dry normal turgor Neurologic: PERRL, EOMI, accommodation nl, no face palsy, no dysarthria CN's II-XI intact bilaterally and moves all extremities Psychiatric: A+Ox3, euthymic affect Lymphatic: no cervical or axillary lymphadenopathy : deferred Principal Diagnosis Sepsis Acute respiratory failure with hypoxia Aspiration pneumonia Acute kidney injury Elevated troponin Immunosuppressed status with rheumatoid arthritis. Discharge Exam see note Discharge Data Allergies Allergy/AdvReac Type Severity Reaction Status Date / Time piperacillin Allergy Severe SHORTNESS Verified 05/08/21 15:46 OF BREATH tazobactam Allergy Severe SHORTNESS Verified 05/08/21 15:46 OF BREATH Sulfa (Sulfonamide Allergy Unknown SWELLING Verified 05/08/21 15:46 Antibiotics) propoxyphene AdvReac Unknown BLOOD Verified 05/08/21 15:46 PRESSURE DROPS Consultations 05/08/21 16:35 ED Decision to Admit Stat 05/09/21 18:15 Consult Palliative Care Routine Hospital Course (1) Sepsis: Appeared septic with a lactate of 2.2, however, patient had pulmonary edema and was given Lasix 40 mg IV in setting of significant hypoxia. Was started on broad spectrum cefepime and Flagyl. (2) Acute respiratory failure with hypoxia: (3) Aspiration pneumonia: On 05/11, he continued to report cough and shortness of breath, and was requiring oxymask. He did not wish for any escalation of care. Had further conversations with patient. He does not want any escalation of care. He stated he would like to be discharged home on home hospice/comfort care. He maintained not wanting a feeding tube. He subsequently passed on 05/12 at 1:06am (4) RADHA (acute kidney injury): Likely secondary to sepsis, or Lasix use with hypernatremia thought due to poor oral intake (5) Elevated troponin: Elevated troponin likely related to sepsis and chronic aspiration p neumonia. Echocardiogram revealed no significant change from the outpatient study October 2017. (6) Immunosuppressed status: Underlying rheumatoid arthritis on Plaquenil and prednisone; these agents were continued this hospital stay Total Time Total Time Spent Total Time Spent (In Minutes): 60 Discharge Plan Discharge Items Patient Disposition: Discharge Diagnosis: Sepsis Acute respiratory failure with hypoxia Aspiration pneumonia Acute kidney injury Elevated troponin Immunosuppressed status with rheumatoid arthritis. Other Date/Time: 05/12/21 01:06
== END 2021-05-12 02:05 | disposition expired | DRG 871 ==
LOC: ED 14:50 → SUATTDRO 17:00 → EDINP 17:00 → 2S 17:33 → 3E 05-11 20:44